=== PATIENT | female | born 1995 | race Hispanic/Latino ===

== ENCOUNTER → 2017-09-30 | Emergency (ER) | payer OTHER ==
[~2017-09-30] VITALS: Ht 160 cm; Wt 67.1 kg
[~2017-09-30] MED LIST: ABILIFY5 MG PO; ACETAMINOPHEN/CODEINE ELIX 120-12 MG/5 ML UDC NG ONE; ALBUTEROL SULF 0.083% NEB SOLN 3 ML NEB NEB STA; CEFDINIR300 MG PO; CEFUROXIME250 MG PO; DEXAMETHASONE SOD PHOS 10 MG/1 ML VIAL INJ ONE; ELAVIL10 MG; HYDROXYZINE HCL25 MG PO; IPRATROPIUM BROMIDE 0.02% 2.5 ML NEB NEB STA; LEXAPRO10 MG PO; ONDANSETRON HCL INJ 2 MG/ML VIAL IV ONE; PYRIDIUM100 MG PO; SEROQUEL25 MG PO; SODIUM CHLORIDE 0.9% 1000ML 1,000 ML IV STA; TOPAMAX25 MG PO; ULTRAM 50MG50 MG PO; Z MELATONIN PO; Z VYVANSE; Z.0.PREVACID15 MG MT; [UNRECOGNIZED DRUG - OTHER] MT
[2017-09-30 17:37] LABS: BASOPHILS % 0.4 % (0.0-1.0); EOSINOPHILS # (AUTO) 0.2 (0.0-0.4); EOSINOPHILS % 2.1 % (0.0-6.0); HEMATOCRIT 37.7 % (34.2-44.1); HEMOGLOBIN 12.2 g/dL (12.0-16.0); LYMPHOCYTES # (AUTO) 4.5 (1.0-3.2); MEAN CORPUSCULAR HEMOGLOBIN 25.3 pg (28-32); MEAN CORPUSCULAR HGB CONC 32.4 g/dL (31-35); MEAN CORPUSCULAR VOLUME 78.1 fL (81-99); MONOCYTES # (AUTO) 0.7 (0.2-0.8); MONOCYTES % 8.7 % (4.4-11.3); NEUTROPHILS # (AUTO) 2.7 (2.1-6.9); NEUTROPHILS % 33.6 % (38.7-80.0); PLATELET COUNT 370 x10e3/uL (140-360); RED BLOOD COUNT 4.83 x10e6/uL (3.6-5.1); RED CELL DISTRIBUTION WIDTH 14.6 % (11.7-14.4)
[2017-09-30 17:43] LABS: BILIRUBIN,URINE NEGATIVE (NEGATIVE); CLARITY,URINE HAZY (CLEAR); COLOR,URINE YELLOW (YELLOW); KETONES,URINE NEGATIVE (NEGATIVE); LEUKOCYTE ESTERASE ,URINE 1+ (NEGATIVE); NITRITE,URINE NEGATIVE (NEGATIVE); PROTEIN,URINE DIPSTICK NEGATIVE (NEGATIVE); URINE UROBILINOGEN 0.2 mg/dL (0.2 - 1)
[2017-09-30 17:44] LABS: STREPTOCOCCUS GRP A ANTIGEN NEGATIVE (NEGATIVE)
[2017-09-30 17:48] LABS: ALANINE AMINOTRANSFERASE 16 IU/L (0-55); ALBUMIN 3.8 g/dL (3.5-5.0); ALBUMIN/GLOBULIN RATIO 0.9 (0.8-2.0); ALKALINE PHOSPHATASE 88 IU/L (40-150); ANION GAP 11.2 mmol/L (8-16); BLOOD UREA NITROGEN 9 mg/dL (7-26); BUN/CREATININE RATIO 10 (6-25); CARBON DIOXIDE 21 mmol/L (22-29); CHLORIDE 111 mmol/L (98-107); CREATININE, SERUM 0.91 mg/dL (0.57-1.11); EST GLOMERULAR FILTRATION RATE > 60 ML/MIN (60-); GLUCOSE 96 mg/dL (74-118); LIPASE 37 U/L (8-78); POTASSIUM 3.2 mmol/L (3.5-5.1); SODIUM 140 mmol/L (136-145)
[2017-09-30 17:53] LABS: INFLUENZAE A&B ANTIGEN (RAPID) NEGATIVE (NEGATIVE)
[2017-09-30 17:55] LABS: BACTERIA,URINE MODERATE /HPF; EPITHELIAL CELLS,URINE MODERATE /LPF; WBC,URINE (MAN) 0-5 /HPF (0-5)
--- NOTE | 2017-09-30 18:05 | Diagnostic Imaging Report ---
EXAM: XR CHEST 2 VIEWS DATE: 09/30/2017 4:22 PM INDICATION: Cough COMPARISON: 08/21/2017 FINDINGS: Lines and Tubes: None Heart and Mediastinum: No acute findings. Lungs and Pleura: Minimal opacities in the lung bases statistically represent atelectasis, however, infectious process could have a similar appearance. Bones and Soft Tissues: No acute findings. IMPRESSION: 1. Probable basilar atelectasis. Correlation recommended. Signed by: Dr. Neo Leyva MD on 09/30/2017 6:02 PM
[2017-09-30 20:02] VITALS: BP 103/89
== END | disposition home or self-care (01) ==
LOC: ER 16:11
DX: J20.9 Acute bronchitis, unspecified (principal); J06.9 Acute upper respiratory infection, unspecified; R19.7 Diarrhea, unspecified; R11.2 Nausea with vomiting, unspecified; F31.9 Bipolar disorder, unspecified; K21.9 Gastro-esophageal reflux disease without esophagitis; G43.909 Migraine, unspecified, not intractable, without status migrainosus
CPT/HCPCS: 36415; 71020; 80053; 81001; 83518; 83690; 84702; 85025; 87070; 87086; 87400; 94644; 99284; J7030

== ENCOUNTER 2017-10-28 20:40 | Emergency (ER) | payer OTHER ==
[~2017-10-28] VITALS: Ht 160 cm; Wt 67.1 kg
[~2017-10-28 20:40] MED LIST changes: -ACETAMINOPHEN/CODEINE ELIX 120-12 MG/5 ML UDC NG ONE; -ALBUTEROL SULF 0.083% NEB SOLN 3 ML NEB NEB STA; -DEXAMETHASONE SOD PHOS 10 MG/1 ML VIAL INJ ONE; -IPRATROPIUM BROMIDE 0.02% 2.5 ML NEB NEB STA; -ONDANSETRON HCL INJ 2 MG/ML VIAL IV ONE; -SODIUM CHLORIDE 0.9% 1000ML 1,000 ML IV STA
--- OUTSIDE RECORDS SUMMARY | 2017-10-28 20:43 | XMS REPORT ---
Author Author [facility] Address Unknown Phone Unavailable Care Team Providers Care Long Distance Billing Operator Name Role Phone KIMMIE GONZALEZ Unavailable Unavailable JOSE ALBERTO RUBIO Unavailable Unavailable Problems This patient has no known problems. Allergies, Adverse Reactions, Alerts This patient has no known allergies or adverse reactions. Medications This patient has no known medications. Results Test Description Test Time Test Comments Text Results Atomic Results Result Comments CHEST 2 VIEWS [place] [address] Patient Name: MARII KITCHEN MR #: [id number] : 1995 Age/Sex: 22/F Req #: [id number] Adm Physician: Ordered by: JESSY HO JAVA APPLICATION DEVELOPER Report #: [id number] Location: ER Room/Bed: Procedure: [id number] DX/CHEST 2 VIEWS Exam Date: 09/30/17 Exam Time: 1736 REPORT STATUS: Signed EXAM: XR CHEST 2 VIEWS DATE: 09/30/2017 4:22 PM INDICATION: Cough COMPARISON: 08/21/2017 FINDINGS: Lines and Tubes: None Heart and Mediastinum: No acute findings. Lungs and Pleura: Minimal opacities in the lung bases statistically represent atelectasis, however, infectious process could have a similar appearance. Bones and Soft Tissues: No acute findings. IMPRESSION: 1. Probable basilar atelectasis. Correlation recommended. Signed by: Dr. Neo Leyva MD on 09/30/2017 6:02 PM Dictated By: NEO LEYVA MD 01 Transcribed By: KEISHA on 1801 COPY TO: JESSY HO NP CHEST SINGLE (PORTABLE) [place] [address] Patient Name: MARII KITCHEN MR #: [id number] : 1995 Age/Sex: 21/F Req #: [id number] Adm Physician: JOSE ALBERTO RUBIO MD Ordered by: JOHANNY BLACKWELL MD Report #: [id number] Location: [facility] Room/Bed: [place] [address] Procedure: [id number] DX/CHEST SINGLE (PORTABLE) Exam Date: 08/21/17 Exam Time: 2300 REPORT STATUS: Signed EXAM: CHEST SINGLE (PORTABLE), AP 1 view DATE: 08/21/2017 10:49 PM Time stamp on exam: 2253 hours INDICATION: Cough COMPARISON: None FINDINGS: LINES/TUBES: None LUNGS: No consolidations or edema. PLEURA: No effusions or pneumothorax. HEART AND MEDIASTINUM: Normal size and contour. BONES AND SOFT TISSUES: No acute findings. IMPRESSION: No acute thoracic abnormality. Signed by: Dr. Antonio Torres M.D. on 08/21/2017 11:30 PM Dictated By: ANTONIO TORRES MD 29 Transcribed By: KEISHA on 2329 COPY TO: JOHANNY BLACKWELL MD CT ABDOMEN/PELVIS WO [place] [address] Patient Name: MARII KITCHEN MR #: [id number] : 1995 Age/Sex: 21/F Req #: [id number] [facility] Physician: Ordered by: JESSY HO NP Report #: [id number] Location: ER Room/Bed: Procedure: [id number] CT/CT ABDOMEN/PELVIS WO Exam Date: 08/21/17 Exam Time: 1725 REPORT STATUS: Signed PROCEDURE: CT ABDOMEN AND PELVIS WITHOUT CONTRAST TECHNIQUE: The abdomen and pelvis were scanned utilizing a multidetector helical scanner from the diaphragm to the lesser trochanter after the oral administration of water. 2). No IV contrast was administered per stone protocol. Coronal and sagittal multiplanar reformations were obtained. COMPARISON: None. INDICATIONS: STONE PROTOCOL, BACK PAIN, UTI SINCE SAT FINDINGS: ABSENCE OF INTRAVENOUS CONTRAST DECREASES SENSITIVITY FOR DETECTION OF FOCAL LESIONS AND VASCULAR PATHOLOGY. LOWER THORAX: Lung bases are clear. HEPATOBILIARY: Moderate to marked diffuse hepatic steatosis. The liver is mildly enlarged, measuring 16 cm in the right midclavicular line. Normal contour. No focal lesions. No biliary ductal dilation. Gallbladder is unremarkable. SPLEEN: No splenomegaly. PANCREAS: No focal masses or ductal dilatation. ADRENALS: No adrenal nodules. KIDNEYS/URETERS: No renal or ureteral calculi. No hydronephrosis, hydroureter, or evidence of obstruction. No renal contour abnormalities. No significant perinephric stranding. PELVIC ORGANS/BLADDER: No bladder calculi. Bladder is decompressed and grossly unremarkable. Uterus is unremarkable. No adnexal masses. PERITONEUM / RETROPERITONEUM: No free air or fluid. LYMPH NODES: No lymphadenopathy. VESSELS: Unremarkable. GI TRACT: No bowel dilation or evidence of obstruction. Appendix is not identified, and normal in caliber. No pericolonic inflammatory changes. Stomach is unremarkable. BONES AND SOFT TISSUES: Unremarkable. IMPRESSION: 1. no renal, ureteral, or bladder calculi. No hydronephrosis or obstruction. 2. Mild hepatomegaly with moderate to marked diffuse hepatic steatosis. No focal lesions. Swati Anderson M.D. Dictated by: Swati Anderson M.D. on 01/2017 at 17:58 Electronically approved by: Swati Anderson M.D. on 08/21/2017 at 17:58 Dictated By: SWATI ANDERSON MD 57 Transcribed By: GRETA on 08/21/171757 COPY TO: JESSY HO NP
--- OUTSIDE RECORDS SUMMARY | 2017-10-28 20:43 | XMS REPORT | Clinical Summary ---
Author Author [facility] Address Unknown Phone Unavailable Care Team Providers Care Exhaust Emissions Automotive Technician Name Role Phone Asked, Pcp PCP Unavailable Allergies Active Allergy Reactions Severity Noted Date Comments Ciprofloxacin 10/02/2016 Dexamethasone 10/02/2016 Iodine 10/02/2016 Current Medications Prescription Sig. Disp. Refills Start End Date Status Date divalproex (DEPAKOTE) 250 Take 500 mg by mouth 3 Active MG EC tablet (three) times a day. PARoxetine (PAXIL) 20 MG Take 20 mg by mouth every Active tablet morning. OLANZapine (ZYPREXA) 5 MG Take 5 mg by mouth Active tablet nightly. topiramate (TOPAMAX) 100 Take 100 mg by mouth 2 Active MG tablet (two) times a day. butalbital-acetaminophen- Take 1 tablet by mouth Active caff (FIORICET, ESGIC) every 4 (four) hours as 50-325-40 mg per tablet needed for headaches. LORAZepam (ATIVAN) 1 MG Take 1 mg by mouth every Active tablet 6 (six) hours as needed for anxiety. meclizine (ANTIVERT) 12.5 Take 12.5 mg by mouth 3 Active mg tablet (three) times a day as needed for dizziness. metoclopramide (REGLAN) 5 Take 5 mg by mouth 4 Active MG tablet (four) times a day. keTOROlac (TORadol) 10 mg Take 10 mg by mouth every 12/16/19 Discontin tablet 6 (six) hours as needed 17 ued for moderate pain. ondansetron (ZOFRAN) 4 MG Take 1 tablet (4 mg 20 tablet 0 03/22/20 03/27/20 tablet total) by mouth every 6 17 17 (six) hours for 5 days. sulfamethoxazole-trimetho Take 1 tablet by mouth 2 14 tablet 0 03/29/20 prim (BACTRIM DS) 800-160 (two) times a day for 7 17 17 mg per tablet days. smx-tmp DS (BACTRIM) 800-160 mg tabs (1tab q12 D10) Active Problems Problem Noted Date Nausea 12/14/2016 Encounters Date Type Specialty Care Team Description 03/22/2017 Emergency Emergency Medicine Marla Louie, Urinary tract infection MD without hematuria, site unspecified (Primary Dx); Anxiety; Migraine without status migrainosus, not intractable, unspecified migraine type; Dehydration; Concussion, without loss of consciousness, initial encounter 12/14/2016 [facility] Internal Medicine Pretty Perez MD Intractable abdominal - Encounter migraine (Primary Dx); 12/15/2016 Nausea after 10/27/2016 Family History Medical History Relation Name Comments Breast cancer Maternal Grandmother Cerebral aneurysm Maternal Grandmother Migraines Maternal Grandmother Diabetes Mother Migraines Mother Relation Name Status Comments Maternal Grandmother Mother Social History Tobacco Use Types Packs/Day Years Used Date Light Tobacco Smoker Alcohol Use Drinks/Week oz/Week Comments Yes occasional Sex Assigned at Date Recorded Not on file Last Filed Vital Signs Vital Sign Reading Time Taken Blood Pressure 102/66 03/22/2017 10:26 PM CDT Pulse 82 03/22/2017 10:26 PM CDT Temperature 36.9 C (98.4 F) 03/22/2017 2:45 PM CDT Respiratory Rate 20 03/22/2017 10:26 PM CDT Oxygen Saturation 93% 03/22/2017 10:26 PM CDT Inhaled Oxygen - - Concentration Weight - - Height 160 cm (5' 3") 12/14/2016 8:04 PM CDT Body Mass Index - - Plan of Treatment Health Maintenance Due Date Last Done Comments PAP SMEAR 2015 INFLUENZA VACCINE 04/17/2017 05/17/2016, 07/12/2015, 10/14/2012, Additional history exists Implants Implanted Type Area Reconstructive Surgeon Device Expiration Model / Identifier Date Serial / Lot Iud Results * Gram stain (03/22/2017 8:58 PM) Component Value Ref Range Gram stain result Rare WBC's Few Gram positive cocci in pairs Comment: Specimen Information Specimen Source: Urine Specimen Site: See UA Specimen Performing Laboratory Urine [facility] DEPARTMENT OF PATHOLOGY AND GENOMIC MEDICINE [address] [place] [address] * Urine culture (03/22/2017 8:58 PM) Component Value Ref Range Urine culture isolate Enterococcus faecalis 10-5 cfu/ml The performance characteristics of this assay on this isolate were validated by the Microbiology Laboratory at [facility]. This source has not been approved by the U.S. Food and Drug Administration. The results are not intended to be used as the sole means for clinical diagnosis or patient management. The Microbiology Laboratory is authorized under the clinical Laboratory Improvement Amendments of 1988 (CLIA-88) to perform high complexity testing. The performance characteristics of this assay on this isolate were validated by the Microbiology Laboratory at [facility]. This source has not been approved by the U.S. Food and Drug Administration. The results are not intended to be used as the sole means for clinical diagnosis or patient management. The Microbiology Laboratory is authorized under the clinical Laboratory Improvement Amendments of 1988 (CLIA-88) to perform high complexity testing. (A) Comment: Specimen Information Specimen Source: Urine Specimen Site: See UA Urine culture isolate Gram negative rods <10-1 cfu/ml (A) Specimen Performing Laboratory Urine [facility] DEPARTMENT OF PATHOLOGY AND GENOMIC MEDICINE [address] [place] [address] Organism Antibiotic Method Susceptibility Enterococcus faecalis Ampicillin ANISHA 1 mcg/mL: Susceptible Enterococcus faecalis Nitrofurantoin ANISHA <=16 mcg/mL: Susceptible Enterococcus faecalis Levofloxacin ANISHA <=1 mcg/mL: Susceptible Enterococcus faecalis Linezolid ANISHA <=1 mcg/mL: Susceptible Enterococcus faecalis Minocycline ANISHA <=1 mcg/mL: Susceptible Enterococcus faecalis Tetracycline ANISHA <=0.5 mcg/mL: Susceptible Enterococcus faecalis Vancomycin ANISHA 1 mcg/mL: Susceptible * Urinalysis screen and microscopy, with reflex to culture (03/22/2017 8:40 PM) Component Value Ref Range Specimen site Clean catch Color, UA Straw Appearance, UA Clear Specific gravity, UA 1.008 1.001 - 1.035 pH, UA 6.0 5.0 - 8.5 Protein, UA Negative Negative Glucose, UA Negative Negative Ketones, UA Negative Negative Bilirubin, UA Negative Negative Blood, UA Negative Negative Nitrite, UA Negative Negative Urobilinogen, UA <2.0 <2.0 Leukocyte esterase, UA Small (A) Negative Epithelial cells, UA 1 /HPF WBC, UA 6 (H) 0 - 4 /HPF RBC, UA 2 0 - 2 /HPF Bacteria, UA Moderate (A) None seen Yeast, UA None seen Yeast with pseudohyphae, None seen UA Sperm, UA Few (A) Specimen Performing Laboratory Urine [facility] DEPARTMENT OF PATHOLOGY AND GENOMIC MEDICINE [address] [place] [address] * hCG qualitative, urine screen (03/22/2017 8:40 PM) Component Value Ref Range hCG qualitative, urine NegativeComment: Sensitivity of HCG test: 25 mIU/mL Specimen Performing Laboratory Urine [facility] DEPARTMENT OF PATHOLOGY AND GENOMIC MEDICINE [address] [place] [address] * CT Head Wo Contrast (03/22/2017 7:20 PM) Specimen Performing Laboratory [facility] [address] [place] [address] Narrative EXAMINATION: CT HEAD WO CONTRAST CLINICAL HISTORY: concussionhead trauma COMPARISON:None TECHNIQUE: Noncontrast CT of the brain was performed from the skull base to the vertex. Both soft tissue and bone reconstruction algorithms are interpreted. CT imaging was performed with iterative reconstruction techniques and/or automated exposure control to reduce radiation dose. FINDINGS: No intracranial hemorrhage, extra-axial collection, or mass-effect is seen. No acute cortical insult is identified. No hyperdense vessel is seen. No fracture is seen. No air-fluid level is seen in the visualized portions of the paranasal sinuses. Mastoid air cells are clear. IMPRESSION: No acute intracranial abnormality identified. [facility]-[id number] Procedure Note Interface, Radiology Results Incoming - 03/22/2017 7:26 PM CDT EXAMINATION: CT HEAD WO CONTRAST CLINICAL HISTORY: concussion head trauma COMPARISON: None TECHNIQUE: Noncontrast CT of the brain was performed from the skull base to the vertex. Both soft tissue and bone reconstruction algorithms are interpreted. CT imaging was performed with iterative reconstruction techniques and/or automated exposure control to reduce radiation dose. FINDINGS: No intracranial hemorrhage, extra-axial collection, or mass-effect is seen. No acute cortical insult is identified. No hyperdense vessel is seen. No fracture is seen. No air-fluid level is seen in the visualized portions of the paranasal sinuses. Mastoid air cells are clear. IMPRESSION: No acute intracranial abnormality identified. [facility]-[id number] * Whole blood electrolytes & glucose (03/22/2017 3:06 PM) Component Value Ref Range Sodium, whole blood 143 135 - 148 mEq/L Potassium, whole blood 3.5 3.5 - 5.0 mEq/L Chloride, whole blood 109 98 - 112 mEq/L CO2 calculated, whole 27 24 - 31 mEq/L blood Glucose, whole blood 91 65 - 99 mg/dL Specimen Performing Laboratory Blood [facility] DEPARTMENT OF PATHOLOGY AND [facility] [address] [place] [address] * Estimated GFR (03/22/2017 3:06 PM) Only the most recent of 3 results within the time period is included. Component Value Ref Range GFR Non Af Amer 78 mL/min/1.73 m2 GFR Af Amer >90 mL/min/1.73 m2 Comment: Chronic kidney disease: <60 mL/min/1.73m2 Kidney failure: <15 mL/min/1.73m2 The estimated GFR is calculated from the IDMS-traceable Modification of Diet in Renal Disease Equation. The accuracy of the calculation is poor when the creatinine is normal. Calculated values >90 mL/min/1.73m2 are not reported. This equation has not been validated in children (<18 years), women, the elderly (>70 years), or ethnic groups other than Caucasians and Americans. Specimen Performing Laboratory Plasma specimen [facility] DEPARTMENT OF PATHOLOGY AND GENOMIC MEDICINE [address] [place] [id number] * CK-MB (03/22/2017 3:06 PM) Component Value Ref Range CK-MB <1.0 1.0 - 5.3 ng/mL Specimen Performing Laboratory Plasma specimen [facility] DEPARTMENT OF PATHOLOGY AND GENOMIC [address] [address] * Troponin (03/22/2017 3:06 PM) Component Value Ref Range Troponin <0.30 0.00 - 0.30 ng/mL Comment: 0.30 - 1.49 ng/ml May indicate increased risk of acute coronary syndrome. >=1.5 ng/ml Consistent with acute myocardial infarction. The diagnostic value of a single normal or non-diagnostic result is questionable. Serial samples at 2-6 hour intervals are required to rule out acute myocardial injury. Specimen Performing Laboratory Plasma specimen [facility] DEPARTMENT OF PATHOLOGY AND GENOMIC MEDICINE [address] [place] [address] * D-dimer (03/22/2017 3:06 PM) Component Value Ref Range D-dimer 0.53 (H) 0.00 - 0.40 ug/mL FEU Comment: Units are ug/ml Fibrinogen Equivalent Unit. When combined with low clinical probability, D-dimer results of less than 0.5 ug/ml FEU have a good negative predictive value in excluding PE or DVT. For D-dimer results greater than 0.5 ug/ml FEU further testing is indicated if PE or DVT is suspected clinically. Elevated D-dimer results have been reported in DVT, PE, and DIC cases and may indicate the presence of a clot. D-dimer results may be elevated due to old age, , inflammatory diseases, trauma, post-operative states, sepsis, and malignancies. Specimen Performing Laboratory Blood [facility] DEPARTMENT OF PATHOLOGY AND GENOMIC MEDICINE [address] [place] [address] * CBC with platelet and differential (03/22/2017 3:06 PM) Only the most recent of 3 results within the time period is included. Component Value Ref Range WBC 9.66 4.50 - 11.00 k/uL RBC 4.75 4.20 - 5.50 m/uL HGB 13.4 12.0 - 16.0 g/dL HCT 41.7 37.0 - 47.0 % MCV 87.8 82.0 - 100.0 fL MCH 28.2 27.0 - 34.0 pg MCHC 32.1 31.0 - 37.0 g/dL RDW - SD 49.3 37.0 - 55.0 fL MPV 9.2 8.8 - 13.2 fL Platelet count 214 150 - 400 k/uL Nucleated RBC 0.00 /100 WBC Neutrophils 52.1 39.0 - 69.0 % Lymphocytes 38.5 25.0 - 45.0 % Monocytes 7.8 0.0 - 10.0 % Eosinophils 1.3 0.0 - 5.0 % Basophils 0.2 0.0 - 1.0 % Immature granulocytes 0.1Comment: "Immature granulocytes" 0.0 - 1.0 % (promyelocytes, myelocytes, metamyelocytes) Specimen Performing Laboratory [facility] DEPARTMENT OF PATHOLOGY AND GENOMIC MEDICINE [address] [place] [address] * hCG qualitative, serum screen (03/22/2017 3:06 PM) Component Value Ref Range hCG qualitative, serum NegativeComment: Sensitivity of HCG test: 25 mIU/mL Specimen Performing Laboratory Blood [facility] DEPARTMENT OF PATHOLOGY AND GENOMIC MEDICINE [address] [place] [address] * BUN level (03/22/2017 3:06 PM) Component Value Ref Range BUN 7 6 - 20 mg/dL Specimen Performing Laboratory Plasma specimen [facility] DEPARTMENT OF PATHOLOGY AND [facility] [address] [place] [address] * B natriuretic peptide (03/22/2017 3:06 PM) Component Value Ref Range BNP 22 0 - 100 pg/mL Specimen Performing Laboratory [facility] DEPARTMENT OF PATHOLOGY AND [facility] [address] [place] [address] * Creatinine level (03/22/2017 3:06 PM) Component Value Ref Range Creatinine 0.9 0.5 - 0.9 mg/dL Specimen Performing Laboratory Plasma specimen [facility] DEPARTMENT OF PATHOLOGY AND [facility] [address] [place] [address] * Creatine kinase, total (CPK) (03/22/2017 3:06 PM) Component Value Ref Range Creatine kinase 50 26 - 192 U/L Specimen Performing Laboratory Plasma specimen [facility] DEPARTMENT OF PATHOLOGY [facility] [address] [place] [address] * Alcohol level, blood (03/22/2017 3:06 PM) Component Value Ref Range Alcohol None Detected mg/dL Comment: Normal None Detected Legal Intoxication in [place] 80 mg/dL (0.08%) - Whole Blood Toxic Concentration 200 mg/dL (0.2%) Potentially Fatal 350 - 500 mg/dL (0.35 - 0.5%) Alcohol percent None Detected % Specimen Performing Laboratory Plasma specimen [facility] DEPARTMENT OF PATHOLOGY AND [facility] [address] [place] [address] * Acetaminophen level (03/22/2017 3:06 PM) Component Value Ref Range Acetaminophen level <15.0 10.0 - 30.0 ug/mL Comment: Therapeutic 10-30 ug/mL Possible Toxicity 150-200 ug/mL Probable Toxicity >200 ug/mL Specimen Performing Laboratory Plasma specimen [facility] DEPARTMENT OF PATHOLOGY AND [facility] [address] [place] [address] * Urine drugs of abuse screen (12/15/2016 5:22 AM) Component Value Ref Range Amphetamine screen, urine Negative Barbiturate screen, urine Positive (A) Benzodiazepine screen, Negative urine Cannabinoid screen, urine Negative Cocaine screen, urine Negative Methadone metabolite Negative (EDDP), urine Opiates screen, urine Negative Oxycodone screen, urine Negative Phencyclidine screen, Negative urine Tricyclic screen, urine Positive (A) Comment: Drug screen minimum concentration of detectability Amphetamines 1000 ng/mL Barbiturates 200 ng/mL Benzodiazepines 300 ng/mL Cocaine 300 ng/mL Methadone 3 00 ng/mL Opiates 300 ng/mL Oxycodone 3 00 ng/mL Phencyclidine 25 ng/mL Cannabinoids 50 ng/mL Tricyclics 1000 ng/mL Negative test results indicates presumptive evidence of lack of clinically significant drug concentration in this urine specimen. Positive test results are presumptive evidence of clinically significant drug concentration in this urine specimen. Testing performed for medical purposes only. Specimen Performing Laboratory Urine [facility] DEPARTMENT OF PATHOLOGY AND GENOMIC MEDICINE [address] [place] [address] * Basic metabolic panel (12/15/2016 5:18 AM) Component Value Ref Range Sodium 141 135 - 148 mEq/L Potassium 4.0 3.5 - 5.0 mEq/L Chloride 107 98 - 112 mEq/L CO2 23 (L) 24 - 31 mEq/L Anion gap 11 7 - 15 mEq/L Comment: Starting from December , anion gap calculation no longer incorporates potassium. Please note the change. BUN 8 6 - 20 mg/dL Creatinine 0.8 0.5 - 0.9 mg/dL Glucose 88 65 - 99 mg/dL Calcium 8.5 8.3 - 10.2 mg/dL Specimen Performing Laboratory Plasma specimen [facility] DEPARTMENT OF PATHOLOGY AND [facility] [address] [place] [address] * ECG 12 lead (12/15/2016 3:14 AM) Component Value Ref Range Ventricular rate 83 Atrial rate 83 TX interval 188 QRSD interval 78 QT interval 404 QTC interval 474 P axis 1 61 QRS axis 1 89 T wave axis 67 EKG impression Normal sinus rhythm-Normal ECG-No previous ECGs available- Specimen Performing Laboratory [facility] [address] [place] [address] * Valproic acid level (12/14/2016 10:51 PM) Component Value Ref Range Valproic acid 41.5 (L) 50.0 - 100.0 ug/mL Comment: Therapeutic Range: 50 - 100 ug/mL Specimen Performing Laboratory Plasma specimen [facility] DEPARTMENT OF PATHOLOGY AND [facility] [address] [place] [address] * Comprehensive metabolic panel (12/14/2016 10:51 PM) Component Value Ref Range Sodium 142 135 - 148 mEq/L Potassium 3.9 3.5 - 5.0 mEq/L Chloride 107 98 - 112 mEq/L CO2 21 (L) 24 - 31 mEq/L Anion gap 14 7 - 15 mEq/L Comment: Starting from December , anion gap calculation no longer incorporates potassium. Please note the change. BUN 7 6 - 20 mg/dL Creatinine 0.7 0.5 - 0.9 mg/dL Glucose 124 (H) 65 - 99 mg/dL Calcium 8.3 8.3 - 10.2 mg/dL Protein 6.8 6.3 - 8.3 g/dL Comment: [place] 4.6-7.0 g/dL 1 week 4.4-7.6 g/dL 7 months-1year 5.1-7.3 g/dL 1-2 years 5.6-7.5 g/dL >3 years 6.0-8.0 g/dL 18-150 6.3-8.3 g/dL Albumin 3.2 (L) 3.5 - 5.0 g/dL A/G ratio 0.9 0.7 - 3.8 Alkaline phosphatase 74 35 - 104 U/L AST 20 10 - 35 U/L ALT 22 5 - 50 U/L Total bilirubin <0.2 0.0 - 1.2 mg/dL Specimen Performing Laboratory Plasma specimen [facility] DEPARTMENT OF PATHOLOGY AND GENOMIC MEDICINE [address] [place] [address] after 10/27/2016 Insurance Payer Benefit Subscriber ID Type Phone Address Plan / Group AETNA AETNA PPO xxxxxxxxxx PPO OPEN CHOICE
[2017-10-28] MEDS ORDERED: PANTOPRAZOLE 40 MG 10ML VIAL IV STA (21:42)
[2017-10-28] MEDS ORDERED: ONDANSETRON HCL INJ 2 MG/ML VIAL IV STA (21:42)
[2017-10-28] MEDS ORDERED: SODIUM CHLORIDE 0.9% 1000ML 1,000 ML IV STA (21:42)
[2017-10-28] MEDS ORDERED: DICYCLOMINE HCL 20 MG/2 ML VIAL IM ONE ×2 (22:00)
[2017-10-28 22:34] LABS: BASOPHILS # (AUTO) 0.1 (0.0-0.1); BASOPHILS % 0.5 % (0.0-1.0); EOSINOPHILS # (AUTO) 0.2 (0.0-0.4); EOSINOPHILS % 2.2 % (0.0-6.0); HEMATOCRIT 40.8 % (34.2-44.1); HEMOGLOBIN 12.8 g/dL (12.0-16.0); LYMPHOCYTES # (AUTO) 4.9 (1.0-3.2); LYMPHOCYTES % 48.7 % (18.0-39.1); MEAN CORPUSCULAR HGB CONC 31.4 g/dL (31-35); MEAN CORPUSCULAR VOLUME 79.5 fL (81-99); MONOCYTES # (AUTO) 0.8 (0.2-0.8); MONOCYTES % 7.6 % (4.4-11.3); NEUTROPHILS % 40.6 % (38.7-80.0); PLATELET COUNT 345 x10e3/uL (140-360); RED BLOOD COUNT 5.13 x10e6/uL (3.6-5.1); RED CELL DISTRIBUTION WIDTH 14.4 % (11.7-14.4)
[2017-10-28 22:37] LABS: BILIRUBIN,URINE NEGATIVE (NEGATIVE); COLOR,URINE YELLOW (YELLOW); KETONES,URINE NEGATIVE (NEGATIVE); LEUKOCYTE ESTERASE ,URINE NEGATIVE (NEGATIVE); NITRITE,URINE NEGATIVE (NEGATIVE); PROTEIN,URINE DIPSTICK NEGATIVE (NEGATIVE); URINE UROBILINOGEN 0.2 mg/dL (0.2 - 1)
[2017-10-28 22:39] LABS: CLARITY,URINE SL CLOUDY (CLEAR)
[2017-10-28 22:40] LABS: PREGNANCY TEST, URINE NEGATIVE (NEGATIVE)
[2017-10-28 22:55] LABS: BACTERIA,URINE MANY /HPF; EPITHELIAL CELLS,URINE FEW /LPF
[2017-10-28 22:59] LABS: ALANINE AMINOTRANSFERASE 33 IU/L (0-55); ALBUMIN/GLOBULIN RATIO 0.9 (0.8-2.0); ALKALINE PHOSPHATASE 108 IU/L (40-150); AMYLASE 39 U/L (25-125); ANION GAP 11.8 mmol/L (8-16); BLOOD UREA NITROGEN 10 mg/dL (7-26); BUN/CREATININE RATIO 14 (6-25); CALCIUM 9.4 mg/dL (8.4-10.2); CARBON DIOXIDE 25 mmol/L (22-29); CHLORIDE 104 mmol/L (98-107); CREATININE, SERUM 0.74 mg/dL (0.57-1.11); EST GLOMERULAR FILTRATION RATE > 60 ML/MIN (60-); GLUCOSE 101 mg/dL (74-118); LIPASE 36 U/L (8-78); MAGNESIUM 1.9 MG/DL (1.3-2.1); POTASSIUM 3.8 mmol/L (3.5-5.1); SODIUM 137 mmol/L (136-145)
[2017-10-29] MEDS ORDERED: CEFTRIAXONE SOD 1 GM VIAL IV STA (00:07)
--- NOTE | 2017-10-29 00:47 | Diagnostic Imaging Report ---
EXAM: Right Upper Quadrant Ultrasound INDICATION: Abdominal pain COMPARISON: None. TECHNIQUE: Transverse and longitudinal images of the right upper abdomen were obtained. FINDINGS: Liver: Size: 17.9 cm in the right midclavicular line, large Appearance: Increased echogenicity, smooth contour Mass: No focal masses Gallbladder: Stones/Sludge: None Wall: 0.3 cm Appearance: Contracted. Sonographic Zhang's Sign: Negative Bile Ducts: Intrahepatic Ducts: No dilatation Extrahepatic Ducts: Common bile duct measures 0.3 cm, no dilatation Pancreas: Visualized portions of the pancreatic head, neck and proximal body are normal. Kidneys: Length: Right 10.6 cm Echogenicity: Normal Collecting System: No hydronephrosis Stone: None Cyst/Mass: None Vessels: Aorta: Visualized portions are normal Inferior Vena Cava: Visualized portions are normal Main Portal Vein: 1.2 cm, normal size with hepatopetal flow. Free Fluid: No ascites or pleural effusion IMPRESSION: Hepatomegaly and diffuse hepatic steatosis. Signed by: Dr. Dileep Parnell M.D. on 10/29/2017 12:44 AM
[2017-10-29] MEDS ORDERED: CEFTRIAXONE SOD 1 GM VIAL ONE (01:23)
== END 2017-10-29 01:16 | disposition home or self-care (01) ==
LOC: ER 20:40
DX: R10.11 Right upper quadrant pain (principal); R10.33 Periumbilical pain; R11.0 Nausea; N30.91 Cystitis, unspecified with hematuria; F17.210 Nicotine dependence, cigarettes, uncomplicated
CPT/HCPCS: 36415; 76705; 80053; 81001; 81025; 82150; 83690; 83735; 85025; 87086; 99284; J0500; J0696; J2405; J7030

== ENCOUNTER 2018-05-01 20:13 | Emergency (ER) | payer OTHER ==
[~2018-05-01] VITALS: Ht 160 cm; Wt 73.3 kg
[2018-05-01] MEDS ORDERED: PROMETHAZINE HCL (IM) 25 MG/ML VIAL IM ONE (21:00)
[2018-05-01] MEDS ORDERED: LORAZEPAM 1 MG TAB PO ONE (21:00)
[2018-05-01] MEDS ORDERED: SODIUM CHLORIDE 0.9% 1000ML 1,000 ML ONE (21:00)
[2018-05-01] MEDS ORDERED: KETOROLAC TROMETHAMINE 30 MG/ML VIAL IV ONE (21:00)
[2018-05-01] MEDS ORDERED: LORAZEPAM INJ 2 MG/ML VIAL IV ONE (22:15)
[2018-05-01] MEDS ORDERED: METOCLOPRAMIDE HCL 10 MG/2ML VIAL IV ONE (22:15)
--- NOTE | 2018-05-01 22:36 | Diagnostic Imaging Report ---
History: Migranes Comparison studies: None Technique: Axial images were obtained from the skull base to the vertex. Coronal and sagittal reconstructions obtained from the axial data. Findings: Scalp/skull: No abnormalities. No fractures, blastic or lytic lesions. Extra-axial spaces: No masses. No fluid collections. Brain sulci: Appropriate for age. Ventricles: Normal in size and configuration. No hydrocephalus. Parenchyma: No abnormal densities. No masses, hemorrhage, acute or chronic cortical vascular insults. Sellar/suprasellar region: No abnormalities Craniocervical junction: Patent foramen magnum. No Chiari one malformation. IMPRESSION: No abnormalities . Signed by: DR Jt Quarles M.D. on 05/01/2018 10:33 PM
[2018-05-02] MEDS ORDERED: ZOFRAN ODT4 MG SL (00:48)
[2018-05-02] MEDS ORDERED: PROMETHAZINE HC25 M1 PO (00:52)
== END 2018-05-02 00:54 | disposition home or self-care (01) ==
LOC: FSED 20:13
DX: G43.111 Migraine with aura, intractable, with status migrainosus (principal); F31.9 Bipolar disorder, unspecified; F41.9 Anxiety disorder, unspecified; K58.9 Irritable bowel syndrome, unspecified
CPT/HCPCS: 70450; 81025; 99283; J1885; J2550; J7030

== ENCOUNTER 2018-07-17 20:27 | Emergency (ER) | payer OTHER ==
[~2018-07-17] VITALS: Ht 160 cm; Wt 73.0 kg
[~2018-07-17 20:27] MED LIST changes: +PROMETHAZINE HC25 M1 PO; +ZOFRAN ODT4 MG SL
--- OUTSIDE RECORDS SUMMARY | 2018-07-17 20:32 | XMS REPORT | Continuity of Care Document ---
Author Author Jersey anderson Organization Interface Address Unknown Phone Unavailable Problems Problem Status Onset Date Classification Date Reported Comments Source INTRACTABLE MIGRAINE PAIN Active 08/04/2016 [facility] Discharge Diagnosis: Headache 07/13/2016 07/16/2016 [place] HEADACHE Active 07/12/2016 [facility] MIGRAINE Active 07/12/2016 [facility] Discharge Diagnosis: Migraine 07/11/2016 07/14/2016 [facility] Discharge Diagnosis: Atypical chest pain 07/11/2016 07/14/2016 [facility] CHEST PAIN Active 07/11/2016 [facility] PYELONEPHRITIS, NEW DX OF Active 06/27/2015 [facility] Discharge Diagnosis: Abdominal pain, acute 03/06/2015 03/09/2015 [facility] H/A Active 01/25/2015 [facility] UNK Active 08/20/2014 [facility] ICD 727.04 719.43 / CPT 71083 90291 Active 08/20/2014 [facility] 923.21=CONTUSION OF LEFT WRIST/842.00=LE Active 08/03/2014 [facility] Discharge Diagnosis: Nausea and vomiting in adult 06/25/2014 06/28/2014 [facility] Discharge Diagnosis: Abdominal pain 06/25/2014 06/28/2014 [facility] Discharge Diagnosis: Acute gastritis 06/25/2014 06/28/2014 [facility] ABDOMINAL PAIN/NAUSEA OR VOMITING Active 06/25/2014 [facility] POSS APPENDICITIS Active 04/13/2014 [facility] BACTERIAL VAGINOSIS,ACUTE UTI,MICROCTIC Active 04/13/2014 [facility] ABDOMINAL PAIN Active 04/13/2014 [facility] MENINGITIS Active 11/18/2013 [facility] HEADACHE, FEVER, LEUKOCYTOSIS Active 11/18/2013 [facility] VOMITING/HEADACHE Active 08/16/2012 [facility] DSU/ ABD PAIN Active 01/17/2012 [facility] LEFT SIDE PAIN Active 01/10/2012 [facility] Pain Active Problem 08/18/2012 [facility] Seizure disorder Active Problem 08/18/2012 [facility] Final: Migraine without Aura, without Mention of Intractable Migraine, without Mention of Status Migrainosus 11/14/2013 [facility] [place] Acid reflux Active Problem 08/09/2016 [facility] [place], [place] IBS (<span ID="[id number]">Confirmed</span>) Resolved Problem 08/09/2016 [facility] [place], [place] Migraines Resolved Problem 08/09/2016 [facility] [place], [place] Pain Active Problem 08/09/2016 [facility] [place], [place] Seizure disorder Active Problem 11/23/2013 [facility] [place], [place] Acid reflux Active Problem 07/15/2016 [facility] [place],[facility] IBS (<span ID="[id number]">Confirmed</span>) Resolved Problem 07/15/2016 [facility] [place],[facility] Migraines Resolved Problem 07/15/2016 [facility] [place],[facility] Pain Active Problem 07/15/2016 [facility] [place],[facility] Acid reflux Active Problem 07/16/2016 [facility] [place], [place] Anxiety Active Problem 07/16/2016 [facility], [place] Anxiety about loss of control Active Problem 07/16/2016 [facility], [place] Depression Resolved Problem 07/16/2016 [facility], [place] IBS (<span ID="[id number]">Confirmed</span>) Resolved Problem 07/16/2016 [facility] [place], [place] Migraines Resolved Problem 07/16/2016 [facility] [place], [place] 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 [facility], [place] Pain Active Problem 07/16/2016 OP[facility]ier [place], [place] Anxiety Active Problem 08/09/2016 [facility], [place] Anxiety about loss of control Active Problem 08/09/2016 [facility], [place] Depression Resolved Problem 08/09/2016 [facility] 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/2016 [facility], [place] Hypotension, postural Resolved Problem 08/09/2016 [facility] MENINGITIS NOS Active [facility] URIN TRACT INFECTION NOS Active [facility] CONTUSION OF WRIST Active [facility] SPRAIN OF WRIST NOS Active [facility] JOINT PAIN-FOREARM Active [facility] HEADACHE Active [facility] ACUTE TUBULO-INTERSTITIAL NEPHRITIS Active [facility] Medications Medication Details Route Status Patient Instructions Ordering Provider Order Date Source gabapentin 300 MG Oral Capsule 300 mg, 1 cap, Route: PO, Drug form: CAP, BID, Dosing Weight 65.455, kg, Start date: 08/05/16 19:11:00 VO[employer] NETWORK ENGINEER, Duration: 30 day, Stop date: 09/04/16 17:00:00 CSTNotes: (Same as: Neurontin) No Longer Active 08/06/2016 [facility] Valproic Acid 100 MG/ML Injectable Solution [Depacon] 500 mg, 5 mL, Route: IVPB, Drug form: INJ, ONCE, Dosing Weight 65.455, kg, Priority: NOW, Start date: 08/05/16 12:52:00 VOIP NETWORK ENGINEER, Stop date: 08/05/16 12:52:00 CSTNotes: Dilute in at least 50ml D5W or NS. Infusion rate=20 mg/min (Same As: Depacon) Inactive 08/05/2016 [facility] Solu-Medrol 125 mg, 2 mL, Route: IVP, Drug form: INJ, ONCE, Dosing Weight 65.455, kg, Priority: NOW, Start date: 08/05/16 12:52:00 VOIP NETWORK ENGINEER, Stop date: 08/05/16 12:52:00 CSTNotes: (Same as:Solu-MEDROL, A-Methapred) Inactive 08/05/2016 [facility] ketOROLAC 30 mg/mL injectable solution 30 mg, 1 mL, Route: IVP, Drug form: INJ, Q6H, Dosing Weight 65.455, kg, PRN Pain Score 4-6, Priority: NOW, Start date: 08/05/16 12:52:00 VOIP NETWORK ENGINEER, Duration: 4 day, Stop date: 08/09/16 12:51:00 CSTNotes: (Same as:Toradol) IV bolus must be given >15 seconds. Give IM administration slowly and deeply into the muscle. Not for use > 4 days MEDICATION WASTE Product Size: 30 mg Product Wasted: ___ mg No Longer Active 08/05/2016 [facility] Dilaudid 0.5 mg, 0.5 mL, Route: IVP, Drug form: INJ, Q6H, Dosing Weight 65.455, kg, PRN Pain Score 7-10, Start date: 08/05/16 12:51:00 VOIP NETWORK ENGINEER, Duration: 30 day, Stop date: 09/04/16 12:50:00 VOIP NETWORK ENGINEER No Longer Active 08/05/2016 [facility] ketOROLAC 30 mg/mL injectable solution 30 mg, 1 mL, Route: IVP, Drug form: INJ, ONCE, Dosing Weight 65.455, kg, Start date: 08/05/16 1:45:00 VOIP NETWORK ENGINEER, Duration: 1 doses or times, Stop date: 08/05/16 1:45:00 CSTNotes: (Same as:Toradol) IV bolus must be given >15 seconds. Give IM administration slowly and deeply into the muscle. Not for use > 4 days MEDICATION WASTE Product Size: 30 mg Product Wasted: ___ mg Inactive 08/05/2016 [facility] Promethazine 12.5 mg, 0.5 mL, Route: IVPB, Q8H, Dosing Weight 65.455, kg, PRN as needed for nausea/vomiting, Start date: 08/05/16 1:14:00 VOIP NETWORK ENGINEER, Duration: 30 day, Stop date: 09/04/16 1:13:00 CSTNotes: Do not give IV push. (Same as: Phenergan) No Longer Active 08/05/2016 [facility] ketOROLAC 30 mg/mL injectable solution 30 mg, 1 mL, Route: IVP, Drug form: INJ, ONCE, Dosing Weight 65.455, kg, Start date: 08/05/16 1:12:00 VOIP NETWORK ENGINEER, Duration: 1 doses or times, Stop date: 08/05/16 1:12:00 CSTNotes: (Same as:Toradol) IV bolus must be given >15 seconds. Give IM administration slowly and deeply into the muscle. Not for use > 4 days MEDICATION WASTE Product Size: 30 mg Product Wasted: ___ mg Inactive 08/05/2016 [facility] Saline Flush 0.9% 10 ml, Route: IVP, Drug Form: INJ, Dosing Weight 65.455, kg, PRN, PRN Line Flush, Start date: 08/04/16 21:17:00 VOIP NETWORK ENGINEER, Duration: 30 day, Stop date: 09/03/16 21:16:00 CSTNotes: (Same as: BD Posiflush) No Longer Active 08/05/2016 [facility] Glucose 50 MG/ML / Sodium Chloride 0.154 MEQ/ML Injectable Solution 1,000 mL, Rate: 125 ml/hr, Infuse over: 8 hr, Route: IV, Dosing Weight 65.455 kg, Total Volume: 1,000, Start date: 08/04/16 21:17:00 VOIP NETWORK ENGINEER, Duration: 30 day, Stop date: 09/03/16 21:16:00 VOIP NETWORK ENGINEER No Longer Active 08/05/2016 [facility] Ondansetron 4 mg, 2 mL, Route: IVP, Drug form: INJ, Q6H, Dosing Weight 65.455, kg, PRN Nausea & Vomiting, Start date: 08/04/16 21:17:00 VOIP NETWORK ENGINEER, Duration: 30 day, Stop date: 09/03/16 21:16:00 CSTNotes: (Same as: [place]) MEDICATION WASTE Product Size: 4 mg Product Wasted: ___ mg No Longer Active 08/05/2016 [facility] Acetaminophen 325 MG / Hydrocodone Bitartrate 5 MG Oral Tablet 2 tab, Route: PO, Drug Form: TAB, Dosing Weight 65.455, kg, Q4H, PRN Pain Score 7-10, Start date: 08/04/16 21:17:00 VOIP NETWORK ENGINEER, Duration: 30 day, Stop date: 09/03/16 21:16:00 CSTNotes: (Same as: [place] 325/5) Do not exceed 4gm/day of acetaminophen. No Longer Active 08/05/2016 [facility] Morphine 2 mg, Route: IVP, Q4H, Dosing Weight 65.455, kg, PRN Pain Score 7-10, Start date: 08/04/16 21:17:00 VOIP NETWORK ENGINEER, Duration: 30 day, Stop date: 09/03/16 21:16:00 VOIP NETWORK ENGINEER Inactive 08/05/2016 [facility] Dilaudid 0.5 mg, 0.5 mL, Route: IVP, Drug form: INJ, Q3H, Dosing Weight 65.455, kg, PRN Pain Score 7-10, Start date: 08/04/16 21:11:00 VOIP NETWORK ENGINEER, Duration: 30 day, Stop date: 09/03/16 21:10:00 VOIP NETWORK ENGINEER No Longer Active 08/05/2016 [facility] topiramate 50 mg oral tablet 50 mg=1 tab, PO, BID, # 60 tab, 1 Refill(s) Active 08/05/2016 [facility] quetiapine 100 MG Oral Tablet [Seroquel] 100 mg=1 tab, PO, Bedtime, 0 Refill(s) Active 08/05/2016 [facility] quetiapine 25 MG Oral Tablet [Seroquel] 25 mg=1 tab, PO, Daily, 0 Refill(s) Active 08/05/2016 [facility] Prozac 30 mg, PO, Daily, 0 Refill(s) Active 08/05/2016 [facility] Phenergan 12.5 mg, Route: IVPB, ONCE, Dosing Weight 60, kg, Priority: STAT, Start date: 07/13/16 1:38:00 CDT, Stop date: 07/13/16 1:38:00 CDT Inactive 07/13/2016 [facility] Diphenhydramine 25 mg, 0.5 mL, Route: IVP, Drug form: INJ, ONCE, Dosing Weight 60, kg, Priority: STAT, Start date: 07/13/16 1:06:00 CDT, Stop date: 07/13/16 1:06:00 CDTNotes: (Same as: Benadryl) Inactive 07/13/2016 [facility] Metoclopramide 10 mg, 2 mL, Route: IVP, Drug form: INJ, ONCE, Dosing Weight 60, kg, Priority: STAT, Start date: 07/13/16 1:06:00 CDT, Stop date: 07/13/16 1:06:00 CDTNotes: (Same as: Reglan) Inactive 07/13/2016 [facility] Sodium Chloride 0.154 MEQ/ML Injectable Solution 1,000 mL, 2,000 ml/hr, Infuse Over: 30 minutes, Route: IV, 1,000, Drug form: INJ, ONCE, Priority: STAT, Dosing Weight 60 kg, Start date: 07/13/16 1:06:00 CDT, Duration: 1 doses or times, Stop date: 07/13/16 1:06:00 CDT Inactive 07/13/2016 [facility] Morphine 4 mg, Route: IVP, ONCE, Dosing Weight 62.727, kg, Priority: STAT, Start date: 07/11/16 4:06:00 CDT, Stop date: 07/11/16 4:06:00 CDT Inactive 07/11/2016 [facility] Phenergan 12.5 mg, 0.5 mL, Route: IVPB, ONCE, Dosing Weight 62.727, kg, Priority: STAT, Start date: 07/11/16 3:01:00 CDT, Stop date: 07/11/16 3:01:00 CDTNotes: Do not give IV push. (Same as: Phenergan) Inactive 07/11/2016 [facility] Dexamethasone 10 mg, Route: IVP, ONCE, Dosing Weight 62.727, kg, Priority: STAT, Start date: 07/11/16 2:35:00 CDT, Stop date: 07/11/16 2:35:00 CDT Inactive 07/11/2016 [facility] Diphenhydramine 25 mg, Route: IVP, ONCE, Dosing Weight 62.727, kg, Priority: STAT, Start date: 07/11/16 2:34:00 CDT, Stop date: 07/11/16 2:34:00 CDT Inactive 07/11/2016 [facility] Metoclopramide 10 mg, Route: IVP, Drug form: INJ, ONCE, Dosing Weight 62.727, kg, Priority: STAT, Start date: 07/11/16 2:34:00 CDT, Stop date: 07/11/16 2:34:00 CDT Inactive 07/11/2016 [facility] Sodium Chloride 0.154 MEQ/ML Injectable Solution 1,000 mL, 2,000 ml/hr, Infuse Over: 30 minutes, Route: IV, ONCE, Priority: STAT, Dosing Weight 62.727 kg, Start date: 07/11/16 2:34:00 CDT, Duration: 1 doses or times, Stop date: 07/11/16 2:34:00 CDT Inactive 07/11/2016 [facility] cefpodoxime 100 mg, 1 tab, Route: PO, Drug form: TAB, [id number], Dosing Weight 59.091, kg, Start date: 06/29/15 12:00:00, Duration: 30 day, Stop date: 07/29/15 0:00:00Notes: With food. (Same As: Vantin) Inactive 06/29/2015 [facility] Multivitamins with Folic Acid 1 mg oral tablet 1 mg=1 tab, PO, Daily, # 90 tab, 3 Refill(s) Active 06/29/2015 [facility] cefpodoxime 100 mg oral tablet 100 mg, PO, [id number], # 24 tab, 0 Refill(s) Active 06/29/2015 [facility] Potassium Chloride 20 MEQ Extended Release Tablet 20 mEq, 1 tab, Route: PO, Drug form: ERTAB, ONCE, Dosing Weight 59.091, kg, Start date: 06/29/15 11:35:00, Stop date: 06/29/15 11:35:00Notes: (Same as: K-Dur 20) "Do Not Crush" With food and full glass of water Inactive 06/29/2015 [facility] Phenergan 25 mg, 1 mL, Route: IVPB, Q4H, Dosing Weight 59.091, kg, PRN Nausea & Vomiting, Start date: 06/29/15 3:56:00, Duration: 30 day, Stop date: 07/29/15 3:55:00Notes: Do not give IV push. (Same as: Phene rgan) Inactive 06/29/2015 [facility] Acetaminophen 650 mg, 20.3 mL, Route: PO, Drug form: LIQ, Q6H, Dosing Weight 59.091, kg, PRN Pain Score 1-3, Start date: 06/28/15 18:51:00, Duration: 30 day, Stop date: 07/28/15 18:50:00Notes: Max easphdlpatipe=9617gc/day (4 gm/day). (Same as: Tylenol) Inactive 06/28/2015 [facility] Tylenol 650 mg, 2 tab, Route: PO, Drug form: TAB, Q6H, Dosing Weight 59.091, kg, PRN Pain 1-3/Temp > 100.4 F, Start date: 06/28/15 17:34:00, Stop date: 07/28/15 17:33:00, fever, pain, headacheNotes: Do not e xceed 4 gm/day. (Same as: Tylenol) No Longer Active 06/28/2015 [facility] Zofran 4 mg, 2 mL, Route: IV, Drug form: INJ, Q4H, Dosing Weight 59.091, kg, PRN Nausea, Start date: 06/28/15 12:33:00, Duration: 30 day, Stop date: 07/28/15 12:32:00Notes: (Same as: Zofran) MEDICATION WASTE Product Size: 4 mg Product Wasted: ___ mg No Longer Active 06/28/2015 [facility] Multivitamins with Folic Acid 1 mg oral tablet 1 tab, Route: PO, Drug Form: TAB, Dosing Weight 59.091, kg, Daily, Start date: 06/28/15 9:00:00, Duration: 30 day, Stop date: 07/27/15 9:00:00 No Longer Active 06/28/2015 [facility] Zofran 4 mg, 2 mL, Route: IV, Drug form: INJ, Q8H, Dosing Weight 59.091, kg, PRN Nausea, Start date: 06/28/15 4:25:00, Duration: 30 day, Stop date: 07/28/15 4:24:00Notes: (Same as: Zofran) MEDICATION WASTE Product Size: 4 mg Product Wasted: ___ mg Inactive 06/28/2015 [facility] Ceftriaxone 1 gm, Route: IVPB, [id number], Dosing Weight 59.091, kg, Start date: 06/28/15 4:00:00, Duration: 30 day, Stop date: 07/27/15 4:00:00Notes: (Same As: Rocephin). Use with 100ml NS mini-bag PLUS and infuse o simon 30 min MEDICATION WASTE Product Size: 1000 mg Product Wasted: ___ mg No Longer Active 06/28/2015 [facility] Sodium Chloride 0.154 MEQ/ML Injectable Solution 1,000 mL, Rate: 100 ml/hr, Infuse over: 10 hr, Route: IV, Dosing Weight 59.091 kg, Total Volume: 1,000, Start date: 06/28/15 3:07:00, Duration: 30 day, Stop date: 07/28/15 3:06:00 No Longer Active 06/28/2015 [facility] Saline Flush 0.9% 10 ml, Route: IVP, Drug Form: INJ, Dosing Weight 59.091, kg, PRN, PRN Line Flush, Start date: 06/28/15 3:07:00, Duration: 30 day, Stop date: 07/28/15 2:06:00Notes: (Same as: BD Posiflush) No Longer Active 06/28/2015 [facility] Morphine 4 mg, Route: IVP, ONCE, Dosing Weight 59.091, kg, Priority: STAT, Start date: 03/06/15 2:22:00, Stop date: 03/06/15 2:22:00 Inactive 03/06/2015 [facility] Diphenhydramine 25 mg, Route: IVP, ONCE, Dosing Weight 59.091, kg, Priority: STAT, Start date: 03/06/15 2:09:00, Stop date: 03/06/15 2:09:00 Inactive 03/06/2015 [facility] Diphenhydramine 25 mg, Route: IVP, ONCE, Dosing Weight 59.091, kg, Priority: STAT, Start date: 03/06/15 2:08:00, Stop date: 03/06/15 2:08:00 Inactive 03/06/2015 [facility] methylPREDNISolone SODium SUCCinate 125 mg, Route: IVP, ONCE, Dosing Weight 59.091, kg, Priority: STAT, Start date: 03/06/15 2:08:00, Stop date: 03/06/15 2:08:00 Inactive 03/06/2015 [facility] Ondansetron 4 mg, 2 mL, Route: IVP, Drug form: INJ, ONCE, Dosing Weight 59.091, kg, Priority: STAT, Start date: 03/05/15 23:51:00, Stop date: 03/05/15 23:51:00Notes: (Same as: Zofran) MEDICATION WASTE Product Size: 4 mg Product Wasted: ___ mg No Longer Active 03/06/2015 [facility] Morphine 4 mg, 2 mL, Route: IVP, Drug form: INJ, ONCE, Dosing Weight 59.091, kg, Priority: STAT, Start date: 03/05/15 23:51:00, Stop date: 03/05/15 23:51:00Notes: (Same as:MORPhine Sulfate) No Longer Active 03/06/2015 [facility] Amitriptyline 25 mg, 1 tab, Route: PO, Drug form: TAB, Bedtime, Dosing Weight 59.091, kg, Start date: 01/27/15 21:00:00, Duration: 30 day, Stop date: 02/25/15 21:00:00Notes: (Same as: Elavil) Inactive 01/28/2015 [facility] gabapentin 300 MG Oral Capsule 300 mg, 1 cap, Route: PO, BID, Dosing Weight 59.091, kg, Start date: 01/27/15 17:00:00, Duration: 30 day, Stop date: 02/26/15 9:00:00 Inactive 01/27/2015 [facility] 24 HR tramadol hydrochloride 100 MG Extended Release Tablet 100 mg=1 tab, PO, Daily, PRN pain, # 30 tab, 0 Refill(s) Active 01/27/2015 [facility] tizanidine 4 mg oral tablet 4 mg=1 tab, PO, Q8H, PRN Other -See Comment | back pain, # 30 tab, 0 Refill(s) Active 01/27/2015 [facility] LORazepam 0.5 mg oral tablet 0.5 mg=1 tab, PO, Q8H, PRN Agitation, # 30 tab, 0 Refill(s) Inactive 01/27/2015 [facility] gabapentin 300 MG Oral Capsule 300 mg=1 cap, PO, BID, # 60 cap, 0 Refill(s) Active 01/27/2015 [facility] amitriptyline 25 mg oral tablet 25 mg=1 tab, PO, Bedtime, # 30 tab, 0 Refill(s) Active 01/27/2015 [facility] Promethazine Hydrochloride 25 MG Oral Tablet [Phenergan] 25 mg=1 tab, PO, Q6H, PRN Nausea, X 4 day, # 15 tab, 0 Refill(s) Active 01/27/2015 [facility] tizanidine 4 mg, 1 tab, Route: PO, Drug form: TAB, Q8H, Dosing Weight 59.091, kg, PRN Other -See Comment, Start date: 01/27/15 9:26:00, Duration: 30 day, Stop date: 02/26/15 9:25:00, back painNotes: (Same As: Z anaflex) Inactive 01/27/2015 [facility] Morphine 2 mg, 1 mL, Route: IVP, Drug form: INJ, Q4H, Dosing Weight 59.091, kg, PRN Pain Score 7-10, Start date: 01/27/15 9:25:00, Duration: 30 day, Stop date: 02/26/15 9:24:00Notes: (Same as:MORPhine Sulfate) Inactive 01/27/2015 [facility] gabapentin 300 MG Oral Capsule 300 mg, 1 cap, Route: PO, Drug form: CAP, BID, Dosing Weight 59.091, kg, Priority: NOW, Start date: 01/27/15 9:24:00, Duration: 30 day, Stop date: 02/26/15 9:00:00Notes: (Same as: Neurontin) Inactive 01/27/2015 [facility] Acetaminophen 325 mg, Route: PO, Q4H, Dosing Weight 59.091, kg, Start date: 01/26/15 20:00:00, Duration: 30 day, Stop date: 02/25/15 16:00:00 Inactive 01/27/2015 [facility] Acetaminophen 300 MG / butalbital 50 MG / Caffeine 40 MG Oral Capsule [Fioricet] 1 tab, Route: PO, Drug Form: TAB, Dosing Weight 59.091, kg, Q6H, PRN Headache 1-5, Start date: 01/26/15 10:47:00, Duration: 30 day, Stop date: 02/25/15 10:46:00Notes: (lxukhorhrtrbr-onshbhzzec-ylhgjqji 325-50-40mg) Do not exceed 4 gm/day of acetaminophen. (Same as: Esgic, Fioricet) No Longer Active 01/26/2015 [facility] methylPREDNISolone SODium SUCCinate 125 mg, 2 mL, Route: IV, Drug form: INJ, ONCE, Dosing Weight 59.091, kg, Priority: NOW, Start date: 01/26/15 10:47:00, Stop date: 01/26/15 10:47:00Notes: (Same as:Solu-MEDROL, A- Methapred) Inactive 01/26/2015 [facility] Phenergan 12.5 mg, 0.5 mL, Route: IVPB, Q8H, Dosing Weight 59.091, kg, PRN Nausea, Priority: NOW, Start date: 01/26/15 10:47:00, Duration: 30 day, Stop date: 02/25/15 10:46:00Notes: Do not give IV push. (Same as: Phenergan) No Longer Active 01/26/2015 [facility] ketOROLAC 30 mg/mL injectable solution 30 mg, 1 mL, Route: IV, Drug form: INJ, Q6H, Dosing Weight 59.091, kg, PRN Pain Score 4-6, Priority: NOW, Start date: 01/26/15 10:47:00, Duration: 4 day, Stop date: 01/30/15 10:46:00Notes: (Same as:Toradol) IV bolus must be given >15 seconds. Give IM administration slowly and deeply into the muscle. Not for use > 4 days MEDICATION WASTE Product Size: 30 mg Product Wasted: ___ mg No Longer Active 01/26/2015 [facility] Morphine 2 mg, 1 mL, Route: IVP, Drug form: INJ, Q2H, Dosing Weight 59.091, kg, PRN Pain Score 7-10, Start date: 01/26/15 9:53:00, Duration: 30 day, Stop date: 02/25/15 9:52:00Notes: (Same as:MORPhine Sulfate) No Longer Active 01/26/2015 [facility] Acetaminophen 650 mg, 2 tab, Route: PO, Drug form: TAB, Q4H, Dosing Weight 59.091, kg, PRN For Temp > 100.4 F, Start date: 01/26/15 9:51:00, Duration: 30 day, Stop date: 02/25/15 9:50:00Notes: Do not exceed 4 gm/day. (Same as: Tylenol) No Longer Active 01/26/2015 [facility] Milk of Magnesia 30 mL, Route: PO, Drug Form: SUSP, Dosing Weight 59.091, kg, Q3H, PRN Constipation, Start date: 01/26/15 9:51:00, Duration: 2 doses or times, Stop date: Limited # of timesNotes: (Same as: Milk of Magnesia, MOM) No Longer Active 01/26/2015 [facility] Temazepam 15 mg, 1 cap, Route: PO, Drug form: CAP, Bedtime, Dosing Weight 59.091, kg, PRN Insomnia, Start date: 01/26/15 9:51:00, Duration: 30 day, Stop date: 02/25/15 9:50:00Notes: (Same As: Restoril) No Longer Active 01/26/2015 [facility] Lorazepam 0.5 mg, 1 tab, Route: PO, Drug form: TAB, Q8H, Dosing Weight 59.091, kg, PRN Agitation, Start date: 01/26/15 9:51:00, Duration: 30 day, Stop date: 02/25/15 9:50:00Notes: (Same as: Ativan) No Longer Active 01/26/2015 [facility] Dextromethorphan Hydrobromide 2 MG/ML / Guaifenesin 20 MG/ML Oral Solution 10 mL, Route: PO, Drug Form: SYRP, Dosing Weight 59.091, kg, Q4H, PRN Cough, Start date: 01/26/15 9:51:00, Duration: 30 day, Stop date: 02/25/15 9:50:00Notes: (dextromethorphan-guaifenesin 10-100mg/5ml 10 ml oral SOLN ud) (Same as: Robitussin DM) No Longer Active 01/26/2015 [facility] Simethicone 80 mg, 1 tab, Route: PO, Drug form: CHEWTAB, Q6H, Dosing Weight 59.091, kg, PRN Gas, Start date: 01/26/15 9:51:00, Duration: 2 doses or times, Stop date: Limited # of timesNotes: (Same as: Mylicon) No Longer Active 01/26/2015 [facility] Al hydroxide/Mg hydroxide/simethicone 200 mg-200 mg-20 mg/5 mL oral suspension 30 mL, Route: PO, Drug Form: SUSP, Dosing Weight 59.091, kg, Q4H, PRN Indigestion, Start date: 01/26/15 9:51:00, Duration: 30 day, Stop date: 02/25/15 9:50:00Notes: (aluminum hydroxide-magnesium hyd-simethicone 102-578-66ke/5ml 30 ml ud WES) No Longer Active 01/26/2015 [facility] Bisacodyl 10 mg, 1 supp, Route: MD, Drug form: SUPP, Daily, Dosing Weight 59.091, kg, PRN Constipation, Start date: 01/26/15 9:51:00, Duration: 30 day, Stop date: 02/25/15 9:50:00Notes: (Same As: Dulcolax, Bisco- Lax) No Longer Active 01/26/2015 [facility] Prednisone 20 mg, 1 tab, Route: PO, Drug form: TAB, TID, Dosing Weight 59.818, kg, Start date: 01/26/15 9:00:00, Duration: 30 day, Stop date: 02/24/15 17:00:00Notes: Take with food. No Longer Active 01/26/2015 [facility] Acetaminophen 0 Refill(s) Active 01/26/2015 [facility] Saline Flush 0.9% 10 ml, Route: IVP, Drug Form: INJ, Dosing Weight 59.818, kg, PRN, PRN Line Flush, Start date: 01/25/15 18:34:00, Duration: 30 day, Stop date: 02/24/15 18:33:00Notes: (Same as: BD Posiflush) No Longer Active 01/25/2015 [facility] Morphine 2 mg, 1 mL, Route: IVP, Drug form: INJ, Q4H, Dosing Weight 59.818, kg, PRN Pain Score 4-6, Start date: 01/25/15 18:34:00, Duration: 30 day, Stop date: 02/24/15 18:33:00Notes: (Same as:MORPhine Sulfate) No Longer Active 01/25/2015 [facility] Tylenol 650 mg, 2 tab, Route: PO, Drug form: TAB, Q6H, Dosing Weight 59.818, kg, PRN Pain 1-3/Temp > 100.4 F, Start date: 01/25/15 18:34:00, Duration: 30 day, Stop date: 02/24/15 18:33:00Notes: Do not exceed 4 gm/day. (Same as: Tylenol) No Longer Active 01/25/2015 [facility] Valproic Acid 100 MG/ML Injectable Solution 1 gm, 10 mL, Route: IVPB, Drug form: INJ, ONCE, Dosing Weight 59.818, kg, Start date: 01/25/15 18:34:00, Stop date: 01/25/15 18:34:00Notes: Dilute in at least 50ml D5W or NS. Infusion rate=20 mg/min (Same As: Depacon) Inactive 01/25/2015 [facility] Ondansetron 4 mg, 2 mL, Route: IVP, Drug form: INJ, Q8H, Dosing Weight 59.818, kg, PRN Nausea & Vomiting, Start date: 01/25/15 18:34:00, Duration: 30 day, Stop date: 02/24/15 18:33:00Notes: (Same as: Chio) MEDICATION WASTE Product Size: 4 mg Product Wasted: ___ mg No Longer Active 01/25/2015 [facility] Sodium Chloride 0.154 MEQ/ML Injectable Solution 1,000 mL, Rate: 100 ml/hr, Infuse over: 10 hr, Route: IV, Dosing Weight 59.818 kg, Total Volume: 1,000, Start date: 01/25/15 18:34:00, Duration: 30 day, Stop date: 02/24/15 18:33:00 No Longer Active 01/25/2015 [facility] ropivacaine Dosing: Per Nerve Block Dosing Order, Route: NERVE BLOCK, Start date: 08/25/14 19:23:00 400 mL, Dosing Weight 59.818, kg, Duration: 30 day, Stop date: 09/24/14 19:22:00 Inactive 08/26/2014 [facility] Ketorolac 30 mg, Route: IVP, Q6H, Dosing Weight 58.182, kg, Start date: 08/25/14 18:00:00, Duration: 6 doses or times, Stop date: 08/27/14 0:00:00 Inactive 08/26/2014 [facility] Diphenhydramine 12.5 mg, Route: IVP, ONCE, Dosing Weight 59.818, kg, PRN Itching, Start date: 08/25/14 17:09:00 Inactive 08/25/2014 [facility] Acetaminophen 325 MG / Hydrocodone Bitartrate 5 MG Oral Tablet [[place] 5/325] 1 tab, Route: PO, Drug Form: TAB, Dosing Weight 58.182, kg, Q4H, PRN Pain, Start date: 08/25/14 16:18:00, Duration: 30 day, Stop date: 09/24/14 16:17:00 Inactive 08/25/2014 [facility] Ondansetron 4 mg, Route: IVP, ONCE, Dosing Weight 59.818, kg, PRN Nausea & Vomiting, Start date: 08/25/14 16:18:00 Inactive 08/25/2014 [facility] Meperidine 12.5 mg, Route: IVP, Q30Min, Dosing Weight 59.818, kg, PRN Other -See Comment, For shivering, Start date: 08/25/14 16:18:00, Duration: 2 doses or times, Stop date: Limited # of times Inactive 08/25/2014 [facility] Hydromorphone 0.5 mg, Route: IVP, Q5Min, Dosing Weight 59.818, kg, PRN Pain Score 7-10, Start date: 08/25/14 16:18:00, Duration: 4 doses or times, Stop date: Limited # of times Inactive 08/25/2014 [facility] Naloxone 0.04 mg, Route: IVP, Q2MIN, Dosing Weight 59.818, kg, PRN Narcotic Reversal, Start date: 08/25/14 16:18:00, Duration: 8 doses or times, Stop date: Limited # of times Inactive 08/25/2014 [facility] Flumazenil 0.2 mg, Route: IVP, PRN, Dosing Weight 59.818, kg, PRN Benzodiazepine Reversal, Initial dose, Start date: 08/25/14 16:18:00, Duration: 30 day, Stop date: 09/24/14 16:17:00 Inactive 08/25/2014 [facility] Acetaminophen 1,000 mg, Route: IVPB, Drug form: INJ, ONCE, Dosing Weight 59.818, kg, PRN Pain Score 1-3, Start date: 08/25/14 16:18:00, Duration: 1 doses or times, Stop date: Limited # of times Inactive 08/25/2014 [facility] Fentanyl 25 microgram, Route: IVP, Q5Min, Dosing Weight 59.818, kg, PRN Pain Score 4-6, Start date: 08/25/14 16:18:00, Duration: 4 doses or times, Stop date: Limited # of times Inactive 08/25/2014 [facility] Hydromorphone 0.5 mg, Route: IVP, Q3H, Dosing Weight 58.182, kg, PRN Pain Score 4-6, Start date: 08/25/14 15:56:00, Duration: 30 day, Stop date: 09/24/14 15:55:00 Inactive 08/25/2014 [facility] Acetaminophen 325 MG / Hydrocodone Bitartrate 10 MG Oral Tablet 1 tab, Route: PO, Dosing Weight 59.818, kg, Q4H, PRN Pain Score 4-6, Start date: 08/25/14 15:56:00, Duration: 30 day, Stop date: 09/24/14 15:55:00 Inactive 08/25/2014 [facility] Acetaminophen 650 mg, Route: PO, Drug form: TAB, Q4H, Dosing Weight 59.818, kg, PRN Pain 1-3/Temp > 100.4 F, Start date: 08/25/14 15:56:00, Duration: 30 day, Stop date: 09/24/14 15:55:00 Inactive 08/25/2014 [facility] Tramadol 50 mg, Route: PO, Drug form: TAB, Q6H, Dosing Weight 59.818, kg, PRN Pain Score 1-3, Start date: 08/25/14 15:56:00, Duration: 30 day, Stop date: 09/24/14 15:55:00 Inactive 08/25/2014 [facility] Ancef 1 gm, 100 mL, Route: IVPB, Drug form: INJ, ONCE, Dosing Weight 59.818, kg, Start date: 08/25/14 13:22:00, Stop date: 08/25/14 13:22:00 Inactive 08/25/2014 [facility] Calcium Chloride 0.0014 MEQ/ML / Potassium Chloride 0.004 MEQ/ML / Sodium Chloride 0.103 MEQ/ML / Sodium Lactate 0.028 MEQ/ML Injectable Solution 1,000 mL, Rate: 25 ml/hr, Infuse over: 40 hr, Route: IV, Dosing Weight 59.818 kg, Total Volume: 1,000, Start date: 08/25/14 13:18:00, Duration: 30 day, Stop date: 09/24/14 13:17:00 Inactive 08/25/2014 [facility] Zofran 4 mg, Route: IVP, Drug form: INJ, ONCE, Dosing Weight 59.818, kg, Start date: 08/25/14 13:06:00, Stop date: 08/25/14 13:06:00 Inactive 08/25/2014 [facility] Etonogestrel 68 MG Drug Implant [Implanon] 68 mg, SUB-Q, ONCE, # 1 ea, 0 Refill(s) Active 08/25/2014 [facility] Zolpidem tartrate 10 MG Oral Tablet [Ambien] 10 mg=1 tab, PO, Bedtime, for sleep, # 30 tab, 0 Refill(s) Inactive 08/25/2014 [facility] Cephalexin 500 MG Oral Capsule [Keflex] 500 mg=1 cap, PO, QID, # 40 cap, 0 Refill(s) Inactive 08/25/2014 [facility] tramadol hydrochloride 50 MG Oral Tablet [Ultram] 1 - 2 tabs, PO, Q4-6H, as needed for pain, # 30 tab, 0 Refill(s) Active 06/26/2014 [facility] Ondansetron 4 MG Disintegrating Tablet [Zofran] 4 mg=1 tab, PO, TID, as needed for nausea/vomiting, (allow tablet to dissolve on tongue), # 10 tab, 0 Refill(s)Special Instructions: (allow tablet to dissolve on tongue) Active 06/26/2014 [facility] lansoprazole 15 MG Enteric Coated Capsule [Prevacid] 15 mg=1 cap, PO, Daily, # 30 cap, 0 Refill(s) Active 06/26/2014 [facility] Levsin 0.25 mg, Route: IV, ONCE, Dosing Weight 58.182, kg, Start date: 06/25/14 18:46:00, Stop date: 06/25/14 18:46:00 Inactive 06/25/2014 [facility] Dilaudid 0.5 mg, Route: IVP, ONCE, Dosing Weight 58.182, kg, Priority: STAT, Start date: 06/25/14 16:22:00, Stop date: 06/25/14 16:22:00 Inactive 06/25/2014 [facility] Morphine 4 mg, Route: IVP, ONCE, Dosing Weight 58.182, kg, Start date: 06/25/14 16:20:00, Stop date: 06/25/14 16:20:00 Inactive 06/25/2014 [facility] Zofran 4 mg, Route: IVP, ONCE, Dosing Weight 58.182, kg, Start date: 06/25/14 16:20:00, Stop date: 06/25/14 16:20:00 Inactive 06/25/2014 [facility] GI cocktail 30 mL, Route: PO, Dosing Weight 58.182, kg, ONCE, Start date: 06/25/14 15:34:00, Stop date: 06/25/14 15:34:00 Inactive 06/25/2014 [facility] Morphine 4 mg, Route: IVP, ONCE, Dosing Weight 58.182, kg, Start date: 06/25/14 14:37:00, Stop date: 06/25/14 14:37:00 Inactive 06/25/2014 [facility] Zofran 4 mg, Route: IVP, ONCE, Dosing Weight 58.182, kg, Start date: 06/25/14 14:37:00, Stop date: 06/25/14 14:37:00 Inactive 06/25/2014 [facility] Sodium Chloride 0.154 MEQ/ML Injectable Solution 1,000 mL, 1,000 ml/hr, Infuse Over: 1 hr, Route: IV, ONCE, Priority: STAT, Dosing Weight 58.182 kg, Start date: 06/25/14 14:37:00, Duration: 1 doses or times, Stop date: 06/25/14 14:37:00 Inactive 06/25/2014 [facility] Metronidazole 500 MG Oral Tablet 500 mg=1 tab, PO, Q12H, # 14 tab, 0 Refill(s) Active 04/17/2014 [facility] ferrous sulfate 325 mg oral enteric coated tablet 325 mg=1 tab, PO, Daily, # 30 tab, 0 Refill(s) Active 04/17/2014 [facility] ferrous sulfate 325 mg, 1 tab, Route: PO, Drug form: ECTAB, Daily, Dosing Weight 55.455, kg, Start date: 04/17/14 9:00:00, Duration: 30 day, Stop date: 05/16/14 9:00:00Notes: Give with food. "Do Not Crush" No Longer Active 04/17/2014 [facility] Protonix 40 mg, 1 tab, Route: PO, Drug form: ECTAB, Before Breakfast, Start date: 04/17/14 7:30:00, Duration: 30 day, Stop date: 05/16/14 7:30:00Notes: Tablet should not be chewed or crushed. (Same as: Protonix) No Longer Active 04/17/2014 [facility] Flagyl 500 mg, 1 tab, Route: PO, Drug form: TAB, Q12H, Dosing Weight 55.455, kg, Start date: 04/16/14 23:00:00, Duration: 30 day, Stop date: 05/16/14 21:00:00Notes: (Same as: Flagyl) Take with food/ avoid alcohol No Longer Active 04/17/2014 [facility] Acetaminophen 325 MG / Hydrocodone Bitartrate 5 MG Oral Tablet [[place] 5/325] 1 tab, Route: PO, Drug Form: TAB, Dosing Weight 55.455, kg, Q6H, Start date: 04/16/14 22:00:00, Stop date: 05/16/14 5:30:00Notes: (Same as: [place] 325/5) Do not exceed 4gm/day of acetaminophen. No Longer Active 04/17/2014 [facility] Ativan 0.5 mg, 1 tab, Route: PO, Drug form: TAB, TID, Dosing Weight 55.455, kg, PRN Anxiety, Start date: 04/16/14 14:13:00, Duration: 30 day, Stop date: 05/16/14 14:12:00Notes: (Same as: Ativan) No Longer Active 04/16/2014 [facility] Protonix 40 mg, Route: IVP, Drug form: INJ, Daily, Dosing Weight 55.455, kg, Patient is NPO, Priority: NOW, Start date: 04/15/14 12:16:00, Duration: 30 day, Stop date: 05/15/14 9:00:00Notes: For IV push recon stitute with 10 ml 0.9% sodium chloride and push over 2 minutes. (Same as: Protonix) No Longer Active 04/15/2014 [facility] Morphine 4 mg, 2 mL, Route: IVP, Drug form: INJ, ONCE, Dosing Weight 55.455, kg, Start date: 04/15/14 11:59:00, Stop date: 04/15/14 11:59:00Notes: (Same as:MORPhine Sulfate) Inactive 04/15/2014 [facility] Benadryl 25 mg, 1 tab, Route: PO, Drug form: TAB, QID, Dosing Weight 58.182, kg, PRN as needed for itching, Start date: 04/15/14 0:05:00, Duration: 30 day, Stop date: 05/15/14 0:04:00 No Longer Active 04/15/2014 [facility] Ativan 0.5 mg, 0.25 mL, Route: IVP, Drug form: INJ, Q6H, Dosing Weight 58.182, kg, PRN Agitation, Start date: 04/14/14 16:04:00, Duration: 30 day, Stop date: 05/14/14 16:03:00, Pediatric DosingSpecial Instruct ions: Pediatric DosingNotes: (Same as: Ativan) No Longer Active 04/14/2014 [facility] Flagyl 500 mg, 100 mL, Route: IVPB, Drug form: INJ, [id number], Dosing Weight 58.182, kg, Start date: 04/14/14 13:00:00, Duration: 30 day, Stop date: 05/14/14 1:00:00Notes: (Same as: Flagyl) Avoid alcohol. No Longer Active 04/14/2014 [facility] Cipro 400 mg, 200 mL, Route: IVPB, Drug form: INJ, [id number], Dosing Weight 58.182, kg, Start date: 04/14/14 12:00:00, Duration: 30 day, Stop date: 05/14/14 0:00:00Notes: Do not refrigerate No Longer Active 04/14/2014 [facility] Zosyn 3.375 gm, 100 mL, Route: IVPB, Drug form: PDR/INJ, [id number], Dosing Weight 55.727, kg, Priority: Routine, Start date: 04/13/14 22:00:00, Duration: 30 day, Stop date: 05/13/14 14:00:00Notes: (Same as: Zosyn) Infuse over 4 hours. Activate and reconstitute before use. Dosing based on Piperacillin component No Longer Active 04/14/2014 [facility] Saline Flush 0.9% 5 ml, Route: IVP, Drug Form: INJ, Dosing Weight 55.727, kg, PRN, PRN Line Flush, Start date: 04/13/14 21:44:00, Duration: 30 day, Stop date: 05/13/14 21:43:00Notes: (Same as: BD Posiflush) No Longer Active 04/14/2014 [facility] Sodium Chloride 0.154 MEQ/ML Injectable Solution 1,000 mL, Rate: 125 ml/hr, Infuse over: 8 hr, Route: IV, Dosing Weight 55.727 kg, Total Volume: 1,000, Start date: 04/13/14 21:44:00, Duration: 30 day, Stop date: 05/13/14 21:43:00 No Longer Active 04/14/2014 [facility] Ondansetron 4 mg, 2 mL, Route: IVP, Drug form: INJ, Q8H, Dosing Weight 55.727, kg, PRN Nausea & Vomiting, Start date: 04/13/14 21:44:00, Duration: 30 day, Stop date: 05/13/14 21:43:00Notes: (Same as: Zofran) No Longer Active 04/14/2014 [facility] Morphine 1 mg, Route: IVP, Drug form: INJ, Q3H, Dosing Weight 55.727, kg, PRN Pain Score 7-10, Start date: 04/13/14 21:44:00, Duration: 30 day, Stop date: 05/13/14 21:43:00Notes: (Same as:MORPhine Sulfate) No Longer Active 04/14/2014 [facility] Zithromax 1,000 mg, Route: PO, Drug form: PCKT, ONCE, Dosing Weight 55.727, kg, Start date: 04/13/14 21:40:00, Stop date: 04/13/14 21:40:00 Inactive 04/14/2014 [facility] Sodium Chloride 0.154 MEQ/ML Injectable Solution 1,000 mL, 1,000 ml/hr, Infuse Over: 1 hr, Route: IV, 1,000, Drug form: INJ, ONCE, Priority: STAT, Dosing Weight 55.727 kg, Start date: 04/13/14 21:27:00, Duration: 1 doses or times, Stop date: 04/13/14 21:27:00 Inactive 04/14/2014 [facility] Morphine 4 mg, Route: IVP, Drug form: INJ, ONCE, Dosing Weight 55.727, kg, Priority: STAT, Start date: 04/13/14 20:52:00, Stop date: 04/13/14 20:52:00 Inactive 04/14/2014 [facility] Sodium Chloride 0.154 MEQ/ML Injectable Solution 1,000 mL, 1,000 ml/hr, Infuse Over: 1 hr, Route: IV, ONCE, Priority: STAT, Dosing Weight 55.727 kg, Start date: 04/13/14 20:08:00, Duration: 1 doses or times, Stop date: 04/13/14 20:08:00 Inactive 04/14/2014 [facility] Rocephin 1 gm, Route: IVPB, Drug form: PDR/INJ, ONCE, Dosing Weight 55.727, kg, Priority: STAT, Start date: 04/13/14 20:08:00, Stop date: 04/13/14 20:08:00 Inactive 04/14/2014 [facility] Phenergan 25 mg, Route: IVPB, ONCE, Dosing Weight 55.727, kg, Priority: STAT, Start date: 04/13/14 20:08:00, Stop date: 04/13/14 20:08:00 Inactive 04/14/2014 [facility] Morphine 4 mg, Route: IVP, Drug form: INJ, ONCE, Dosing Weight 55.727, kg, Priority: STAT, Start date: 04/13/14 19:20:00, Stop date: 04/13/14 19:20:00 Inactive 04/14/2014 [facility] Sodium Chloride 0.154 MEQ/ML Injectable Solution 1,000 mL, 1,000 ml/hr, Infuse Over: 1 hr, Route: IV, ONCE, Priority: STAT, Dosing Weight 55.727 kg, Start date: 04/13/14 16:48:00, Duration: 1 doses or times, Stop date: 04/13/14 16:48:00 Inactive 04/13/2014 [facility] Ondansetron 4 mg, Route: IVP, Drug form: INJ, ONCE, Dosing Weight 55.727, kg, Priority: STAT, Start date: 04/13/14 16:45:00, Stop date: 04/13/14 16:45:00 Inactive 04/13/2014 [facility] Morphine 4 mg, Route: IVP, Drug form: INJ, ONCE, Dosing Weight 55.727, kg, Priority: STAT, Start date: 04/13/14 16:45:00, Stop date: 04/13/14 16:45:00 Inactive 04/13/2014 [facility] Diphenhydramine 25 mg, Route: IVP, ONCE, Dosing Weight 55.727, kg, Priority: STAT, Start date: 04/13/14 16:42:00, Stop date: 04/13/14 16:42:00 Inactive 04/13/2014 [facility] Dexamethasone 12 mg, Route: IV, ONCE, Dosing Weight 55.727, kg, Priority: STAT, Start date: 04/13/14 16:42:00, Stop date: 04/13/14 16:42:00 Inactive 04/13/2014 [facility] Cefuroxime 500 MG Oral Tablet [Ceftin] 500 mg, 1 tab, Route: PO, Drug form: TAB, [id number], Dosing Weight 59.091, kg, Start date: 11/21/13 18:00:00, Duration: 7 day, Stop date: 11/28/13 6:00:00With food. (Same As: Ceftin) Inactive 11/22/2013 [facility] Ciprofloxacin 500 mg, 1 tab, Route: PO, Drug form: TAB, [id number], Dosing Weight 59.091, kg, Start date: 11/21/13 14:00:00, Duration: 7 day, Stop date: 11/28/13 2:00:00May interfere w/enteral feedings - Take 1 hr before or 2 hrs after antacids, dairy pdt & minerals. On empty stomach. Inactive 11/21/2013 [facility] ciprofloxacin 500 mg oral tablet 500 mg=1 tab, PO, [id number], # 14 tab, 0 Refill(s) Active 11/21/2013 [facility] Guaifenesin 20 MG/ML Oral Solution 200 mg=10 mL, PO, Q6H, Cough, # 120 mL, 0 Refill(s) Active 11/21/2013 [facility] Cefuroxime 500 MG Oral Tablet [Ceftin] 500 mg=1 tab, PO, [id number], # 14 tab, 0 Refill(s) Active 11/21/2013 [facility] Acetaminophen 325 MG / Hydrocodone Bitartrate 5 MG Oral Tablet 1 tab, PO, Q4H, Pain Score 1-3, # 20 tab, 0 Refill(s) Active 11/21/2013 [facility] Robitussin 200 mg, 10 mL, Route: PO, Drug form: LIQ, Q6H, PRN Cough, Start date: 11/21/13 0:58:00, Duration: 30 day, Stop date: 12/21/13 0:57:00(Same as: Robitussin) Inactive 11/21/2013 [facility] Prochlorperazine 5 mg, 1 mL, Route: IV, Drug form: INJ, Q4H, Dosing Weight 59.091, kg, Start date: 11/20/13 16:00:00, Duration: 30 day, Stop date: 12/20/13 12:00:00(Same as: Compazine) No Longer Active 11/20/2013 [facility] topiramate 100 mg, 1 tab, Route: PO, Drug form: TAB, Daily, Dosing Weight 59.091, kg, Start date: 11/20/13 9:00:00, Duration: 30 day, Stop date: 12/19/13 9:00:00(Same As: Topamax) "Do Not Crush" No Longer Active 11/20/2013 [facility] Ceftriaxone 1 gm, Route: IVPB, [id number], Dosing Weight 59.091, kg, Start date: 11/20/13 5:30:00, Duration: 30 day, Stop date: 12/19/13 5:30:00(Same As: Rocephin). Use with 100ml NS mini-bag PLUS and infuse over 30 min No Longer Active 11/20/2013 [facility] Phenergan 25 mg, 1 supp, Route: MD, Drug form: SUPP, Q6H, PRN Nausea, Start date: 11/19/13 22:52:00, Duration: 30 day, Stop date: 12/19/13 22:51:00(Same as: Phenergan) No Longer Active 11/20/2013 [facility] morphine Sulfate 4 mg, 2 mL, Route: IV, Drug form: INJ, Q2H, PRN Pain Score 6-10, Start date: 11/19/13 22:52:00, Duration: 30 day, Stop date: 12/19/13 22:51:00(Same as:MORPhine Sulfate) No Longer Active 11/20/2013 [facility] Amitriptyline 25 mg, 1 tab, Route: PO, Drug form: TAB, Bedtime, Dosing Weight 59.091, kg, Start date: 11/19/13 21:00:00, Duration: 30 day, Stop date: 12/18/13 21:00:00(Same as: Elavil) No Longer Active 11/20/2013 [facility] Depacon 1,000 mg, 10 mL, Route: IVPB, Drug form: INJ, ONCE, Dosing Weight 59.091, kg, Start date: 11/19/13 18:49:00, Stop date: 11/19/13 18:49:00Dilute in at least 50ml D5W or NS. Infusion rate=20 mg/min (Same As: Depacon) Inactive 11/20/2013 [facility] Tamiflu 75 mg, 1 cap, Route: PO, Drug form: CAP, BID, Dosing Weight 59.091, kg, Start date: 11/19/13 17:00:00, Duration: 5 day, Stop date: 11/24/13 9:00:00Take with food. Same as: Tamiflu) Inactive 11/19/2013 [facility] Prevacid 15 mg, Route: PO, Drug form: ECCAP, BID, Dosing Weight 59.091, kg, Start date: 11/19/13 17:00:00, Duration: 30 day, Stop date: 12/19/13 9:00:00 Inactive 11/19/2013 [facility] Protonix 40 mg, 1 tab, Route: PO, Drug form: ECTAB, Before Dinner, Start date: 11/19/13 16:30:00, Duration: 30 day, Stop date: 12/18/13 16:30:00Tablet should not be chewed or crushed. (Same as: Protonix) No Longer Active 11/19/2013 [facility] Tamiflu 75 mg, 1 cap, Route: PO, Drug form: CAP, [id number], Dosing Weight 59.091, kg, Start date: 11/19/13 15:00:00, Duration: 10 doses or times, Stop date: 11/24/13 3:00:00Take with food. Same as: Tamiflu) No Longer Active 11/19/2013 [facility] potassium phosphate + Sodium Chloride 0.9% IV 243.33 mL 20 mmol, 6.67 mL, Route: IV, ONCE, Start date: 11/19/13 13:00:00, Stop date: 11/19/13 13:00:00(Same as: K Phosphate.) 1 mMol phoshate has 1.47 mEq potassium Infuse over 4 hours Inactive 11/19/2013 [facility] Ketorolac Tromethamine 15 MG/ML Injectable Solution 15 mg, 1 mL, Route: IV, Drug form: INJ, Q6H, Dosing Weight 59.091, kg, Start date: 11/19/13 12:00:00, Duration: 1 day, Stop date: 11/20/13 6:00:00(Same as:Toradol) IV bolus must be given >15 seconds. Give IM administration slowly and deeply into the muscle. Not for use > 4 days. No Longer Active 11/19/2013 [facility] potassium chloride 20 mEq, 100 mL, Route: IVPB, Drug form: INJ, Q2H, Start date: 11/19/13 12:00:00, Duration: 2 doses or times, Stop date: 11/19/13 14:00:00(Same as: KCL) Infuse no faster than 10 mEq/hr if given perip herally. Inactive 11/19/2013 [facility] Potassium Chloride 40 mEq, 30 mL, Route: PO, Drug form: LIQ, ONCE, Dosing Weight 59.091, kg, Start date: 11/19/13 8:58:00, Stop date: 11/19/13 8:58:00(Same as: Potassium Chloride) Inactive 11/19/2013 [facility] Neutra-Phos 2 pkt, Route: PO, Drug Form: PDR/REC, Dosing Weight 59.091, kg, ONCE, Start date: 11/19/13 8:57:00, Stop date: 11/19/13 8:57:00(Same as: Neutra-Phos) Each 1.25 gm pkt has 250mg phosphorous. Mix w/2. 5oz water and stir. Inactive 11/19/2013 [facility] topiramate 25 mg oral tablet 100 mg=4 tab, PO, Daily, 0 Refill(s) Active 11/19/2013 [facility] Acetaminophen 325 MG / Hydrocodone Bitartrate 5 MG Oral Tablet [[place] 5/325] 1 tab, PO, Q4H, as needed for pain, 0 Refill(s) Active 11/19/2013 [facility] Oseltamivir 75 MG Oral Capsule [Tamiflu] 75 mg=1 cap, PO, BID, 0 Refill(s) No Longer Active 11/19/2013 [facility] vancomycin 1.5 gm, 250 mL, Route: IVPB, Drug form: INJ, [id number], Start date: 11/19/13 0:00:00, Duration: 30 day, Stop date: 12/18/13 12:00:00Same as: Vancocin-NS (premixed) Inactive 11/19/2013 [facility] Rocephin 2 gm, Route: IVPB, [id number], Dosing Weight 60, kg, Start date: 11/18/13 21:00:00, Duration: 30 day, Stop date: 12/18/13 5:00:00(Same As: Rocephin). No Longer Active 11/19/2013 [facility] Acetaminophen 650 mg, 2 tab, Route: PO, Drug form: TAB, Q4H, Dosing Weight 60, kg, PRN Pain 1-3/Temp > 100.4 F, Start date: 11/18/13 16:34:00, Duration: 30 day, Stop date: 12/18/13 16:33:00Do not exceed 4 gm/day. (Same as: Tylenol) No Longer Active 11/18/2013 [facility] Sodium Chloride 0.154 MEQ/ML Injectable Solution 1,000 mL, Rate: 100 ml/hr, Infuse over: 10 hr, Route: IV, Dosing Weight 60 kg, Total Volume: 1,000, Start date: 11/18/13 16:34:00, Duration: 30 day, Stop date: 12/18/13 16:33:00 No Longer Active 11/18/2013 [facility] Saline Flush 0.9% 5 ml, Route: IVP, Drug Form: INJ, Dosing Weight 60, kg, PRN, PRN Line Flush, Start date: 11/18/13 16:34:00, Duration: 30 day, Stop date: 12/18/13 17:33:00Same as: BD Posiflush Sterile No Longer Active 11/18/2013 [facility] Acetaminophen 325 MG / Hydrocodone Bitartrate 5 MG Oral Tablet 1 tab, Route: PO, Drug Form: TAB, Dosing Weight 60, kg, Q4H, PRN Pain Score 1-3, Start date: 11/18/13 16:34:00, Duration: 30 day, Stop date: 12/18/13 16:33:00(Same as: [place] 325/5) Do not exceed 4gm/day of acetaminophen. No Longer Active 11/18/2013 [facility] Morphine 2 mg, 1 mL, Route: IVP, Drug form: INJ, Q3H, Dosing Weight 60, kg, PRN Pain Score 4-6, Start date: 11/18/13 16:34:00, Duration: 30 day, Stop date: 12/18/13 16:33:00(Same as:MORPhine Sulfate) No Longer Active 11/18/2013 [facility] Ondansetron 4 mg, 2 mL, Route: IVP, Drug form: INJ, Q8H, Dosing Weight 60, kg, PRN Nausea & Vomiting, Start date: 11/18/13 16:34:00, Duration: 30 day, Stop date: 12/18/13 16:33:00(Same as: Zofran) No Longer Active 11/18/2013 [facility] Docusate 100 mg, 1 cap, Route: PO, Drug form: CAP, BID, Dosing Weight 60, kg, PRN Constipation, Start date: 11/18/13 16:34:00, Duration: 30 day, Stop date: 12/18/13 16:33:00(Same as: Colace) (Do Not Crush) No Longer Active 11/18/2013 [facility] lansoprazole 15 MG Enteric Coated Capsule [Prevacid] 15 mg=1 cap, PO, BID, 0 Refill(s) Active 11/18/2013 [facility] amitriptyline 25 mg oral tablet 25 mg=1 tab, PO, Bedtime, 0 Refill(s) Active 11/18/2013 [facility] Sodium Chloride 0.9% (Bolus) IV 1000 mL 1,000 mL, Rate: 1,000 ml/hr, Infuse over: 1 hr, Route: IV, kg, Total Volume: 1,000, Bolus Dose, Priority: STAT, Start date: 08/16/12 8:49:00, Duration: 1 doses or times, Stop date: 08/16/12 9:48:00 IV No Longer Active [place] 08/16/2012 [facility] Benadryl 25 mg, Route: IVP, ONCE, Dosing Weight 60, kg, Priority: STAT, Start date: 08/16/12 6:26:00, Stop date: 08/16/12 6:26:00 IVP No Longer Active Cast 08/16/2012 [facility] Zofran ODT 4 mg, 1 tab, Route: PO, Drug form: TABDIS, ONCE, Dosing Weight 60, kg, Priority: STAT, Start date: 08/16/12 5:25:00, Stop date: 08/16/12 5:25:00 PO No Longer Active Cast 08/16/2012 [facility] normal saline 0.9% IV 1,000 mL 1,000 mL, Rate: 1,000 ml/hr, Infuse over: 1 hr, Route: IV, kg, Total Volume: 1,000, Start date: 08/16/12 4:52:00, Duration: 1 doses or times, Stop date: 08/16/12 5:51:00 IV No Longer Active Cast 08/16/2012 [facility] Reglan 10 mg, Route: IV, ONCE, Dosing Weight 60, kg, Start date: 08/16/12 4:51:00, Stop date: 08/16/12 4:51:00 IV No Longer Active Cast 08/16/2012 [facility] Benadryl 25 mg, 1 cap, Route: PO, Drug form: CAP, ONCE, Dosing Weight 60, kg, Priority: STAT, Start date: 08/16/12 4:31:00, Stop date: 08/16/12 4:31:00 PO No Longer Active Cast 08/16/2012 [facility] NS 1000 mL 1,000 mL, Rate: 100 ml/hr, Infuse over: 10 hr, Route: IV, kg, Total Volume: 1,000, Start date: 08/16/12 4:31:00, Duration: 30 day, Stop date: 09/15/12 4:30:00 IV No Longer Active [facility] 08/16/2012 [facility] Reglan 10 mg oral tablet 1 tab, Route: IV, ONCE, Dosing Weight 60, kg, Start date: 08/16/12 4:30:00, Stop date: 08/16/12 4:30:00 IV No Longer Active [facility] 08/16/2012 [facility] ketorolac Substitution Allowed Active 08/16/2012 [facility] promethazine Substitution Allowed Active 08/16/2012 [facility] Prevacid Substitution Allowed Active 08/16/2012 [facility] propranolol 10 mg oral tablet Substitution Allowed Active 08/16/2012 [facility] dicyclomine 20 mg oral tablet Substitution Allowed Active 08/16/2012 [facility] Flagyl 500 mg oral tablet 500 mg, 1 tab, PO, Q12H, 14 tab, Substitution Allowed PO No Longer Active [facility] 01/11/2012 [facility] doxycycline hyclate 100 mg oral capsule 100 mg, 1 cap, PO, Daily, 14 cap, Substitution Allowed PO No Longer Active [facility] 01/11/2012 [facility] ceftriaxone 250 mg, Route: IM, ONCE, Priority: STAT, Start date: 01/10/12 20:16:00, Stop date: 01/10/12 20:16:00 IM No Longer Active [facility] 01/11/2012 [facility] Sodium Chloride 0.9% (Bolus) IV 1000 mL 1,000 mL, Rate: 1,000 ml/hr, Infuse over: 1 hr, Route: IV, kg, Total Volume: 1,000, Bolus Dose, Priority: STAT, Start date: 01/10/12 19:23:00, Duration: 1 doses or times, Stop date: 01/10/12 20:22:00 IV No Longer Active [facility] 01/11/2012 [facility] droperidol 1.25 mg, 0.5 mL, Route: IV, Drug form: INJ, ONCE, Start date: 01/10/12 19:22:00, Stop date: 01/10/12 19:22:00 IV No Longer Active [facility] 01/11/2012 [facility] morphine Sulfate 4 mg, Route: IVP, ONCE, Pediatric dosing, Priority: STAT, Start date: 01/10/12 19:02:00, Stop date: 01/10/12 19:02:00 IVP No Longer Active [facility] 01/11/2012 [facility] Reglan 5 mg, Route: IVP, ONCE, Priority: STAT, Start date: 01/10/12 17:31:00, Stop date: 01/10/12 17:31:00 IVP No Longer Active [facility] 01/10/2012 [facility] Bentyl 10 mg oral capsule 10 mg, 1 cap, PO, QID, 56 cap, Substitution Allowed, CAP PO Active [facility] 12/20/2011 [facility] Reglan 5 mg, Route: IVP, ONCE, Priority: STAT, Start date: 12/19/11 21:05:00, Stop date: 12/19/11 21:05:00 IVP No Longer Active [facility] 12/20/2011 [facility] prochlorperazine 5 mg, Route: IVP, ONCE, Priority: STAT, Start date: 12/19/11 20:29:00, Stop date: 12/19/11 20:29:00 IVP No Longer Active [facility] 12/20/2011 [facility] Bentyl 20 mg, Route: PO, ONCE, Start date: 12/19/11 20:23:00, Stop date: 12/19/11 20:23:00 PO No Longer Active [facility] 12/20/2011 [facility] Lidocaine Viscous 2% mucous membrane solution 10 mL, Route: PO, ONCE, Start date: 12/19/11 20:22:00, Stop date: 12/19/11 20:22:00 PO No Longer Active [facility] 12/20/2011 [facility] Maalox 30 mL, Route: PO, ONCE, Start date: 12/19/11 20:22:00, Stop date: 12/19/11 20:22:00 PO No Longer Active [facility] 12/20/2011 [facility] Sodium Chloride 0.9% (Bolus) IV 1000 mL 1,000 mL, Rate: 1,000 ml/hr, Infuse over: 1 hr, Route: IV, kg, Total Volume: 1,000, Bolus Dose, Priority: STAT, Start date: 12/19/11 20:15:00, Duration: 1 doses or times, Stop date: 12/19/11 21:14:00 IV No Longer Active [facility] 12/20/2011 [facility] amitriptyline Substitution Allowed Active 12/20/2011 [facility] Vyvanse Substitution Allowed, Maintenance Active 12/20/2011 [facility] lansoprazole Substitution Allowed Active 12/20/2011 [facility] Florastor Substitution Allowed Active 12/20/2011 [facility] melatonin Substitution Allowed Active 12/20/2011 [facility] Carafate Substitution Allowed Active 12/20/2011 [facility] Allergies, Adverse Reactions, Alerts Substance Category Reaction Severity Reaction type Status Date Reported Comments Source Cipro Assertion Drug allergy Active [facility] contrast media (iodine-based) Assertion Drug allergy Active [facility] Immunizations Immunization Date Given Site Status Last Updated Comments Source Results Order Name Results Value Reference Range Date Interpretation Comments Source CHEM PANEL Phosphorus 2.9 mg/dL 2.5 - 4.5 08/05/2016 [facility] CHEM PANEL Globulin 3.1 g/dL 2.7 - 4.2 08/05/2016 [facility] CHEM PANEL A/G Ratio 1.0 0.7 - 1.6 08/05/2016 [facility] CHEM PANEL B/C Ratio 8 6 - 25 08/05/2016 [facility] CHEM PANEL AGAP 13.4 meq/L 10.0 - 20.0 08/05/2016 [facility] CHEM PANEL eGFR 118 mL/min/1.73m2 08/05/2016 Result Comment: The eGFR is calculated using the CKD-EPI formula. In most young, healthy individuals the eGFR will be >90 mL/min/1.73m2. The eGFR declines with age. An eGFR of 60-89 may be normal in some populations, particularly the elderly, for whom the CKD-EPI formula has not been extensively validated. Use of the eGFR is not recommended in the following populations: Individuals with unstable creatinine concentrations, including patients and those with serious co-morbid conditions. Patients with extremes in muscle mass or diet. The data above are obtained from the National Kidney Disease Education Program (NKDEP) which additionally recommends that when the eGFR is used in patients with extremes of body mass index for purposes of drug dosing, the eGFR should be multiplied by the estimated BMI. [facility] CHEM PANEL Albumin Lvl 3.2 g/dL 3.5 - 5.0 08/05/2016 [facility] CHEM PANEL ALT 21 unit/L 0 - 65 08/05/2016 [facility] CHEM PANEL AST 13 unit/L 0 - 37 08/05/2016 [facility] CHEM PANEL Bili Total 0.6 mg/dL 0.2 - 1.3 08/05/2016 [facility] CHEM PANEL Alk Phos 97 unit/L 39 - 136 08/05/2016 [facility] CHEM PANEL Chloride Lvl 112 meq/L 95 - 109 08/05/2016 [facility] CHEM PANEL CO2 20 meq/L 24 - 32 08/05/2016 [facility] CHEM PANEL Calcium Lvl 7.6 mg/dL 8.5 - 10.5 08/05/2016 [facility] CHEM PANEL Total Protein 6.3 g/dL 6.4 - 8.4 08/05/2016 [facility] CHEM PANEL Sodium Lvl 142 meq/L 135 - 145 08/05/2016 [facility] CHEM PANEL Potassium Lvl 3.4 meq/L 3.5 - 5.1 08/05/2016 [facility] CHEM PANEL Glucose Lvl 102 mg/dL 70 - 99 08/05/2016 [facility] CHEM PANEL BUN 6 mg/dL 7 - 22 08/05/2016 [facility] CHEM PANEL Creatinine Lvl 0.73 mg/dL 0.50 - 1.40 08/05/2016 [facility] CHEM PANEL Magnesium Lvl 2.0 mg/dL 1.8 - 2.4 08/05/2016 [facility] HEMATOLOGY Microcyte 1+ *ABN* (08/05/16 4:32 AM) None Seen 08/05/2016 [facility] HEMATOLOGY Eosinophils # 0.3 K/CMM 0.0 - 0.5 08/05/2016 [facility] HEMATOLOGY Lymphocytes # 3.0 K/CMM 1.0 - 5.5 08/05/2016 [facility] HEMATOLOGY Monocytes # 0.4 K/CMM 0.0 - 0.8 08/05/2016 [facility] HEMATOLOGY Segs-Bands # 3.1 K/CMM 1.5 - 8.1 08/05/2016 [facility] HEMATOLOGY Basophils 0.1 % 0.0 - 1.0 08/05/2016 [facility] HEMATOLOGY Eosinophils 4.0 % 0.0 - 4.0 08/05/2016 [facility] HEMATOLOGY Monocytes 6.2 % 2.0 - 12.0 08/05/2016 [facility] HEMATOLOGY Lymphocytes 44.1 % 20.0 - 40.0 08/05/2016 [facility] HEMATOLOGY Segs 45.6 % 45.0 - 75.0 08/05/2016 [facility] HEMATOLOGY MPV 7.0 fL 7.4 - 10.4 08/05/2016 [facility] HEMATOLOGY Platelet 361 K/CMM 133 - 450 08/05/2016 [facility] HEMATOLOGY Hct 32.7 % 36.0 - 48.0 08/05/2016 [facility] MCH 24.1 pg 27.0 - 31.0 08/05/2016 [facility] MCV 71.6 fL 80.0 - 98.0 08/05/2016 [facility] RDW 15.5 % 11.5 - 14.5 08/05/2016 [facility] MCHC 33.6 g/dL 32.0 - 36.0 08/05/2016 [facility] Hgb 11.0 g/dL 12.0 - 16.0 08/05/2016 [facility] WBC 6.8 K/CMM 3.7 - 10.4 08/05/2016 [facility] RBC 4.57 M/CMM 4.20 - 5.40 08/05/2016 [facility] Brain wo contrast CT Brain wo contrast CT Clinical Indication: Headache with Dizziness and Giddiness Pt c/o migraine x 1 month. Pt at [facility] ago but they worked up her CP and not MCCORMICK. Pt denies CP at this time. Also c/o nausea. Comparison: 01/26/2015 TECHNIQUE: CT images were obtained from the foramen magnum to the vertex without the use of intravenous contrast on a multidetector CT. Coronal and sagittal reconstructions were obtained. CT radiation dose DLP: 1009.89 mGy-cm FINDINGS: BRAIN PARENCHYMA: There are normal petersen-white interfaces, sulci and gyri. There are no focal mass lesions on this noncontrast head CT. There is no mass effect, midline shift or edema. There are no intra-axial or extra-axial fluid collections, intraventricular or intraparenchymal hemorrhage. The pineal, sellar, brainstem, cerebellum and skull base regions appear unremarkable. VENTRICLES: The lateral ventricles, third and fourth ventricles appear unremarkable. The basilar cisterns are normal. ORBITS, MASTOIDS AND PARANASAL SINUSES: The visualized orbits and paranasal sinuses are otherwise unremarkable. Slight opacification of the mastoid air cells bilaterally suggesting mastoiditis in the appropriate clinical setting. SKULL: There are no osseous abnormalities. If there is further concern for intracranial pathology or acute stroke, MRI of the brain may be performed for complete assessment. IMPRESSION: 1. Unremarkable noncontrast head CT with no CT evidence of a mass, hemorrhage, or subacute stroke. 2. Slight opacification of the mastoid air cells bilaterally suggesting mastoiditis in the appropriate clinical setting. SL: SROSENBLUM-PC 07/13/2016 - - Read by: Geremias Sandra DO Dictated Date/time: 07/13/16 01:53 Electronically Signed by: Geremias Sandra DO 07/13/16 01:56 FINAL REPORT [facility] URINE CHEM U Preg Negative (07/11/16 4:05 AM) Negative 07/11/2016 [facility] CARDIAC ENZYMES CK MB Index null 0.0 - 2.5 07/11/2016 [facility] CARDIAC ENZYMES Troponin-I null 0.00 - 0.40 07/11/2016 [facility] CARDIAC ENZYMES CK MB null 0.5 - 3.6 07/11/2016 [facility] CARDIAC ENZYMES Total CK 58 unit/L 12 - 191 07/11/2016 [facility] ELECTROLYTES CO2 24 meq/L 24 - 32 07/11/2016 [facility] ELECTROLYTES Calcium Lvl 8.4 mg/dL 8.5 - 10.5 07/11/2016 [facility] ELECTROLYTES eGFR 132 mL/min/1.73m2 07/11/2016 Result Comment: The eGFR is calculated using the CKD-EPI formula. In most young, healthy individuals the eGFR will be >90 mL/min/1.73m2. The eGFR declines with age. An eGFR of 60-89 may be normal in some populations, particularly the elderly, for whom the CKD-EPI formula has not been extensively validated. Use of the eGFR is not recommended in the following populations: Individuals with unstable creatinine concentrations, including patients and those with serious co-morbid conditions. Patients with extremes in muscle mass or diet. The data above are obtained from the National Kidney Disease Education Program (NKDEP) which additionally recommends that when the eGFR is used in patients with extremes of body mass index for purposes of drug dosing, the eGFR should be multiplied by the estimated BMI. [facility] ELECTROLYTES Creatinine Lvl 0.58 mg/dL 0.50 - 1.40 07/11/2016 [facility] ELECTROLYTES Sodium Lvl 139 meq/L 135 - 145 07/11/2016 [facility] ELECTROLYTES AGAP 13.3 meq/L 10.0 - 20.0 07/11/2016 [facility] ELECTROLYTES Chloride Lvl 105 meq/L 95 - 109 07/11/2016 [facility] ELECTROLYTES Potassium Lvl 3.3 meq/L 3.5 - 5.1 07/11/2016 [facility] ELECTROLYTES BUN 7 mg/dL 7 - 22 07/11/2016 [facility] ELECTROLYTES Glucose Lvl 107 mg/dL 70 - 99 07/11/2016 [facility] HEMATOLOGY Segs 34.5 % 45.0 - 75.0 07/11/2016 [facility] HEMATOLOGY Monocytes 10.2 % 2.0 - 12.0 07/11/2016 [facility] HEMATOLOGY Lymphocytes 52.9 % 20.0 - 40.0 07/11/2016 [facility] HEMATOLOGY Segs-Bands # 3.0 K/CMM 1.5 - 8.1 07/11/2016 [facility] HEMATOLOGY Basophils 0.4 % 0.0 - 1.0 07/11/2016 [facility] HEMATOLOGY Monocytes # 0.9 K/CMM 0.0 - 0.8 07/11/2016 [facility] HEMATOLOGY Lymphocytes # 4.7 K/CMM 1.0 - 5.5 07/11/2016 [facility] Microcyte 2+ *ABN* (07/11/16 2:48 AM) None Seen 07/11/2016 [facility] Eosinophils # 0.2 K/CMM 0.0 - 0.5 07/11/2016 [facility] Eosinophils 2.0 % 0.0 - 4.0 07/11/2016 [facility] RBC 4.80 M/CMM 4.20 - 5.40 07/11/2016 [facility] Hgb 11.5 g/dL 12.0 - 16.0 07/11/2016 [facility] Hct 33.9 % 36.0 - 48.0 07/11/2016 [facility] WBC 8.8 K/CMM 3.7 - 10.4 07/11/2016 [facility] MCV 70.7 fL 80.0 - 98.0 07/11/2016 [facility] Platelet 372 K/CMM 133 - 450 07/11/2016 [facility] RDW 16.5 % 11.5 - 14.5 07/11/2016 [facility] MPV 6.7 fL 7.4 - 10.4 07/11/2016 [facility] MCH 23.9 pg 27.0 - 31.0 07/11/2016 [facility] MCHC 33.9 g/dL 32.0 - 36.0 07/11/2016 [facility] Chest 2 views DX Chest 2 views DX Chest, 2 views dated 07/11/2016. HISTORY: Chest pain. Comparison is made to a prior study dated 06/25/2014. The heart is normal in size. The cardiomediastinal shadow is stable. The lungs are clear. The pulmonary vasculature appears normal in caliber. No pleural space abnormalities are identified. IMPRESSION: 1. No radiographic evidence of acute cardiopulmonary disease. SL: 131 07/11/2016 - - Read by: Brian Dubose MD Dictated Date/time: 07/11/16 02:25 Electronically Signed by: Brian Dubose MD 07/11/16 02:26 FINAL REPORT [facility] CHEM PANEL A/G Ratio 0.8 0.7 - 1.6 06/29/2015 [facility] CHEM PANEL Globulin 3.7 g/dL 2.0 - 4.0 06/29/2015 [facility] CHEM PANEL B/C Ratio 4 6 - 25 06/29/2015 [facility] CHEM PANEL Chloride Lvl 108 meq/L 95 - 109 06/29/2015 [facility] CHEM PANEL Sodium Lvl 137 meq/L 135 - 145 06/29/2015 [facility] CHEM PANEL Potassium Lvl 3.4 meq/L 3.5 - 5.1 06/29/2015 [facility] CHEM PANEL AGAP 11.4 meq/L 10.0 - 20.0 06/29/2015 [facility] CHEM PANEL eGFR 125 mL/min/1.73m2 06/29/2015 Result Comment: The eGFR is calculated using the CKD-EPI formula. In most young, healthy individuals the eGFR will be >90 mL/min/1.73m2. The eGFR declines with age. An eGFR of 60-89 may be normal in some populations, particularly the elderly, for whom the CKD-EPI formula has not been extensively validated. Use of the eGFR is not recommended in the following populations: Individuals with unstable creatinine concentrations, including patients and those with serious co-morbid conditions. Patients with extremes in muscle mass or diet. The data above are obtained from the National Kidney Disease Education Program (NKDEP) which additionally recommends that when the eGFR is used in patients with extremes of body mass index for purposes of drug dosing, the eGFR should be multiplied by the estimated BMI. [facility] CHEM PANEL Creatinine Lvl 0.7 mg/dL 0.5 - 1.4 06/29/2015 [facility] CHEM PANEL BUN 3 mg/dL 7 - 22 06/29/2015 [facility] CHEM PANEL Calcium Lvl 8.1 mg/dL 8.5 - 10.5 06/29/2015 [facility] CHEM PANEL CO2 21 meq/L 24 - 32 06/29/2015 [facility] CHEM PANEL Glucose Lvl 86 mg/dL 70 - 99 06/29/2015 [facility] CHEM PANEL Total Protein 6.5 g/dL 6.4 - 8.4 06/29/2015 [facility] CHEM PANEL Bili Total 0.5 mg/dL 0.2 - 1.3 06/29/2015 [facility] CHEM PANEL Albumin Lvl 2.8 g/dL 3.5 - 5.0 06/29/2015 [facility] CHEM PANEL AST 9 unit/L 0 - 37 06/29/2015 [facility] CHEM PANEL ALT 18 unit/L 0 - 65 06/29/2015 [facility] CHEM PANEL Alk Phos 74 unit/L 39 - 136 06/29/2015 [facility] ELECTROLYTES AGAP 11.4 meq/L 10.0 - 20.0 06/29/2015 [facility] ELECTROLYTES Chloride Lvl 108 meq/L 95 - 109 06/29/2015 [facility] ELECTROLYTES Potassium Lvl 3.4 meq/L 3.5 - 5.1 06/29/2015 [facility] ELECTROLYTES Sodium Lvl 137 meq/L 135 - 145 06/29/2015 [facility] ELECTROLYTES eGFR 125 mL/min/1.73m2 06/29/2015 Result Comment: The eGFR is calculated using the CKD-EPI formula. In most young, healthy individuals the eGFR will be >90 mL/min/1.73m2. The eGFR declines with age. An eGFR of 60-89 may be normal in some populations, particularly the elderly, for whom the CKD-EPI formula has not been extensively validated. Use of the eGFR is not recommended in the following populations: Individuals with unstable creatinine concentrations, including patients and those with serious co-morbid conditions. Patients with extremes in muscle mass or diet. The data above are obtained from the National Kidney Disease Education Program (NKDEP) which additionally recommends that when the eGFR is used in patients with extremes of body mass index for purposes of drug dosing, the eGFR should be multiplied by the estimated BMI. [facility] ELECTROLYTES Calcium Lvl 8.1 mg/dL 8.5 - 10.5 06/29/2015 [facility] ELECTROLYTES CO2 21 meq/L 24 - 32 06/29/2015 [facility] ELECTROLYTES Creatinine Lvl 0.7 mg/dL 0.5 - 1.4 06/29/2015 [facility] ELECTROLYTES Glucose Lvl 86 mg/dL 70 - 99 06/29/2015 [facility] ELECTROLYTES BUN 3 mg/dL 7 - 22 06/29/2015 [facility] HEMATOLOGY Platelet 315 K/CMM 133 - 450 06/29/2015 [facility] HEMATOLOGY MPV 7.2 fL 7.4 - 10.4 06/29/2015 [facility] HEMATOLOGY RDW 15.4 % 11.5 - 14.5 06/29/2015 [facility] HEMATOLOGY MCHC 32.0 g/dL 32.0 - 36.0 06/29/2015 [facility] HEMATOLOGY WBC 9.3 K/CMM 3.7 - 10.4 06/29/2015 [facility] HEMATOLOGY RBC 4.45 M/CMM 4.20 - 5.40 06/29/2015 [facility] HEMATOLOGY MCH 23.4 pg 27.0 - 31.0 06/29/2015 [facility] HEMATOLOGY MCV 73.1 fL 80.0 - 98.0 06/29/2015 [facility] HEMATOLOGY Hct 32.6 % 36.0 - 48.0 06/29/2015 [facility] HEMATOLOGY Hgb 10.4 g/dL 12.0 - 16.0 06/29/2015 [facility] HEMATOLOGY Monocytes # 0.8 K/CMM 0.0 - 0.8 06/29/2015 [facility] HEMATOLOGY Lymphocytes # 2.8 K/CMM 1.0 - 5.5 06/29/2015 [facility] HEMATOLOGY Microcyte 1+ *ABN* (06/29/15 5:04 AM) None Seen 06/29/2015 [facility] HEMATOLOGY Basophils # 0.1 K/CMM 0.0 - 0.2 06/29/2015 [facility] HEMATOLOGY Eosinophils # 0.2 K/CMM 0.0 - 0.5 06/29/2015 [facility] HEMATOLOGY Segs-Bands # 5.5 K/CMM 1.5 - 8.1 06/29/2015 [facility] HEMATOLOGY Basophils 0.9 % 0.0 - 1.0 06/29/2015 [facility] HEMATOLOGY Eosinophils 2.1 % 0.0 - 4.0 06/29/2015 [facility] HEMATOLOGY Monocytes 8.5 % 2.0 - 12.0 06/29/2015 [facility] HEMATOLOGY Lymphocytes 29.8 % 20.0 - 40.0 06/29/2015 [facility] HEMATOLOGY Segs 58.7 % 45.0 - 75.0 06/29/2015 [facility] URINE AND STOOL UA Urobilinogen <=1.0 mg/dL 0.1 - 1.0 06/29/2015 [facility] URINE AND STOOL UA Color Ltyellow 06/29/2015 [facility] URINE AND STOOL UA Spec Grav 1.010 <=1.030 06/29/2015 [facility] URINE AND STOOL UA pH 7.0 5.0 - 8.0 06/29/2015 [facility] URINE AND STOOL UA Protein Negative mg/dL Negative mg/dL 06/29/2015 [facility] URINE AND STOOL UA Glucose Negative mg/dL Negative mg/dL 06/29/2015 [facility] URINE AND STOOL UA RBC null 0 - 2 06/29/2015 [facility] URINE AND STOOL UA Blood Negative (06/28/15 7:39 PM) Negative 06/29/2015 [facility] URINE AND STOOL UA Nitrite Negative (06/28/15 7:39 PM) Negative 06/29/2015 [facility] URINE AND STOOL UA Leuk Est Negative (06/28/15 7:39 PM) Negative 06/29/2015 [facility] URINE AND STOOL UA Sq Epi Occasional /LPF Few /LPF 06/29/2015 [facility] URINE AND STOOL UA WBC 4 /HPF 0 - 5 06/29/2015 [facility] URINE AND STOOL UA Ketones Trace mg/dL Negative mg/dL 06/29/2015 [facility] URINE AND STOOL UA Bili Negative *NA* (06/28/15 7:39 PM) Negative 06/29/2015 [facility] URINE AND STOOL UA Turbidity Clear (06/28/15 7:39 PM) Clear 06/29/2015 [facility] URINE CHEM U Preg Positive *ABN* (06/28/15 7:39 PM) Negative 06/29/2015 [facility] ENDOCRINOLOGY S Preg Positive *NA* (06/28/15 5:34 AM) Negative 06/28/2015 [facility] ENDOCRINOLOGY hCG Tot 428 mIU/mL 06/28/2015 [facility] Preg < 14wks Single gest w Transvag US Preg < 14wks Single gest w Transvag US PROCEDURE: Preg < 14wks Single Gest w/OB Transvag INDICATION: Nausea TRANSABDOMINAL ULTRASOUND: The uterus measures 7.9 x 2.8 x 3.9 cm. The cervix is closed. No definite intrauterine fluid collection identified on the transabdominal study. No embryo or cardiac motion identified. No yolk sac identified. There is no evidence of subchorionic hemorrhage. TRANSVAGINAL ULTRASOUND: The transvaginal images demonstrated tiny fluid collection in the upper central portion of the uterine cavity. The endometrium is thickened, measuring 1.8 cm in width. No intrauterine free fluid is identified. There is no evidence of fluid in the cul-de-sac The right ovary measures 1.1 x 0.7 x 0.6 cm. The left ovary measures 2.7 x 1.5 x 1.6 cm. The left ovary is not visualized on the transvaginal examination. There is a small amount of fluid in the cul-de-sac. IMPRESSION: 1. Tiny fluid collection in the uterine fundus may represent early intrauterine gestation. Further observation recommended. 2. A small amount of free fluid in the cul-de-sac. SL: 12 06/28/2015 - - Read by: Felice Christine MD Dictated Date/time: 06/28/15 15:37 Electronically Signed by: Felice Christine MD 06/28/15 15:47 FINAL REPORT [facility] CHEM PANEL Lipase Lvl 147 unit/L 73 - 393 03/06/2015 [facility] CHEM PANEL A/G Ratio 0.9 0.7 - 1.6 03/06/2015 [facility] CHEM PANEL Globulin 4.2 g/dL 2.0 - 4.0 03/06/2015 [facility] CHEM PANEL B/C Ratio 10 6 - 25 03/06/2015 [facility] CHEM PANEL AGAP 11.4 meq/L 10.0 - 20.0 03/06/2015 [facility] CHEM PANEL Bili Total 0.2 mg/dL 0.2 - 1.3 03/06/2015 [facility] CHEM PANEL Alk Phos 116 unit/L 39 - 136 03/06/2015 [facility] CHEM PANEL AST 26 unit/L 0 - 37 03/06/2015 [facility] CHEM PANEL ALT 44 unit/L 0 - 65 03/06/2015 [facility] CHEM PANEL Glucose Lvl 126 mg/dL 70 - 99 03/06/2015 2Interpretive Data: Adult reference range values reflect the clinical guidelines of the [place] [employer]. [facility] CHEM PANEL CO2 25 meq/L 24 - 32 03/06/2015 [facility] CHEM PANEL BUN 7 mg/dL 7 - 22 03/06/2015 [facility] CHEM PANEL Albumin Lvl 3.6 g/dL 3.5 - 5.0 03/06/2015 [facility] CHEM PANEL Total Protein 7.8 g/dL 6.4 - 8.4 03/06/2015 [facility] CHEM PANEL eGFR 125 mL/min/1.73m2 03/06/2015 1Result Comment: The eGFR is calculated using the CKD-EPI formula. In most young, healthy individuals the eGFR will be >90 mL/min/1.73m2. The eGFR declines with age. An eGFR of 60-89 may be normal in some populations, particularly the elderly, for whom the CKD-EPI formula has not been extensively validated. Use of the eGFR is not recommended in the following populations: Individuals with unstable creatinine concentrations, including patients and those with serious co-morbid conditions. Patients with extremes in muscle mass or diet. The data above are obtained from the National Kidney Disease Education Program (NKDEP) which additionally recommends that when the eGFR is used in patients with extremes of body mass index for purposes of drug dosing, the eGFR should be multiplied by the estimated BMI. [facility] CHEM PANEL Creatinine Lvl 0.7 mg/dL 0.5 - 1.4 03/06/2015 [facility] CHEM PANEL Sodium Lvl 141 meq/L 135 - 145 03/06/2015 [facility] CHEM PANEL Potassium Lvl 3.4 meq/L 3.5 - 5.1 03/06/2015 [facility] CHEM PANEL Chloride Lvl 108 meq/L 95 - 109 03/06/2015 [facility] CHEM PANEL Calcium Lvl 8.8 mg/dL 8.5 - 10.5 03/06/2015 [facility] PTT 31.2 s 22.9 - 35.8 03/06/2015 4Interpretive Data: Heparin Therapeutic Range: 57 - 92 Seconds [facility] HEMATOLOGY INR 1.06 0.85 - 1.17 03/06/2015 3Interpretive Data: RECOMMENDED RANGES FOR PROTIME INR: 2.0-3.0 for most medical and surgical thromboembolic states. 2.5-3.5 for artificial heart valves and recurrent embolism. INR SHOULD BE USED ONLY FOR PATIENTS ON STABLE ANTICOAGULANT THERAPY. [facility] HEMATOLOGY PT 13.8 s 12.0 - 14.7 03/06/2015 [facility] WBC 10.3 K/CMM 3.7 - 10.4 03/06/2015 [facility] MCHC 32.2 g/dL 32.0 - 36.0 03/06/2015 [facility] HEMATOLOGY RDW 15.3 % 11.5 - 14.5 03/06/2015 [facility] HEMATOLOGY Platelet 387 K/CMM 133 - 450 03/06/2015 [facility] HEMATOLOGY MPV 7.3 fL 7.4 - 10.4 03/06/2015 [facility] HEMATOLOGY RBC 4.98 M/CMM 4.20 - 5.40 03/06/2015 [facility] Hgb 11.5 g/dL 12.0 - 16.0 03/06/2015 [facility] Hct 35.8 % 36.0 - 48.0 03/06/2015 [facility] HEMATOLOGY MCV 71.9 fL 80.0 - 98.0 03/06/2015 [facility] MCH 23.2 pg 27.0 - 31.0 03/06/2015 [facility] Segs-Bands # 4.9 K/CMM 1.5 - 8.1 03/06/2015 [facility] Lymphocytes # 4.1 K/CMM 1.0 - 5.5 03/06/2015 [facility] Monocytes # 1.0 K/CMM 0.0 - 0.8 03/06/2015 [facility] HEMATOLOGY Eosinophils # 0.2 K/CMM 0.0 - 0.5 03/06/2015 [facility] Basophils # 0.1 K/CMM 0.0 - 0.2 03/06/2015 [facility] Microcyte 1+ *ABN* (03/06/15 12:20 AM) None Seen 03/06/2015 [facility] Lymphocytes 40.0 % 20.0 - 40.0 03/06/2015 [facility] Monocytes 10.1 % 2.0 - 12.0 03/06/2015 [facility] HEMATOLOGY Eosinophils 1.9 % 0.0 - 4.0 03/06/2015 [facility] Basophils 0.6 % 0.0 - 1.0 03/06/2015 [facility] Segs 47.4 % 45.0 - 75.0 03/06/2015 [facility] URINE AND STOOL UA Urobilinogen <=1.0 mg/dL 0.1 - 1.0 03/06/2015 [facility] URINE AND STOOL UA Sq Epi Moderate /LPF Few /LPF 03/06/2015 [facility] URINE AND STOOL UA RBC 3 /HPF 0 - 2 03/06/2015 [facility] URINE AND STOOL UA Mucus Few /LPF None Seen /LPF 03/06/2015 [facility] URINE AND STOOL UA Leuk Est Negative (03/06/15 12:13 AM) Negative 03/06/2015 [facility] URINE AND STOOL UA Nitrite Negative (03/06/15 12:13 AM) Negative 03/06/2015 [facility] URINE AND STOOL UA Bili Negative *NA* (03/06/15 12:13 AM) Negative 03/06/2015 [facility] URINE AND STOOL UA Blood Negative (03/06/15 12:13 AM) Negative 03/06/2015 [facility] URINE AND STOOL UA Protein Negative mg/dL Negative mg/dL 03/06/2015 [facility] URINE AND STOOL UA Glucose Negative mg/dL Negative mg/dL 03/06/2015 [facility] URINE AND STOOL UA pH 7.0 5.0 - 8.0 03/06/2015 [facility] URINE AND STOOL UA Turbidity Marked *ABN* (03/06/15 12:13 AM) Clear 03/06/2015 [facility] URINE AND STOOL UA Ketones Negative mg/dL Negative mg/dL 03/06/2015 [facility] URINE AND STOOL UA Spec Grav 1.018 <=1.030 03/06/2015 [facility] URINE AND STOOL UA Color Yellow *NA* (03/06/15 12:13 AM) Yellow 03/06/2015 [facility] URINE CHEM U Preg Negative (03/06/15 12:13 AM) Negative 03/06/2015 [facility] Abdomen/Pelvis w IV contrast CT Abdomen/Pelvis w IV contrast CT EXAM: CT abdomen and pelvis HISTORY: Abdominal pain, suspect appendicitis. COMPARISON: CT 04/15/2014. TECHNIQUE: Axial images obtained through the abdomen and pelvis with IV contrast. Sagittal and coronal reformations obtained. FINDINGS: Abdomen and pelvis: 1. Normal appendix. 2. Fatty liver. 3. The spleen, kidneys, adrenals, gallbladder and pancreas are unremarkable. Nonspecific bowel pattern. Bladder is unremarkable. No mass, bulky adenopathy or free fluid. Lung bases are clear. Aorta is normal caliber. Bones are intact. SL: 12 03/06/2015 - - Read by: Saurabh Bird MD Dictated Date/time: 03/06/15 03:41 Electronically Signed by: Saurabh Bird MD 03/06/15 03:49 FINAL REPORT [facility] Pelvis w Transvag and Pelvis Doppler US Pelvis w Transvag and Pelvis Doppler US EXAM: Pelvic ultrasound HISTORY: Abdominal pain, possible ovarian torsion. COMPARISON: CT 04/15/2014. TECHNIQUE: Transabdominal and transvaginal pelvic ultrasound with duplex Doppler FINDINGS: TRANSABDOMINAL PELVIC ULTRASOUND: Uterus is not well visualized. The ovaries are not visualized. Bladder underdistended. TRANSVAGINAL PELVIC ULTRASOUND: Exam performed to better evaluate the ovaries and endometrium. Uterus measures 5.7 cm length. Endometrial stripe measures 0.2 cm thickness. Nabothian cysts in the cervix. The ovaries are visualized with color and spectral flow present. No adnexal mass or significant free fluid is seen. IMPRESSION: No ovarian torsion is seen. SL: 12 03/06/2015 - - Read by: Saurabh Bird MD Dictated Date/time: 03/06/15 01:22 Electronically Signed by: Saurabh Bird MD 03/06/15 01:25 FINAL REPORT [facility] Ankle 2 views bilateral DX Ankle 2 views bilateral DX BILATERAL ANKLES. LEFT ANKLE, portable 2 Views HISTORY: Left ankle pain. TECHNIQUE: Frontal and lateral views of the left ankle were obtained. FINDINGS: The soft tissues are unremarkable. The ankle mortise is well maintained. There is no evidence of fracture, dislocation, or other osteoarticular abnormality. CONCLUSION: 1. Negative left ankle. RIGHT ANKLE, portable 2 views HISTORY: Right ankle pain. TECHNIQUE: Frontal and lateral views of the right ankle were obtained. FINDINGS: The soft tissues are unremarkable. The ankle mortise is well maintained. There is no evidence of fracture, dislocation, or other osteoarticular abnormality. CONCLUSION: 1. Negative right ankle. SL: 16 Prince Javier M.D. 01/26/2015 - - Read by: Prince Javier MD Dictated Date/time: 01/26/15 16:47 Electronically Signed by: Prince Javier MD 01/26/15 16:51 FINAL REPORT [facility] ELECTROLYTES CO2 28 meq/L 24 - 32 01/26/2015 [facility] ELECTROLYTES BUN 6 mg/dL 7 - 22 01/26/2015 [facility] ELECTROLYTES Glucose Lvl 151 mg/dL 70 - 99 01/26/2015 2Interpretive Data: Adult reference range values reflect the clinical guidelines of the [place] [employer]. [facility] ELECTROLYTES eGFR 106 mL/min/1.73m2 01/26/2015 1Result Comment: The eGFR is calculated using the CKD-EPI formula. In most young, healthy individuals the eGFR will be >90 mL/min/1.73m2. The eGFR declines with age. An eGFR of 60-89 may be normal in some populations, particularly the elderly, for whom the CKD-EPI formula has not been extensively validated. Use of the eGFR is not recommended in the following populations: Individuals with unstable creatinine concentrations, including patients and those with serious co-morbid conditions. Patients with extremes in muscle mass or diet. The data above are obtained from the National Kidney Disease Education Program (NKDEP) which additionally recommends that when the eGFR is used in patients with extremes of body mass index for purposes of drug dosing, the eGFR should be multiplied by the estimated BMI. [facility] ELECTROLYTES Creatinine Lvl 0.8 mg/dL 0.5 - 1.4 01/26/2015 [facility] ELECTROLYTES Sodium Lvl 141 meq/L 135 - 145 01/26/2015 [facility] ELECTROLYTES Potassium Lvl 3.6 meq/L 3.5 - 5.1 01/26/2015 [facility] ELECTROLYTES Calcium Lvl 8.1 mg/dL 8.5 - 10.5 01/26/2015 [facility] ELECTROLYTES Chloride Lvl 106 meq/L 95 - 109 01/26/2015 [facility] ELECTROLYTES AGAP 10.6 meq/L 10.0 - 20.0 01/26/2015 [facility] Eosinophils 1.8 % 0.0 - 4.0 01/26/2015 [facility] Segs 54.2 % 45.0 - 75.0 01/26/2015 [facility] Microcyte 1+ *ABN* (01/26/15 10:22 AM) None Seen 01/26/2015 [facility] Segs-Bands # 4.4 K/CMM 1.5 - 8.1 01/26/2015 [facility] HEMATOLOGY Eosinophils # 0.1 K/CMM 0.0 - 0.5 01/26/2015 [facility] HEMATOLOGY Monocytes # 0.8 K/CMM 0.0 - 0.8 01/26/2015 [facility] HEMATOLOGY Lymphocytes # 2.8 K/CMM 1.0 - 5.5 01/26/2015 [facility] Basophils 0.4 % 0.0 - 1.0 01/26/2015 [facility] HEMATOLOGY Monocytes 9.4 % 2.0 - 12.0 01/26/2015 [facility] Lymphocytes 34.2 % 20.0 - 40.0 01/26/2015 [facility] Platelet 289 K/CMM 133 - 450 01/26/2015 [facility] RDW 16.0 % 11.5 - 14.5 01/26/2015 [facility] MPV 7.0 fL 7.4 - 10.4 01/26/2015 [facility] Hgb 11.1 g/dL 12.0 - 16.0 01/26/2015 [facility] MCHC 32.7 g/dL 32.0 - 36.0 01/26/2015 [facility] MCH 23.7 pg 27.0 - 31.0 01/26/2015 [facility] MCV 72.6 fL 80.0 - 98.0 01/26/2015 [facility] Hct 34.0 % 36.0 - 48.0 01/26/2015 [facility] RBC 4.69 M/CMM 4.20 - 5.40 01/26/2015 [facility] WBC 8.1 K/CMM 3.7 - 10.4 01/26/2015 [facility] Brain wo contrast CT Brain wo contrast CT CT Head no contrast: COMPARISON: No priors CLINICAL HX: Lethargy, headache TECHNIQUE: Contiguous transaxial images of the brain were performed without administration of IV contrast. FINDINGS: There is no evidence for parenchymal bleed, extra-axial collections, intracranial masses or midline shift. No displaced fractures of the calvarium or other significant bony abnormality is noted. The petersen white matter differentiation is well preserved. No acute infarct is evident. The visualized paranasal sinuses and the mastoids are clear. IMPRESSION: No significant acute brain abnormality is noted. SL:13 01/26/2015 - - Read by: Beck Bains MD Dictated Date/time: 01/26/15 13:19 Electronically Signed by: Beck Bains MD 01/26/15 13:25 FINAL REPORT [facility] Segs 44.7 % 45.0 - 75.0 08/25/2014 [facility] Lymphocytes 44.3 % 20.0 - 40.0 08/25/2014 [facility] Monocytes 8.7 % 2.0 - 12.0 08/25/2014 [facility] Eosinophils 1.9 % 0.0 - 4.0 08/25/2014 [facility] Basophils 0.4 % 0.0 - 1.0 08/25/2014 [facility] Lymphocytes # 4.3 K/CMM 1.0 - 5.5 08/25/2014 [facility] Segs-Bands # 4.3 K/CMM 1.5 - 8.1 08/25/2014 [facility] Monocytes # 0.8 K/CMM 0.0 - 0.8 08/25/2014 [facility] Eosinophils # 0.2 K/CMM 0.0 - 0.5 08/25/2014 [facility] Microcyte 1+ *ABN* (08/25/14 7:20 AM) None Seen 08/25/2014 [facility] RDW 15.6 % 11.5 - 14.5 08/25/2014 [facility] Platelet 389 K/CMM 133 - 450 08/25/2014 [facility] MPV 7.4 fL 7.4 - 10.4 08/25/2014 [facility] Hgb 12.1 g/dL 12.0 - 16.0 08/25/2014 [facility] Hct 37.5 % 36.0 - 48.0 08/25/2014 [facility] MCV 72.5 fL 80.0 - 98.0 08/25/2014 [facility] MCH 23.3 pg 27.0 - 31.0 08/25/2014 [facility] MCHC 32.2 g/dL 32.0 - 36.0 08/25/2014 [facility] WBC 9.7 K/CMM 3.7 - 10.4 08/25/2014 [facility] RBC 5.18 M/CMM 4.20 - 5.40 08/25/2014 [facility] URINE CHEM U Preg Negative (08/25/14 7:20 AM) Negative 08/25/2014 [facility] URINE CHEM U Preg Negative (08/07/14 2:43 PM) Negative 08/07/2014 [facility] Wrist w contrast MRI Wrist w contrast MRI MR LEFT WRIST ARTHROGRAM HISTORY: Contusion of wrist, 18-year-old female reports wrist pain for several months after hyperextension injury. COMPARISON: Left wrist radiography dated 06/03/2014 and images obtained during left wrist injection dated 08/07/2014. FINDINGS: Fluid/inflammatory signal in the superficial dorsal soft tissues and within the third dorsal tendon extensor compartment is iatrogenic related to mild articular injection, as seen on fluoroscopic injection images. There is adequate opacification of the radiocarpal joint space. Contrast passes through a 1-2 mm central tear of the triangular fibrocartilage and fills the distal radioulnar joint. The styloid and foveal attachments of the triangular fibrocartilage are intact. Bone marrow signal throughout the wrist is normal. There is no fracture or bone contusion. There is no scapholunate or lunotriquetral ligament tear. The wrist cartilage is preserved. No arthritic change is identified. Tendons appear normal. No soft tissue ganglion is identified. IMPRESSION: 1. No fracture or bone contusion. 2. Central tear of the triangular fibrocartilage. 3. No chondromalacia or significant arthritic change. SL: 12 08/07/2014 - - Read by: Rik Florence MD Dictated Date/time: 08/08/14 15:37 Electronically Signed by: Rik Florence MD 08/08/14 15:45 FINAL REPORT [facility] Wrist arthrogram DX Wrist arthrogram DX LEFT WRIST ARTHROGRAM HISTORY: Left wrist injury, left wrist pain. TECHNIQUE: A generous portion of the dorsum of the wrist was prepped with Betadine and alcohol and draped. Utilizing frontal and lateral fluoroscopy, a 21-gauge needle was advanced into the radial carpal joint. Initially, a tiny amount of contrast was injected and the needle dislodge slightly with a minimal amount of extravasation. The needle was repositioned and approximately 0.5 cc of contrast material was injected demonstrating good position within the radiocarpal joint. At this point, approximately 2-3 cc of dilute gadolinium contrast was injected into the joint and the needle removed. The patient was then sent to the MRI scanner for MR arthrography of the wrist. The patient tolerated the procedure well and suffered no complications. The fluoroscopy time was 2 minutes and 6 seconds. SL: 12 Prince Javier M.D. 08/07/2014 - - Read by: Prince Javier MD Dictated Date/time: 08/10/14 08:45 Electronically Signed by: Prince Javier MD 08/10/14 08:49 FINAL REPORT [facility] URINE AND STOOL UA Urobilinogen <=1.0 mg/dL 0.1 - 1.0 06/25/2014 [facility] URINE AND STOOL UA Bacteria Occasional /HPF None Seen /HPF 06/25/2014 [facility] URINE AND STOOL UA Mucus Few /LPF None Seen /LPF 06/25/2014 [facility] URINE AND STOOL UA RBC null 0 - 2 06/25/2014 [facility] URINE AND STOOL UA WBC 3 /HPF 0 - 5 06/25/2014 [facility] URINE AND STOOL UA Nitrite Negative (06/25/14 3:00 PM) Negative 06/25/2014 [facility] URINE AND STOOL UA Leuk Est Small *ABN* (06/25/14 3:00 PM) Negative 06/25/2014 [facility] URINE AND STOOL UA Sq Epi Moderate /LPF Few /LPF 06/25/2014 [facility] URINE AND STOOL UA Bili Negative *NA* (06/25/14 3:00 PM) Negative 06/25/2014 [facility] URINE AND STOOL UA Turbidity Slight *ABN* (06/25/14 3:00 PM) Clear 06/25/2014 [facility] URINE AND STOOL UA Spec Grav 1.023 <=1.030 06/25/2014 [facility] URINE AND STOOL UA pH 6.0 5.0 - 8.0 06/25/2014 [facility] URINE AND STOOL UA Protein Negative mg/dL Negative mg/dL 06/25/2014 [facility] URINE AND STOOL UA Color Yellow *NA* (06/25/14 3:00 PM) Yellow 06/25/2014 [facility] URINE AND STOOL UA Blood Negative (06/25/14 3:00 PM) Negative 06/25/2014 [facility] URINE AND STOOL UA Glucose Negative mg/dL Negative mg/dL 06/25/2014 [facility] URINE AND STOOL UA Ketones Negative mg/dL Negative mg/dL 06/25/2014 [facility] URINE CHEM U Preg Negative (06/25/14 3:00 PM) Negative 06/25/2014 [facility] Abdomen acute series w chest 1 view DX Abdomen acute series w chest 1 view DX ABDOMINAL SERIES: SUPINE / UPRIGHT ABDOMEN / AP CHEST (3 VIEWS) HX: Abdominal pain, acute COMPARISON: 12/19/2011 ABDOMEN: Views of the abdomen reveal no evidence of pathologic distention of bowel or air-fluid level. No unusual calcifications are noted. The visualized osseous structures are normal. CHEST: An upright chest reveals no evidence of free air beneath the diaphragm. The lungs are clear and the mediastinal silhouette is normal. IMPRESSION: Negative abdominal series. SL: 12 06/25/2014 - - Read by: Felice Christine MD Dictated Date/time: 06/25/14 20:14 Electronically Signed by: Felice Christine MD 06/25/14 20:15 FINAL REPORT [facility] CHEM PANEL Lipase Lvl 173 unit/L 73 - 393 06/25/2014 [facility] CHEM PANEL A/G Ratio 1.0 0.7 - 1.6 06/25/2014 [facility] CHEM PANEL Globulin 3.9 g/dL 2.0 - 4.0 06/25/2014 [facility] CHEM PANEL B/C Ratio 18 6 - 25 06/25/2014 [facility] CHEM PANEL AGAP 9.4 meq/L 10.0 - 20.0 06/25/2014 [facility] CHEM PANEL eGFR 107 mL/min/1.73m2 06/25/2014 1Result Comment: The eGFR is calculated using the CKD-EPI formula. In most young, healthy individuals the eGFR will be >90 mL/min/1.73m2. The eGFR declines with age. An eGFR of 60-89 may be normal in some populations, particularly the elderly, for whom the CKD-EPI formula has not been extensively validated. Use of the eGFR is not recommended in the following populations: Individuals with unstable creatinine concentrations, including patients and those with serious co-morbid conditions. Patients with extremes in muscle mass or diet. The data above are obtained from the National Kidney Disease Education Program (NKDEP) which additionally recommends that when the eGFR is used in patients with extremes of body mass index for purposes of drug dosing, the eGFR should be multiplied by the estimated BMI. [facility] CHEM PANEL AST 18 unit/L 0 - 37 06/25/2014 [facility] CHEM PANEL ALT 20 unit/L 0 - 65 06/25/2014 [facility] CHEM PANEL Albumin Lvl 3.9 g/dL 3.5 - 5.0 06/25/2014 [facility] CHEM PANEL Alk Phos 100 unit/L 39 - 136 06/25/2014 [facility] CHEM PANEL Bili Total 0.6 mg/dL 0.2 - 1.3 06/25/2014 [facility] CHEM PANEL Total Protein 7.8 g/dL 6.4 - 8.4 06/25/2014 [facility] CHEM PANEL Potassium Lvl 3.4 meq/L 3.5 - 5.1 06/25/2014 [facility] CHEM PANEL Sodium Lvl 140 meq/L 135 - 145 06/25/2014 [facility] CHEM PANEL Chloride Lvl 107 meq/L 95 - 109 06/25/2014 [facility] CHEM PANEL BUN 14 mg/dL 7 - 22 06/25/2014 [facility] CHEM PANEL Creatinine Lvl 0.8 mg/dL 0.5 - 1.4 06/25/2014 [facility] CHEM PANEL CO2 27 meq/L 24 - 32 06/25/2014 [facility] CHEM PANEL Calcium Lvl 9.3 mg/dL 8.5 - 10.5 06/25/2014 [facility] CHEM PANEL Glucose Lvl 88 mg/dL 70 - 99 06/25/2014 2Interpretive Data: Adult reference range values reflect the clinical guidelines of the [place] [employer]. [facility] CHEM PANEL Amylase Lvl 40 unit/L 25 - 115 06/25/2014 [facility] HEMATOLOGY Eosinophils 2.4 % 0.0 - 4.0 06/25/2014 [facility] HEMATOLOGY Segs-Bands # 3.1 K/CMM 1.5 - 8.1 06/25/2014 [facility] HEMATOLOGY Basophils 0.4 % 0.0 - 1.0 06/25/2014 [facility] HEMATOLOGY Eosinophils # 0.2 K/CMM 0.0 - 0.5 06/25/2014 [facility] Microcyte 2+ *ABN* (06/25/14 2:30 PM) None Seen 06/25/2014 [facility] HEMATOLOGY Monocytes # 0.8 K/CMM 0.0 - 0.8 06/25/2014 [facility] HEMATOLOGY Lymphocytes # 2.4 K/CMM 1.0 - 5.5 06/25/2014 [facility] Lymphocytes 36.6 % 20.0 - 40.0 06/25/2014 [facility] Monocytes 12.4 % 2.0 - 12.0 06/25/2014 [facility] HEMATOLOGY Segs 48.2 % 45.0 - 75.0 06/25/2014 [facility] HEMATOLOGY Platelet 340 K/CMM 133 - 450 06/25/2014 [facility] RDW 18.8 % 11.5 - 14.5 06/25/2014 [facility] MCHC 31.7 g/dL 32.0 - 36.0 06/25/2014 [facility] MCH 22.1 pg 27.0 - 31.0 06/25/2014 [facility] MCV 69.8 fL 80.0 - 98.0 06/25/2014 [facility] MPV 7.2 fL 7.4 - 10.4 06/25/2014 [facility] Hct 37.3 % 36.0 - 48.0 06/25/2014 [facility] HEMATOLOGY Hgb 11.8 g/dL 12.0 - 16.0 06/25/2014 [facility] HEMATOLOGY WBC 6.5 K/CMM 3.7 - 10.4 06/25/2014 [facility] HEMATOLOGY RBC 5.35 M/CMM 4.20 - 5.40 06/25/2014 [facility] IMMUNOLOGY [facility] HIV 4th GEN Negative (06/25/14 2:30 PM) Negative 06/25/2014 [facility] Abdomen RUQ US Abdomen RUQ US ABDOMINAL ULTRASOUND HX: Abdominal pain, acute COMPARISON: 04/15/2014 FINDINGS: The gallbladder is normal. Views of the abdomen reveal no evidence of cholelithiasis or dilatation of bile ducts. The liver is homogeneous. Views of the kidneys show no hydronephrosis or perinephric fluid. The pancreas is well seen and is normal. The common hepatic duct is within normal limits of size, measuring 2 mm. The spleen, IVC and abdominal aorta are not enlarged. IMPRESSION: Negative abdominal ultrasound. SL: 12 06/25/2014 - - Read by: Felice Christine MD Dictated Date/time: 06/25/14 18:21 Electronically Signed by: Felice Christine MD 06/25/14 18:22 FINAL REPORT [facility] Wrist 2 views DX Wrist 2 views DX Exam: Left wrist x-ray, 2 views Reason for Exam: Pain Comparison Exam: None Discussion: No fractures or dislocations are seen of the left wrist. The joint spaces are preserved. No intraosseous lesions. No radiopaque foreign bodies. Impression: 1. No acute bony abnormalities seen within the left wrist . 06/03/2014 - - Read by: Rodolfo Rodriguez MD Dictated Date/time: 06/03/14 17:26 Electronically Signed by: Rodolfo Rodriguez MD 06/03/14 17:28 FINAL REPORT [facility] HEMATOLOGY Hct 28.7 % 36.0 - 48.0 04/15/2014 [facility] HEMATOLOGY Hgb 9.0 g/dL 12.0 - 16.0 04/15/2014 [facility] Abdomen/Pelvis wo IV contrast CT Abdomen/Pelvis wo IV contrast CT HISTORY: Abdominal pain. CT abdomen and pelvis performed without contrast. Comparison 04/13/2014 CT abdomen and pelvis without and with contrast. The visualized lung bases are clear. No pleural effusion. Noncontrast liver, spleen, pancreas, adrenal glands and kidneys are not remarkable. Hyperdense material layering dependently within the gallbladder is most likely vicarious excretion of recent IV contrast administration. There is no bowel obstruction or distention, free air or pathologic fluid. No evidence for appendicitis or diverticulitis. No new pelvic mass or inflammation or fluid is demonstrated. IMPRESSION: No acute finding. SL:13 04/15/2014 - - Read by: Andrew Farrell MD Dictated Date/time: 04/15/14 14:05 Electronically Signed by: Andrew Farrell MD 04/15/14 14:08 FINAL REPORT [facility] CHEM PANEL Magnesium Lvl 1.8 mg/dL 1.8 - 2.4 04/15/2014 [facility] ELECTROLYTES AGAP 13.6 meq/L 10.0 - 20.0 04/15/2014 [facility] ELECTROLYTES eGFR 126 mL/min/1.73m2 04/15/2014 1Result Comment: The eGFR is calculated using the CKD-EPI formula. In most young, healthy individuals the eGFR will be >90 mL/min/1.73m2. The eGFR declines with age. An eGFR of 60-89 may be normal in some populations, particularly the elderly, for whom the CKD-EPI formula has not been extensively validated. Use of the eGFR is not recommended in the following populations: Individuals with unstable creatinine concentrations, including patients and those with serious co-morbid conditions. Patients with extremes in muscle mass or diet. The data above are obtained from the National Kidney Disease Education Program (NKDEP) which additionally recommends that when the eGFR is used in patients with extremes of body mass index for purposes of drug dosing, the eGFR should be multiplied by the estimated BMI. [facility] ELECTROLYTES Glucose Lvl 85 mg/dL 70 - 99 04/15/2014 4Interpretive Data: Adult reference range values reflect the clinical guidelines of the [place] [employer]. [facility] ELECTROLYTES CO2 25 meq/L 24 - 32 04/15/2014 [facility] ELECTROLYTES Calcium Lvl 8.4 mg/dL 8.5 - 10.5 04/15/2014 [facility] ELECTROLYTES Chloride Lvl 108 meq/L 95 - 109 04/15/2014 [facility] ELECTROLYTES Sodium Lvl 143 meq/L 135 - 145 04/15/2014 [facility] ELECTROLYTES Potassium Lvl 3.6 meq/L 3.5 - 5.1 04/15/2014 [facility] ELECTROLYTES Creatinine Lvl 0.7 mg/dL 0.5 - 1.4 04/15/2014 [facility] ELECTROLYTES BUN 8 mg/dL 7 - 22 04/15/2014 [facility] HEMATOLOGY RBC 4.09 M/CMM 4.20 - 5.40 04/15/2014 [facility] MCH 21.0 pg 27.0 - 31.0 04/15/2014 [facility] MCV 67.6 fL 81.0 - 99.0 04/15/2014 [facility] HEMATOLOGY Hct 27.7 % 36.0 - 48.0 04/15/2014 [facility] Hgb 8.6 g/dL 12.0 - 16.0 04/15/2014 [facility] WBC 7.9 K/CMM 3.7 - 10.4 04/15/2014 [facility] MCHC 31.1 g/dL 32.0 - 36.0 04/15/2014 [facility] MPV 7.7 fL 7.4 - 10.4 04/15/2014 [facility] Platelet 307 K/CMM 133 - 450 04/15/2014 [facility] RDW 15.5 % 11.5 - 14.5 04/15/2014 [facility] Segs 39.9 % 45.0 - 75.0 04/15/2014 [facility] Lymphocytes 51.5 % 20.0 - 40.0 04/15/2014 [facility] Monocytes 8.0 % 2.0 - 12.0 04/15/2014 [facility] Eosinophils 0.4 % 0.0 - 4.0 04/15/2014 [facility] Basophils 0.2 % 0.0 - 1.0 04/15/2014 [facility] Segs-Bands # 3.2 K/CMM 1.5 - 8.1 04/15/2014 [facility] Lymphocytes # 4.1 K/CMM 1.0 - 5.5 04/15/2014 [facility] Microcyte 3+ *NA* (04/15/14 3:00 AM) None Seen 04/15/2014 [facility] Monocytes # 0.6 K/CMM 0.0 - 0.8 04/15/2014 [facility] ANEMIA STUDY % Satur Fe 5 % 12 - 57 04/14/2014 [facility] ANEMIA STUDY TIBC 422 ug/dl 228 - 428 04/14/2014 [facility] ANEMIA STUDY UIBC 402 ug/dl 110 - 370 04/14/2014 [facility] ANEMIA STUDY Iron 20 ug/dl 30 - 160 04/14/2014 [facility] ANEMIA STUDY Ferritin Lvl 3 ng/mL 5 - 204 04/14/2014 [facility] ELECTROLYTES AGAP 12.9 meq/L 10.0 - 20.0 04/14/2014 [facility] ELECTROLYTES Globulin 3.4 g/dL 2.0 - 4.0 04/14/2014 [facility] ELECTROLYTES B/C Ratio 9 6 - 25 04/14/2014 [facility] ELECTROLYTES A/G Ratio 1.0 0.7 - 1.6 04/14/2014 [facility] ELECTROLYTES eGFR 126 mL/min/1.73m2 04/14/2014 2Result Comment: The eGFR is calculated using the CKD-EPI formula. In most young, healthy individuals the eGFR will be >90 mL/min/1.73m2. The eGFR declines with age. An eGFR of 60-89 may be normal in some populations, particularly the elderly, for whom the CKD-EPI formula has not been extensively validated. Use of the eGFR is not recommended in the following populations: Individuals with unstable creatinine concentrations, including patients and those with serious co-morbid conditions. Patients with extremes in muscle mass or diet. The data above are obtained from the National Kidney Disease Education Program (NKDEP) which additionally recommends that when the eGFR is used in patients with extremes of body mass index for purposes of drug dosing, the eGFR should be multiplied by the estimated BMI. [facility] ELECTROLYTES Creatinine Lvl 0.7 mg/dL 0.5 - 1.4 04/14/2014 [facility] ELECTROLYTES Sodium Lvl 140 meq/L 135 - 145 04/14/2014 [facility] ELECTROLYTES Glucose Lvl 109 mg/dL 70 - 99 04/14/2014 5Interpretive Data: Adult reference range values reflect the clinical guidelines of the [place] [employer]. [facility] ELECTROLYTES BUN 6 mg/dL 7 - 22 04/14/2014 [facility] ELECTROLYTES AST 12 unit/L 0 - 37 04/14/2014 [facility] ELECTROLYTES Alk Phos 83 unit/L 39 - 136 04/14/2014 [facility] ELECTROLYTES Bili Total 0.6 mg/dL 0.2 - 1.3 04/14/2014 [facility] ELECTROLYTES Total Protein 6.9 g/dL 6.4 - 8.4 04/14/2014 [facility] ELECTROLYTES ALT 20 unit/L 0 - 65 04/14/2014 [facility] ELECTROLYTES Calcium Lvl 8.7 mg/dL 8.5 - 10.5 04/14/2014 [facility] ELECTROLYTES Albumin Lvl 3.5 g/dL 3.5 - 5.0 04/14/2014 [facility] ELECTROLYTES Potassium Lvl 3.9 meq/L 3.5 - 5.1 04/14/2014 [facility] ELECTROLYTES Chloride Lvl 107 meq/L 95 - 109 04/14/2014 [facility] ELECTROLYTES CO2 24 meq/L 24 - 32 04/14/2014 [facility] HEMATOLOGY Hgb 9.9 g/dL 12.0 - 16.0 04/14/2014 [facility] RBC 4.68 M/CMM 4.20 - 5.40 04/14/2014 [facility] WBC 7.6 K/CMM 3.7 - 10.4 04/14/2014 [facility] MCV 67.5 fL 81.0 - 99.0 04/14/2014 [facility] Hct 31.6 % 36.0 - 48.0 04/14/2014 [facility] MCH 21.1 pg 27.0 - 31.0 04/14/2014 [facility] MCHC 31.2 g/dL 32.0 - 36.0 04/14/2014 [facility] MPV 7.6 fL 7.4 - 10.4 04/14/2014 [facility] Platelet 363 K/CMM 133 - 450 04/14/2014 [facility] RDW 15.6 % 11.5 - 14.5 04/14/2014 [facility] Microcyte 3+ *NA* (04/14/14 5:53 AM) None Seen 04/14/2014 [facility] Monocytes # 0.2 K/CMM 0.0 - 0.8 04/14/2014 [facility] Lymphocytes # 1.4 K/CMM 1.0 - 5.5 04/14/2014 [facility] Segs-Bands # 6.0 K/CMM 1.5 - 8.1 04/14/2014 [facility] Segs 78.7 % 45.0 - 75.0 04/14/2014 [facility] Lymphocytes 18.9 % 20.0 - 40.0 04/14/2014 [facility] Monocytes 2.3 % 2.0 - 12.0 04/14/2014 [facility] Basophils 0.1 % 0.0 - 1.0 04/14/2014 [facility] IMMUNOLOGY Gonorrhea PCR Negative (04/13/14 7:38 PM) Negative 04/14/2014 [facility] IMMUNOLOGY Source Rogelio [employer] 04/14/2014 [facility] IMMUNOLOGY Source [place] [employer] 04/14/2014 [facility] IMMUNOLOGY Chlam PCR Negative (04/13/14 7:38 PM) Negative 04/14/2014 [facility] URINE AND STOOL UA Urobilinogen <=1.0 mg/dL 0.1 - 1.0 04/13/2014 [facility] URINE AND STOOL UA Color Yellow *NA* (04/13/14 5:30 PM) Yellow 04/13/2014 [facility] URINE AND STOOL UA Turbidity Slight *ABN* (04/13/14 5:30 PM) Clear 04/13/2014 [facility] URINE AND STOOL UA Spec Grav 1.024 <=1.030 04/13/2014 [facility] URINE AND STOOL UA pH 6.0 5.0 - 8.0 04/13/2014 [facility] URINE AND STOOL UA Protein Negative mg/dL Negative mg/dL 04/13/2014 [facility] URINE AND STOOL UA Ketones Negative mg/dL Negative mg/dL 04/13/2014 [facility] URINE AND STOOL UA Bili Negative *NA* (04/13/14 5:30 PM) Negative 04/13/2014 [facility] URINE AND STOOL UA Glucose Negative mg/dL Negative mg/dL 04/13/2014 [facility] URINE AND STOOL UA Blood Negative (04/13/14 5:30 PM) Negative 04/13/2014 [facility] URINE AND STOOL UA Nitrite Negative (04/13/14 5:30 PM) Negative 04/13/2014 [facility] URINE AND STOOL UA Leuk Est Moderate *ABN* (04/13/14 5:30 PM) Negative 04/13/2014 [facility] URINE AND STOOL UA RBC 3 /HPF 0 - 2 04/13/2014 [facility] URINE AND STOOL UA Sq Epi Occasional /LPF Few /LPF 04/13/2014 [facility] URINE AND STOOL UA WBC 3 /HPF 0 - 5 04/13/2014 [facility] URINE AND STOOL UA Bacteria Occasional /HPF None Seen /HPF 04/13/2014 [facility] URINE AND STOOL UA Mucus Few /LPF None Seen /LPF 04/13/2014 [facility] URINE CHEM U Preg Negative (04/13/14 5:30 PM) Negative 04/13/2014 [facility] CHEM PANEL Lipase Lvl 163 unit/L 73 - 393 04/13/2014 [facility] CHEM PANEL Amylase Lvl 40 unit/L 25 - 115 04/13/2014 [facility] CHEM PANEL Albumin Lvl 4.3 g/dL 3.5 - 5.0 04/13/2014 [facility] CHEM PANEL ALT 17 unit/L 0 - 65 04/13/2014 [facility] CHEM PANEL AST 9 unit/L 0 - 37 04/13/2014 [facility] CHEM PANEL Alk Phos 96 unit/L 39 - 136 04/13/2014 [facility] CHEM PANEL Bili Total 0.7 mg/dL 0.2 - 1.3 04/13/2014 [facility] CHEM PANEL eGFR 107 mL/min/1.73m2 04/13/2014 3Result Comment: The eGFR is calculated using the CKD-EPI formula. In most young, healthy individuals the eGFR will be >90 mL/min/1.73m2. The eGFR declines with age. An eGFR of 60-89 may be normal in some populations, particularly the elderly, for whom the CKD-EPI formula has not been extensively validated. Use of the eGFR is not recommended in the following populations: Individuals with unstable creatinine concentrations, including patients and those with serious co-morbid conditions. Patients with extremes in muscle mass or diet. The data above are obtained from the National Kidney Disease Education Program (NKDEP) which additionally recommends that when the eGFR is used in patients with extremes of body mass index for purposes of drug dosing, the eGFR should be multiplied by the estimated BMI. [facility] CHEM PANEL BUN 9 mg/dL 7 - 22 04/13/2014 [facility] CHEM PANEL Sodium Lvl 138 meq/L 135 - 145 04/13/2014 [facility] CHEM PANEL Creatinine Lvl 0.8 mg/dL 0.5 - 1.4 04/13/2014 [facility] CHEM PANEL Glucose Lvl 101 mg/dL 70 - 99 04/13/2014 6Interpretive Data: Adult reference range values reflect the clinical guidelines of the [place] [employer]. [facility] CHEM PANEL Chloride Lvl 106 meq/L 95 - 109 04/13/2014 [facility] CHEM PANEL CO2 26 meq/L 24 - 32 04/13/2014 [facility] CHEM PANEL Total Protein 8.1 g/dL 6.4 - 8.4 04/13/2014 [facility] CHEM PANEL Calcium Lvl 9.2 mg/dL 8.5 - 10.5 04/13/2014 [facility] CHEM PANEL Potassium Lvl 3.9 meq/L 3.5 - 5.1 04/13/2014 [facility] CHEM PANEL Globulin 3.8 g/dL 2.0 - 4.0 04/13/2014 [facility] CHEM PANEL A/G Ratio 1.1 0.7 - 1.6 04/13/2014 [facility] CHEM PANEL AGAP 9.9 meq/L 10.0 - 20.0 04/13/2014 [facility] CHEM PANEL B/C Ratio 11 6 - 25 04/13/2014 [facility] ENDOCRINOLOGY S Preg Negative *NA* (04/13/14 4:37 PM) Negative 04/13/2014 [facility] HEMATOLOGY MCHC 31.3 g/dL 32.0 - 36.0 04/13/2014 [facility] Platelet 381 K/CMM 133 - 450 04/13/2014 [facility] RDW 15.6 % 11.5 - 14.5 04/13/2014 [facility] MPV 7.3 fL 7.4 - 10.4 04/13/2014 [facility] MCV 67.8 fL 81.0 - 99.0 04/13/2014 [facility] MCH 21.3 pg 27.0 - 31.0 04/13/2014 [facility] RBC 5.06 M/CMM 4.20 - 5.40 04/13/2014 [facility] WBC 7.8 K/CMM 3.7 - 10.4 04/13/2014 [facility] PTT 47.3 s 22.9 - 35.8 04/13/2014 8Interpretive Data: Heparin Therapeutic Range: 57 - 92 Seconds [facility] INR 1.20 0.85 - 1.17 04/13/2014 7Interpretive Data: RECOMMENDED RANGES FOR PROTIME INR: 2.0-3.0 for most medical and surgical thromboembolic states. 2.5-3.5 for artificial heart valves and recurrent embolism. INR SHOULD BE USED ONLY FOR PATIENTS ON STABLE ANTICOAGULANT THERAPY. [facility] PT 15.1 s 12.0 - 14.7 04/13/2014 [facility] Eosinophils 0.9 % 0.0 - 4.0 04/13/2014 [facility] Microcyte 3+ *NA* (04/13/14 4:37 PM) None Seen 04/13/2014 [facility] Monocytes # 0.7 K/CMM 0.0 - 0.8 04/13/2014 [facility] HEMATOLOGY Eosinophils # 0.1 K/CMM 0.0 - 0.5 04/13/2014 [facility] HEMATOLOGY Lymphocytes # 3.0 K/CMM 1.0 - 5.5 04/13/2014 [facility] Basophils 0.4 % 0.0 - 1.0 04/13/2014 [facility] Segs-Bands # 4.0 K/CMM 1.5 - 8.1 04/13/2014 [facility] Monocytes 9.0 % 2.0 - 12.0 04/13/2014 [facility] Segs 51.5 % 45.0 - 75.0 04/13/2014 [facility] Lymphocytes 38.2 % 20.0 - 40.0 04/13/2014 [facility] Pelvis w Transvag and Pelvis Doppler US Pelvis w Transvag and Pelvis Doppler US TRANSVESICAL AND TRANSVAGINAL PELVIC ULTRASOUND: CLINICAL HISTORY: Pelvic pain. TECHNIQUE AND FINDINGS: Multiple static images from transvesical and transvaginal pelvic ultrasound are submitted for interpretation. COMPARISON: No prior similar examinations are currently available for comparison. TRANSVESICAL PELVIC ULTRASOUND: The transvesical images are limited by an underdistended urinary bladder resulting in a reduced sonographic window. The uterus appears small measuring 5.7 x 2.7 x 2.6 cm. Myometrial detail is limited. The endometrial stripe is never well delineated. Normal size right ovary measuring 3.3 x 2.1 x 2.9 cm containing a 1.3 cm simple to minimally complex cyst. Normal left ovary measuring 1.8 x 2.1 x 1.7 cm. Blood flow is demonstrated to both ovaries. No free pelvic fluid. TRANSVAGINAL PELVIC ULTRASOUND: Small uterus with endometrial stripe thickness measuring 3 mm. Trace fluid in the endocervical canal. Both ovaries are normal in size with a 1.6 cm simple to mildly complex right ovarian cyst. No free pelvic fluid. IMPRESSION: 1. Simple to mildly complex right ovarian cyst. Short interval follow up pelvic ultrasound is recommended in 2-3 months 2. Trace free fluid in the endocervical canal. SL:17 04/13/2014 - - Read by: Aki Kendall MD Dictated Date/time: 04/13/14 20:53 Electronically Signed by: Aki Kendall MD 04/13/14 20:55 FINAL REPORT [facility] Abdomen/Pelvis w/wo IV contrast CT Abdomen/Pelvis w/wo IV contrast CT CT SCAN OF THE ABDOMEN AND PELVIS WITHOUT AND WITH CONTRAST. HX: Abdominal pain, acute. COMPARISON: [None] Technique: Helical CT images were obtained from the domes the diaphragms to the symphysis pubis before and after the administration of intravenous contrast. No p.o. contrast was given. ABDOMEN AND PELVIS: Minimal left basilar atelectasis or scarring. There are no pleural effusions. The heart is normal in size. Grossly normal gallbladder. The liver, spleen, pancreas, and adrenals are normal in appearance. No renal or ureteral calculi or hydronephrosis. No significant perinephric stranding. The kidneys show good, symmetrical, excretion without hydronephrosis. grossly normal appendix. No inflammatory change within the right lower quadrant. No abdominal masses, adenopathy, ascites, or fluid collections are seen. The bladder is nondistended. Tiny fat containing umbilical hernia is present. Small right ovarian cyst is present. IMPRESSION: 1. No definite acute focal abnormality detected. No definite obstructive uropathy or convincing evidence of acute appendicitis. SL: 12 04/13/2014 - - Read by: Rudi Candelaria MD Dictated Date/time: 04/13/14 19:09 Electronically Signed by: Rudi Candelaria MD 04/13/14 19:12 FINAL REPORT [facility] CHEM PANEL Phosphorus 2.0 mg/dL 2.5 - 4.5 11/20/2013 [facility] CHEM PANEL eGFR 107 mL/min/1.73m2 11/20/2013 1Result Comment: The eGFR is calculated using the CKD-EPI formula. In most young, healthy individuals the eGFR will be >90 mL/min/1.73m2. The eGFR declines with age. An eGFR of 60-89 may be normal in some populations, particularly the elderly, for whom the CKD-EPI formula has not been extensively validated. Use of the eGFR is not recommended in the following populations: Individuals with unstable creatinine concentrations, including patients and those with serious co-morbid conditions. Patients with extremes in muscle mass or diet. The data above are obtained from the National Kidney Disease Education Program (NKDEP) which additionally recommends that when the eGFR is used in patients with extremes of body mass index for purposes of drug dosing, the eGFR should be multiplied by the estimated BMI. [facility] CHEM PANEL AGAP 10.7 meq/L 10.0 - 20.0 11/20/2013 [facility] CHEM PANEL Calcium Lvl 8.0 mg/dL 8.5 - 10.5 11/20/2013 [facility] CHEM PANEL Chloride Lvl 110 meq/L 95 - 109 11/20/2013 [facility] CHEM PANEL CO2 23 meq/L 24 - 32 11/20/2013 [facility] CHEM PANEL BUN 6 mg/dL 7 - 22 11/20/2013 [facility] CHEM PANEL Creatinine Lvl 0.8 mg/dL 0.5 - 1.4 11/20/2013 [facility] CHEM PANEL Glucose Lvl 119 mg/dL 70 - 99 11/20/2013 3Interpretive Data: Adult reference range values reflect the clinical guidelines of the [place] [employer]. [facility] CHEM PANEL Sodium Lvl 140 meq/L 135 - 145 11/20/2013 [facility] CHEM PANEL Potassium Lvl 3.7 meq/L 3.5 - 5.1 11/20/2013 [facility] HEMATOLOGY Basophils 0.1 % 0.0 - 1.0 11/20/2013 [facility] HEMATOLOGY Segs-Bands # 6.1 K/CMM 1.5 - 8.1 11/20/2013 [facility] Eosinophils 0.2 % 0.0 - 4.0 11/20/2013 [facility] Lymphocytes # 1.3 K/CMM 1.0 - 5.5 11/20/2013 [facility] Monocytes # 0.7 K/CMM 0.0 - 0.8 11/20/2013 [facility] Monocytes 8.8 % 2.0 - 12.0 11/20/2013 [facility] HEMATOLOGY Segs 74.9 % 45.0 - 75.0 11/20/2013 [facility] Lymphocytes 16.0 % 20.0 - 40.0 11/20/2013 [facility] HEMATOLOGY Basophils # 0.0 K/CMM 0.0 - 0.2 11/20/2013 [facility] HEMATOLOGY Eosinophils # 0.0 K/CMM 0.0 - 0.5 11/20/2013 [facility] Platelet 254 K/CMM 133 - 450 11/20/2013 [facility] MPV 7.1 fL 7.4 - 10.4 11/20/2013 [facility] RDW 15.2 % 11.5 - 14.5 11/20/2013 [facility] HEMATOLOGY MCH 24.6 pg 27.0 - 31.0 11/20/2013 [facility] HEMATOLOGY RBC X 10x6 4.17 M/CMM 4.20 - 5.40 11/20/2013 [facility] HEMATOLOGY MCV 74.1 fL 81.0 - 99.0 11/20/2013 [facility] MCHC 33.1 g/dL 32.0 - 36.0 11/20/2013 [facility] HEMATOLOGY Hgb 10.2 g/dL 12.0 - 16.0 11/20/2013 [facility] HEMATOLOGY WBC X 10x3 8.1 K/CMM 3.7 - 10.4 11/20/2013 [facility] HEMATOLOGY Hct 30.9 % 36.0 - 48.0 11/20/2013 [facility] URINE AND STOOL UA Urobilinogen <=1.0 mg/dL 0.1 - 1.0 11/20/2013 [facility] URINE AND STOOL UA Color Ltyellow 11/20/2013 [facility] URINE AND STOOL UA Nitrite Negative (11/20/2013 00:15:41 [place]) Negative 11/20/2013 [facility] URINE AND STOOL UA Leuk Est Negative (11/20/2013 00:15:41 [place]) Negative 11/20/2013 [facility] URINE AND STOOL UA Sq Epi Few /LPF Few /LPF 11/20/2013 [facility] URINE AND STOOL UA RBC 1 /HPF 0 - 2 11/20/2013 [facility] URINE AND STOOL UA Bacteria Occasional /HPF None Seen /HPF 11/20/2013 [facility] URINE AND STOOL UA WBC 2 /HPF 0 - 5 11/20/2013 [facility] URINE AND STOOL UA CaOx Jessenia Occasional /HPF None Seen /HPF 11/20/2013 [facility] URINE AND STOOL UA pH 7.0 5.0 - 8.0 11/20/2013 [facility] URINE AND STOOL UA Spec Grav 1.013 <=1.030 11/20/2013 [facility] URINE AND STOOL UA Protein Negative mg/dL Negative mg/dL 11/20/2013 [facility] URINE AND STOOL UA Turbidity Clear (11/20/2013 00:15:41 [place]) Clear 11/20/2013 [facility] URINE AND STOOL UA Bili Negative *NA* (11/20/2013 00:15:41 [place]) Negative 11/20/2013 [facility] URINE AND STOOL UA Ketones Trace mg/dL Negative mg/dL 11/20/2013 [facility] URINE AND STOOL UA Glucose Negative mg/dL Negative mg/dL 11/20/2013 [facility] URINE AND STOOL UA Blood Small *ABN* (11/20/2013 00:15:41 [place]) Negative 11/20/2013 [facility] MOLECULAR DIAGNOSTIC RSV PCR Negative 8 (11/19/2013 18:57:16 [place]) Negative 11/20/2013 8Interpretive Data: [employer] Dxe ProFlu plus assay is a multiplex real- time PCR test for the qualitative detection and discrimination of Influenza A Virus, Influenza B Virus, and Respiratory Syncytial Virus. A negative result does not rule out the presence of these viruses. The specimen may contain polymerase chain reaction (PCR) inhibitors or virus below the detectable limits of the assay. Results should not be used as the sole basis for clinical diagnosis, treatment, or patient management. This assay utilizes FDA cleared IVD reagents for Real-Time nucleic acid amplification (PCR). Performance characteristics have been verified by the [facility] within [facility]. The Molecular Diagnostic Laboratory is authorized under the Clinical Laboratory Improvement Amendments of 1988 (CLIA-88) to perform high complexity testing. [facility] MOLECULAR DIAGNOSTIC Influenza A PCR Negative (11/19/2013 18:57:16 [place]) Negative 11/20/2013 [facility] MOLECULAR DIAGNOSTIC Influenza B PCR Negative (11/19/2013 18:57:16 [facility]/[place]) Negative 11/20/2013 [facility] MOLECULAR DIAGNOSTIC Source Respiratory Panel PCR [employer] PET [employer]ERSON Swab (11/19/2013 18:57:16 [place]/[place]) 11/20/2013 [facility] CHEM PANEL Lactic Acid Lvl 1.1 mMol/L 0.5 - 2.2 11/19/2013 [facility] HEMATOLOGY Elliptocyte Slight *ABN* (11/19/2013 09:40:00 [facility]/[place]) None Seen 11/19/2013 [facility] HEMATOLOGY Hypochrom Slight (11/19/2013 09:40:00 [facility]) None Seen 11/19/2013 [facility] HEMATOLOGY Atypical Lymphs 0.0 % <=0.0 % 11/19/2013 [facility] HEMATOLOGY Plt Morph Normal (11/19/2013 09:40:00 [facility]) 11/19/2013 [facility] Tot Cell Ct 100 11/19/2013 [facility] Lymphocytes 25.0 % 20.0 - 40.0 11/19/2013 [facility] HEMATOLOGY Bands 8.0 % 0.0 - 11.0 11/19/2013 [facility] HEMATOLOGY Segs 66.0 % 45.0 - 75.0 11/19/2013 [facility] HEMATOLOGY Monocytes 1.0 % 2.0 - 12.0 11/19/2013 [facility] IMMUNOLOGY EVANGELINA Negative (11/19/2013 04:24:50 [place]) Negative 11/19/2013 [facility] CHEM PANEL Phosphorus 0.8 mg/dL 2.5 - 4.5 11/19/2013 5Result Comment: Critical Result(s) called to Sofía TEE at 11/19/2013 08:13 byab. Read back OK. [facility] CHEM PANEL Magnesium Lvl 1.9 mg/dL 1.8 - 2.4 11/19/2013 [facility] CHEM PANEL Procalcitonin Lvl 0.42 ng/mL 0.00 - 0.10 11/19/2013 [facility] ELECTROLYTES AGAP 15.1 meq/L 10.0 - 20.0 11/19/2013 [facility] ELECTROLYTES B/C Ratio 7 6 - 25 11/19/2013 [facility] ELECTROLYTES Globulin 4.0 g/dL 2.0 - 4.0 11/19/2013 [facility] ELECTROLYTES A/G Ratio 0.8 0.7 - 1.6 11/19/2013 [facility] ELECTROLYTES eGFR 93 mL/min/1.73m2 11/19/2013 2Result Comment: The eGFR is calculated using the CKD-EPI formula. In most young, healthy individuals the eGFR will be >90 mL/min/1.73m2. The eGFR declines with age. An eGFR of 60-89 may be normal in some populations, particularly the elderly, for whom the CKD-EPI formula has not been extensively validated. Use of the eGFR is not recommended in the following populations: Individuals with unstable creatinine concentrations, including patients and those with serious co-morbid conditions. Patients with extremes in muscle mass or diet. The data above are obtained from the National Kidney Disease Education Program (NKDEP) which additionally recommends that when the eGFR is used in patients with extremes of body mass index for purposes of drug dosing, the eGFR should be multiplied by the estimated BMI. [facility] ELECTROLYTES Bili Total 0.6 mg/dL 0.2 - 1.3 11/19/2013 [facility] ELECTROLYTES ASPARTATE TRANSAMINASE 18 unit/L 0 - 37 11/19/2013 [facility] ELECTROLYTES BUN 6 mg/dL 7 - 22 11/19/2013 [facility] ELECTROLYTES Creatinine Lvl 0.9 mg/dL 0.5 - 1.4 11/19/2013 [facility] ELECTROLYTES Glucose Lvl 101 mg/dL 70 - 99 11/19/2013 4Interpretive Data: Adult reference range values reflect the clinical guidelines of the [place] [employer]. [facility] ELECTROLYTES Calcium Lvl 8.3 mg/dL 8.5 - 10.5 11/19/2013 [facility] ELECTROLYTES Sodium Lvl 137 meq/L 135 - 145 11/19/2013 [facility] ELECTROLYTES Chloride Lvl 108 meq/L 95 - 109 11/19/2013 [facility] ELECTROLYTES CO2 17 meq/L 24 - 32 11/19/2013 [facility] ELECTROLYTES Potassium Lvl 3.1 meq/L 3.5 - 5.1 11/19/2013 [facility] ELECTROLYTES Alk Phos 89 unit/L 39 - 136 11/19/2013 [facility] ELECTROLYTES Total Protein 7.2 g/dL 6.4 - 8.4 11/19/2013 [facility] ELECTROLYTES Albumin Lvl 3.2 g/dL 3.5 - 5.0 11/19/2013 [facility] ALANINE AMINOTRANSFERASE 19 unit/L 0 - 65 11/19/2013 [facility] Sed Rate 39 mm/h 0 - 20 11/19/2013 [facility] INR 1.44 0.85 - 1.17 11/19/2013 6Interpretive Data: RECOMMENDED RANGES FOR PROTIME INR: 2.0-3.0 for most medical and surgical thromboembolic states. 2.5-3.5 for artificial heart valves and recurrent embolism. INR SHOULD BE USED ONLY FOR PATIENTS ON STABLE ANTICOAGULANT THERAPY. [facility] PROTIME 17.3 s 12.0 - 14.7 11/19/2013 [facility] aPTT 40.5 s 22.9 - 35.8 11/19/2013 7Interpretive Data: Heparin Therapeutic Range: 57 - 92 Seconds [facility] MPV 7.8 fL 7.4 - 10.4 11/19/2013 [facility] WBC X 10x3 8.3 K/CMM 3.7 - 10.4 11/19/2013 [facility] RBC X 10x6 4.42 M/CMM 4.20 - 5.40 11/19/2013 [facility] RDW 15.3 % 11.5 - 14.5 11/19/2013 [facility] Platelet 253 K/CMM 133 - 450 11/19/2013 [facility] MCH 24.1 pg 27.0 - 31.0 11/19/2013 [facility] MCHC 31.8 g/dL 32.0 - 36.0 11/19/2013 [facility] Hgb 10.6 g/dL 12.0 - 16.0 11/19/2013 [facility] MCV 75.8 fL 81.0 - 99.0 11/19/2013 [facility] Hct 33.5 % 36.0 - 48.0 11/19/2013 [facility] THYROID PANEL TSH 0.577 uIU/mL 0.360 - 3.740 11/19/2013 [facility] VIRAL - SEROLOGY Enterovirus PCR CSF Negative 9 (11/18/2013 21:35:00 [place]) Negative 11/19/2013 9Interpretive Data: Interpretation: Negative.....No enterovirus DNA detected by PCR Positive.....Enterovirus DNA detected by PCR Assay Limitations: A negative result does not rule out the presence of PCR inhibitors in the patient specimen or Enterovirus nucleic acid in concentrations below the level of detection of the assay. [facility] Brain w/wo contrast MRI Brain w/wo contrast MRI MRI BRAIN WITHOUT AND WITH CONTRAST COMPARISON: No prior exam. COMMENTS: The volume of the brain is age-appropriate. No hydrocephalus, acute infarct, intracranial hemorrhage, mass, or midline shift is seen. The brainstem and cerebellum are free of signal abnormality. Small focus of right frontal white matter increased T2 and FLAIR signal is identified, measuring approximately 4.2 mm. No corresponding diffusion abnormality or enhancement is seen. The remainder of the white matter tracts appear unremarkable. No corpus callosum is unremarkable. No pathologic enhancement is demonstrated. The paranasal sinuses and mastoid air cells are well aerated. IMPRESSION: 1. No acute hemorrhage, acute ischemia, or mass. 2. Nonspecific solitary right frontal white matter focus of increased signal as above. The differential includes sequela of migraine cephalgia versus vasculitis in this young patient. 11/06/2013 - - Read by: Addi Moncada Dictated Date/time: 11/07/13 08:14 Electronically Signed by: Addi Moncada MD 11/07/13 15:18 FINAL REPORT [facility] CHEMISTRY Ketone Quantitative 0.26 mmol/L <=0.27 08/16/2012 Normal [facility] CHEMISTRY U Preg Positive *ABN* (08/16/2012 05:00:00) Negative 08/16/2012 ABN [facility] CHEMISTRY U Preg Negative (02/27/2012 08:00:00) Negative 02/27/2012 Normal [facility] CHEMISTRY U Preg Negative (01/10/2012 19:40:00) Negative 01/11/2012 Normal [facility] URINALYSIS UA Bili Negative *NA* (01/10/2012 19:40:00) Negative 01/11/2012 NA [facility] URINALYSIS UA Blood Negative (01/10/2012 19:40:00) Negative 01/11/2012 Normal [facility] URINALYSIS UA Urobilinogen 0.2 EU/dL 0.1 - 1.0 01/11/2012 Normal [facility] URINALYSIS UA Nitrite Negative (01/10/2012 19:40:00) Negative 01/11/2012 Normal [facility] URINALYSIS UA Leuk Est Negative (01/10/2012 19:40:00) Negative 01/11/2012 Normal [facility] URINALYSIS UA Spec Grav 1.015 <=1.030 01/11/2012 Normal [facility] URINALYSIS UA pH 6.0 5.0 - 8.0 01/11/2012 Normal [facility] URINALYSIS UA Protein Negative mg/dL (01/10/2012 19:40:00) Negative 01/11/2012 Normal [facility] URINALYSIS UA Glucose Negative mg/dL (01/10/2012 19:40:00) Negative 01/11/2012 Normal [facility] URINALYSIS UA Ketones Negative mg/dL *NA* (01/10/2012 19:40:00) Negative 01/11/2012 NA [facility] URINALYSIS UA Color Yellow *NA* (01/10/2012 19:40:00) Yellow 01/11/2012 NA [facility] URINALYSIS UA Turbidity Clear (01/10/2012 19:40:00) Clear 01/11/2012 Normal [facility] URINALYSIS Micro? Performed (01/10/2012 19:40:00) 01/11/2012 Normal [facility] URINALYSIS UA Sq Epi Rare /LPF (01/10/2012 19:40:00) Few 01/11/2012 Normal [facility] URINALYSIS UA WBC None Seen (01/10/2012 19:40:00) None Seen 01/11/2012 Normal [facility] URINALYSIS UA RBC Rare 01/11/2012 NA [facility] CHEMISTRY BUN 6 mg/dL 7 - 22 01/10/2012 LOW [facility] CHEMISTRY Glucose Lvl 94 mg/dL 70 - 99 01/10/2012 Normal 1Interpretive Data: Adult reference range values reflect the clinical guidelinesof the [place] [employer]. [facility] CHEMISTRY Calcium Lvl 9.5 mg/dL 8.5 - 10.5 01/10/2012 Normal [facility] CHEMISTRY Chloride Lvl 103 meq/L 95 - 109 01/10/2012 Normal [facility] CHEMISTRY CO2 29 meq/L 24 - 32 01/10/2012 Normal [facility] CHEMISTRY Sodium Lvl 141 meq/L 135 - 145 01/10/2012 Normal [facility] CHEMISTRY Potassium Lvl 3.5 meq/L 3.5 - 5.1 01/10/2012 Normal [facility] CHEMISTRY Creatinine Lvl 0.8 mg/dL 0.5 - 1.4 01/10/2012 Normal [facility] CHEMISTRY Bili Total 0.5 mg/dL 0.2 - 1.3 01/10/2012 Normal [facility] CHEMISTRY AST 24 U/L 0 - 37 01/10/2012 Normal [facility] CHEMISTRY Total Protein 7.9 g/dL 6.4 - 8.4 01/10/2012 Normal [facility] CHEMISTRY ALT 51 U/L 0 - 65 01/10/2012 Normal [facility] CHEMISTRY Albumin Lvl 3.9 g/dL 3.5 - 5.0 01/10/2012 Normal [facility] CHEMISTRY Alk Phos 113 U/L 39 - 136 01/10/2012 Normal [facility] CHEMISTRY B/C Ratio 8 6 - 25 01/10/2012 Normal [facility] CHEMISTRY AGAP 12.5 meq/L 10.0 - 20.0 01/10/2012 Normal [facility] CHEMISTRY A/G Ratio 1.0 0.7 - 1.6 01/10/2012 Normal [facility] CHEMISTRY Globulin 4.0 g/dL 2.0 - 4.0 01/10/2012 [facility] HEMATOLOGY MPV 7.4 fL 7.4 - 10.4 01/10/2012 [facility] HEMATOLOGY Platelet 344 K/CMM 133 - 450 01/10/2012 [facility] HEMATOLOGY MCH 24.6 pg 27.0 - 31.0 01/10/2012 [facility] HEMATOLOGY MCV 75.0 fL 81.0 - 99.0 01/10/2012 [facility] HEMATOLOGY RDW 14.3 % 11.5 - 14.5 01/10/2012 [facility] HEMATOLOGY MCHC 32.8 g/dL 32.0 - 36.0 01/10/2012 [facility] HEMATOLOGY Hct 37.3 % 36.0 - 48.0 01/10/2012 [facility] HEMATOLOGY RBC 4.98 M/CMM 4.20 - 5.40 01/10/2012 [facility] HEMATOLOGY Hgb 12.2 g/dL 12.0 - 16.0 01/10/2012 [facility] HEMATOLOGY WBC 15.3 K/CMM 3.7 - 10.4 01/10/2012 [facility] HEMATOLOGY Microcyte 2+ *ABN* (01/10/2012 17:50:00) None Seen 01/10/2012 [facility] HEMATOLOGY Basophils # 0.1 K/CMM 0.0 - 0.2 01/10/2012 [facility] HEMATOLOGY Monocytes # 1.1 K/CMM 0.0 - 0.8 01/10/2012 [facility] HEMATOLOGY Eosinophils # 0.1 K/CMM 0.0 - 0.5 01/10/2012 [facility] HEMATOLOGY Segs-Bands # 10.7 K/CMM 1.5 - 8.1 01/10/2012 [facility] HEMATOLOGY Lymphocytes # 3.3 K/CMM 1.0 - 5.5 01/10/2012 [facility] HEMATOLOGY Monocytes 7.3 % 2.0 - 12.0 01/10/2012 [facility] HEMATOLOGY Basophils 0.8 % 0.0 - 1.0 01/10/2012 [facility] HEMATOLOGY Eosinophils 0.4 % 0.0 - 4.0 01/10/2012 [facility] HEMATOLOGY Lymphocytes 21.7 % 20.0 - 40.0 01/10/2012 Normal [facility] HEMATOLOGY Segs 69.8 % 45.0 - 75.0 01/10/2012 Normal [facility] CHEMISTRY U Preg Negative (12/19/2011 21:25:00) Negative 12/20/2011 Normal [facility] URINALYSIS UA Mucus None Seen (12/19/2011 21:25:00) None Seen 12/20/2011 Normal [facility] URINALYSIS UA Bacteria Occasional /HPF (12/19/2011 21:25:00) None Seen 12/20/2011 Normal [facility] URINALYSIS UA RBC None Seen (12/19/2011 21:25:00) 0 - 2 12/20/2011 Normal [facility] URINALYSIS UA Sq Epi None Seen (12/19/2011 21:25:00) Few 12/20/2011 Normal [facility] URINALYSIS Micro? Performed (12/19/2011 21:25:00) 12/20/2011 Normal [facility] URINALYSIS UA WBC None Seen (12/19/2011 21:25:00) None Seen 12/20/2011 Normal [facility] URINALYSIS UA Blood Negative (12/19/2011 21:25:00) Negative 12/20/2011 Normal [facility] URINALYSIS UA Urobilinogen 0.2 EU/dL 0.1 - 1.0 12/20/2011 Normal [facility] URINALYSIS UA Nitrite Negative (12/19/2011 21:25:00) Negative 12/20/2011 Normal [facility] URINALYSIS UA pH 6.5 5.0 - 8.0 12/20/2011 Normal [facility] URINALYSIS UA Protein Negative mg/dL (12/19/2011 21:25:00) Negative 12/20/2011 Normal [facility] URINALYSIS UA Glucose Negative mg/dL (12/19/2011 21:25:00) Negative 12/20/2011 Normal [facility] URINALYSIS UA Ketones 15 mg/dL *ABN* (12/19/2011 21:25:00) Negative 12/20/2011 ABN [facility] URINALYSIS UA Bili Negative *NA* (12/19/2011 21:25:00) Negative 12/20/2011 NA [facility] URINALYSIS UA Spec Grav 1.010 <=1.030 12/20/2011 Normal [facility] URINALYSIS UA Color Yellow *NA* (12/19/2011 21:25:00) Yellow 12/20/2011 NA [facility] URINALYSIS UA Turbidity Clear (12/19/2011 21:25:00) Clear 12/20/2011 Normal [facility] URINALYSIS UA Leuk Est Negative (12/19/2011 21:25:00) Negative 12/20/2011 Normal [facility] CHEMISTRY Lactic Acid Lvl 0.7 mMol/L 0.5 - 2.2 12/20/2011 Normal [facility] CHEMISTRY Bili Indirect 0.6 mg/dL 0.0 - 1.0 12/20/2011 Normal [facility] CHEMISTRY Globulin 3.7 g/dL 2.0 - 4.0 12/20/2011 Normal [facility] CHEMISTRY A/G Ratio 1.1 0.7 - 1.6 12/20/2011 Normal [facility] CHEMISTRY Bili Total 0.7 mg/dL 0.2 - 1.3 12/20/2011 Normal [facility] CHEMISTRY Bili Direct 0.1 mg/dL 0.0 - 0.3 12/20/2011 Normal [facility] CHEMISTRY ALT 38 U/L 0 - 65 12/20/2011 Normal [facility] CHEMISTRY Alk Phos 117 U/L 39 - 136 12/20/2011 Normal [facility] CHEMISTRY AST 18 U/L 0 - 37 12/20/2011 Normal [facility] CHEMISTRY Albumin Lvl 4.1 g/dL 3.5 - 5.0 12/20/2011 Normal [facility] CHEMISTRY Total Protein 7.8 g/dL 6.4 - 8.4 12/20/2011 Normal [facility] CHEMISTRY Creatinine Lvl 0.9 mg/dL 0.5 - 1.4 12/20/2011 Normal [facility] CHEMISTRY Potassium Lvl 3.6 meq/L 3.5 - 5.1 12/20/2011 Normal [facility] CHEMISTRY Sodium Lvl 138 meq/L 135 - 145 12/20/2011 Normal [facility] CHEMISTRY Glucose Lvl 90 mg/dL 70 - 99 12/20/2011 Normal 1Interpretive Data: Adult reference range values reflect the clinical guidelinesof the [place] [employer]. [facility] CHEMISTRY BUN 7 mg/dL 7 - 22 12/20/2011 Normal [facility] CHEMISTRY Calcium Lvl 9.3 mg/dL 8.5 - 10.5 12/20/2011 Normal [facility] CHEMISTRY Chloride Lvl 100 meq/L 95 - 109 12/20/2011 Normal [facility] CHEMISTRY CO2 25 meq/L 24 - 32 12/20/2011 Normal [facility] CHEMISTRY AGAP 16.6 meq/L 10.0 - 20.0 12/20/2011 Normal [facility] CHEMISTRY Lipase Lvl 117 U/L 73 - 393 12/20/2011 Normal [facility] HEMATOLOGY Segs 68.7 % 45.0 - 75.0 12/20/2011 Normal [facility] HEMATOLOGY Monocytes # 0.3 K/CMM 0.0 - 0.8 12/20/2011 Normal [facility] HEMATOLOGY Eosinophils # 0.1 K/CMM 0.0 - 0.5 12/20/2011 Normal [facility] HEMATOLOGY Eosinophils 0.5 % 0.0 - 4.0 12/20/2011 Normal [facility] HEMATOLOGY Anisocyte 1+ *ABN* (12/19/2011 20:27:00) None Seen 12/20/2011 ABN [facility] HEMATOLOGY Microcyte 1+ *ABN* (12/19/2011 20:27:00) None Seen 12/20/2011 ABN [facility] HEMATOLOGY Basophils # 0.1 K/CMM 0.0 - 0.2 12/20/2011 Normal [facility] HEMATOLOGY Lymphocytes # 3.0 K/CMM 1.0 - 5.5 12/20/2011 Normal [facility] HEMATOLOGY Basophils 1.0 % 0.0 - 1.0 12/20/2011 Normal [facility] HEMATOLOGY Segs-Bands # 7.4 K/CMM 1.5 - 8.1 12/20/2011 Normal [facility] HEMATOLOGY Monocytes 2.4 % 2.0 - 12.0 12/20/2011 Normal [facility] HEMATOLOGY Lymphocytes 27.4 % 20.0 - 40.0 12/20/2011 Normal [facility] HEMATOLOGY Plt Morph Normal (12/19/2011 20:27:00) 12/20/2011 Normal [facility] HEMATOLOGY MCHC 31.8 g/dL 32.0 - 36.0 12/20/2011 LOW [facility] HEMATOLOGY Hct 37.7 % 36.0 - 48.0 12/20/2011 Normal [facility] HEMATOLOGY MCV 76.0 fL 81.0 - 99.0 12/20/2011 LOW [facility] HEMATOLOGY MCH 24.2 pg 27.0 - 31.0 12/20/2011 [facility] HEMATOLOGY RDW 14.3 % 11.5 - 14.5 12/20/2011 Normal [facility] HEMATOLOGY Hgb 12.0 g/dL 12.0 - 16.0 12/20/2011 Normal [facility] HEMATOLOGY RBC 4.96 M/CMM 4.20 - 5.40 12/20/2011 [facility] HEMATOLOGY Platelet 365 K/CMM 133 - 450 12/20/2011 [facility] HEMATOLOGY MPV 6.9 fL 7.4 - 10.4 12/20/2011 [facility] HEMATOLOGY WBC 10.9 K/CMM 3.7 - 10.4 12/20/2011 [facility] Vital Signs Vital Sign Value Date Comments Source Temperature Oral (F) 97.8 F 08/06/2016 [facility] Systolic (mm Hg) 104 08/06/2016 [facility] Diastolic (mm Hg) 62 08/06/2016 [facility] Heart Rate 92 08/06/2016 [facility] Respitory Rate 18 08/06/2016 [facility] Systolic (mm Hg) 101 08/06/2016 [facility] Diastolic (mm Hg) 64 08/06/2016 [facility] Respitory Rate 18 08/06/2016 [facility] Heart Rate 107 08/06/2016 [facility] Temperature Oral (F) 97.9 F 08/06/2016 [facility] Respitory Rate 16 08/05/2016 [facility] Heart Rate 98 08/05/2016 [facility] Temperature Oral (F) 97.8 F 08/05/2016 [facility] Systolic (mm Hg) 116 08/05/2016 [facility] Diastolic (mm Hg) 71 08/05/2016 [facility] Height 160.02 cm 08/05/2016 [facility] Height 160.02 cm 08/05/2016 [facility] BMI Calculated 25.56 08/05/2016 [facility] Weight 65.455 08/05/2016 [facility] Temperature Oral (F) 98.2 F 07/13/2016 [facility] Systolic (mm Hg) 110 07/13/2016 [facility] Diastolic (mm Hg) 70 07/13/2016 [facility] Respitory Rate 18 07/13/2016 [facility] Heart Rate 99 07/13/2016 [facility] Weight 60 07/13/2016 [facility] Temperature Oral (F) 98 F 07/13/2016 [facility] Respitory Rate 18 07/13/2016 [facility] Heart Rate 104 07/13/2016 [facility] Systolic (mm Hg) 107 07/13/2016 [facility] Diastolic (mm Hg) 65 07/13/2016 [facility] Temperature Oral (F) 98.0 F 07/13/2016 [facility] Systolic (mm Hg) 108 07/13/2016 [facility] Diastolic (mm Hg) 76 07/13/2016 [facility] Height 160.02 cm 07/13/2016 [facility] Heart Rate 115 07/13/2016 [facility] Respitory Rate 18 07/13/2016 [facility] Weight 60 07/13/2016 [facility] BMI Calculated 23.43 07/13/2016 [facility] Systolic (mm Hg) 108 07/11/2016 [facility] Diastolic (mm Hg) 69 07/11/2016 [facility] Temperature Oral (F) 98.0 F 07/11/2016 [facility] Heart Rate 90 07/11/2016 [facility] Respitory Rate 18 07/11/2016 [facility] Heart Rate 97 07/11/2016 [facility] Temperature Oral (F) 97.8 F 07/11/2016 [facility] Systolic (mm Hg) 102 07/11/2016 [facility] Diastolic (mm Hg) 61 07/11/2016 [facility] Respitory Rate 16 07/11/2016 [facility] Temperature Oral (F) 98.0 F 07/11/2016 [facility] BMI Calculated 24.5 07/11/2016 [facility] Weight 62.727 07/11/2016 [facility] Height 160.02 cm 07/11/2016 [facility] Systolic (mm Hg) 102 07/11/2016 [facility] Diastolic (mm Hg) 64 07/11/2016 [facility] Heart Rate 127 07/11/2016 [facility] Respitory Rate 18 07/11/2016 [facility] Weight 64.409 06/29/2015 [facility] Systolic (mm Hg) 103 06/29/2015 [facility] Diastolic (mm Hg) 70 06/29/2015 [facility] Heart Rate 100 06/29/2015 [facility] Temperature Oral (F) 98.4 F 06/29/2015 [facility] Respitory Rate 16 06/29/2015 [facility] Temperature Oral (F) 98.5 F 06/29/2015 [facility] Systolic (mm Hg) 89 06/29/2015 [facility] Diastolic (mm Hg) 49 06/29/2015 [facility] Respitory Rate 16 06/29/2015 [facility] Heart Rate 76 06/29/2015 [facility] Heart Rate 87 06/29/2015 [facility] Respitory Rate 18 06/29/2015 [facility] Temperature Oral (F) 98.4 F 06/29/2015 [facility] Systolic (mm Hg) 92 06/29/2015 [facility] Diastolic (mm Hg) 58 06/29/2015 [facility] Weight 59.091 06/28/2015 [facility] BMI Calculated 23.08 06/28/2015 [facility] Height 160.02 cm 06/28/2015 [facility] Systolic (mm Hg) 108 03/06/2015 [facility] Diastolic (mm Hg) 85 03/06/2015 [facility] Temperature Oral (F) 98.0 F 03/06/2015 [facility] Respitory Rate 18 03/06/2015 [facility] Heart Rate 89 03/06/2015 [facility] Systolic (mm Hg) 116 03/06/2015 [facility] Diastolic (mm Hg) 79 03/06/2015 [facility] Heart Rate 109 03/06/2015 [facility] Respitory Rate 18 03/06/2015 [facility] Systolic (mm Hg) 126 03/06/2015 [facility] Diastolic (mm Hg) 86 03/06/2015 [facility] Respitory Rate 10 03/06/2015 [facility] Heart Rate 86 03/06/2015 [facility] Temperature Oral (F) 98.1 F 03/06/2015 [facility] Temperature Oral (F) 98.0 F 03/06/2015 [facility] Height 160.02 cm 03/06/2015 [facility] Weight 59.091 03/06/2015 [facility] BMI Calculated 23.08 03/06/2015 [facility] Heart Rate 97 01/27/2015 [facility] Respitory Rate 18 01/27/2015 [facility] Temperature Oral (F) 98.2 F 01/27/2015 [facility] Systolic (mm Hg) 105 01/27/2015 [facility] Diastolic (mm Hg) 71 01/27/2015 [facility] Heart Rate 93 01/27/2015 [facility] Temperature Oral (F) 98.0 F 01/27/2015 [facility] Respitory Rate 20 01/27/2015 [facility] Systolic (mm Hg) 113 01/27/2015 [facility] Diastolic (mm Hg) 75 01/27/2015 [facility] Respitory Rate 20 01/27/2015 [facility] Systolic (mm Hg) 102 01/27/2015 [facility] Diastolic (mm Hg) 56 01/27/2015 [facility] Temperature Oral (F) 98.4 F 01/27/2015 [facility] Heart Rate 118 01/27/2015 [facility] Weight 59.091 01/25/2015 [facility] BMI Calculated 23.08 01/25/2015 [facility] Height 160.02 cm 01/25/2015 [facility] Diastolic (mm Hg) 58 08/25/2014 [facility] Systolic (mm Hg) 107 08/25/2014 [facility] Respitory Rate 17 08/25/2014 [facility] Systolic (mm Hg) 109 08/25/2014 [facility] Diastolic (mm Hg) 69 08/25/2014 [facility] Diastolic (mm Hg) 64 08/25/2014 [facility] Respitory Rate 12 08/25/2014 [facility] Systolic (mm Hg) 105 08/25/2014 [facility] Respitory Rate 11 08/25/2014 [facility] Heart Rate 96 08/25/2014 [facility] Temperature Oral (F) 97.5 F 08/25/2014 [facility] BMI Calculated 23.36 08/25/2014 [facility] Weight 59.818 08/25/2014 [facility] Height 160.02 cm 08/25/2014 [facility] Heart Rate 75 06/26/2014 [facility] Temperature Oral (F) 97.7 F 06/26/2014 [facility] Systolic (mm Hg) 99 06/26/2014 [facility] Diastolic (mm Hg) 61 06/26/2014 [facility] Respitory Rate 16 06/26/2014 [facility] Systolic (mm Hg) 95 06/25/2014 [facility] Heart Rate 63 06/25/2014 [facility] Respitory Rate 16 06/25/2014 [facility] Diastolic (mm Hg) 52 06/25/2014 [facility] Temperature Oral (F) 98.0 F 06/25/2014 [facility] Weight 58.182 06/25/2014 [facility] BMI Calculated 22.72 06/25/2014 [facility] Height 160.02 cm 06/25/2014 [facility] Temperature Oral (F) 98.3 F 06/25/2014 [facility] Heart Rate 85 06/25/2014 [facility] Diastolic (mm Hg) 69 06/25/2014 [facility] Systolic (mm Hg) 104 06/25/2014 [facility] Respitory Rate 16 06/25/2014 [facility] Diastolic (mm Hg) 68 04/18/2014 [facility] Systolic (mm Hg) 100 04/18/2014 [facility] Respitory Rate 16 04/18/2014 [facility] Temperature Oral (F) 97.8 F 04/18/2014 [facility] Heart Rate 95 04/18/2014 [facility] Temperature Oral (F) 99.2 F 04/18/2014 [facility] Heart Rate 101 04/18/2014 [facility] Diastolic (mm Hg) 64 04/18/2014 [facility] Respitory Rate 16 04/18/2014 [facility] Systolic (mm Hg) 96 04/18/2014 [facility] Respitory Rate 16 04/17/2014 [facility] Temperature Oral (F) 97.9 F 04/17/2014 [facility] Heart Rate 96 04/17/2014 [facility] Systolic (mm Hg) 102 04/17/2014 [facility] Diastolic (mm Hg) 70 04/17/2014 [facility] BMI Calculated 21.66 04/15/2014 [facility] Weight 55.455 04/15/2014 [facility] Height 160.02 cm 04/15/2014 [facility] Weight 58.182 04/14/2014 [facility] BMI Calculated 22.72 04/14/2014 [facility] Height 160.02 cm 04/14/2014 [facility] Weight 55.727 04/13/2014 [facility] BMI Calculated 21.76 04/13/2014 [facility] Height 160.02 cm 04/13/2014 [facility] Temperature Oral (F) 98.2 F 11/21/2013 [facility] Heart Rate 91 11/21/2013 [facility] Respitory Rate 15 11/21/2013 [facility] Diastolic (mm Hg) 61 11/21/2013 [facility] Systolic (mm Hg) 97 11/21/2013 [facility] Temperature Oral (F) 97.9 F 11/21/2013 [facility] Diastolic (mm Hg) 62 11/21/2013 [facility] Systolic (mm Hg) 99 11/21/2013 [facility] Respitory Rate 15 11/21/2013 [facility] Heart Rate 98 11/21/2013 [facility] Systolic (mm Hg) 114 11/21/2013 [facility] Diastolic (mm Hg) 68 11/21/2013 [facility] Heart Rate 105 11/21/2013 [facility] Temperature Oral (F) 99.6 F 11/21/2013 [facility] Respitory Rate 15 11/21/2013 [facility] BMI Calculated 23.08 11/19/2013 [facility] Height 160.02 cm 11/19/2013 [facility] Weight 59.091 11/19/2013 [facility] Weight 60.000 08/16/2012 [facility] Diastolic (mm Hg) 64 02/27/2012 [facility] Systolic (mm Hg) 109 02/27/2012 [facility] Respitory Rate 21 02/27/2012 [facility] Diastolic (mm Hg) 71 02/27/2012 [facility] Respitory Rate 22 02/27/2012 [facility] Systolic (mm Hg) 110 02/27/2012 [facility] Diastolic (mm Hg) 71 02/27/2012 [facility] Systolic (mm Hg) 110 02/27/2012 [facility] Respitory Rate 29 02/27/2012 [facility] Weight 62.700 02/27/2012 [facility] Height 162.00 cm 02/27/2012 [facility] Height 160.02 cm 01/10/2012 [facility] Weight 60.000 01/10/2012 [facility] Weight 59.545 12/19/2011 [facility] Height 160.02 cm 12/19/2011 [facility] Encounters Location Location Details Encounter Type Encounter Number Reason For Visit Attending Provider ADM Date DC Date Status Source [facility] Emergency [id number] FIDELINA PATI 12/19/2011 12/19/2011 Active [facility] Emergency [id number] LEFT SIDE PAIN FIDELINA KRUEGER 01/10/2012 01/10/2012 Active [facility] Emergency [id number] MILAGROS SHAVONNE 08/16/2012 08/16/2012 Active [facility] [id number] _MAPID:[id number] Fidelina Wright 11/06/2013 11/07/2013 [facility] Inpatient [id number] _[id number] Bossman Oconnor 11/19/2013 11/22/2013 [facility] Inpatient [id number] Sharla Germain 04/13/2014 04/18/2014 [facility] [id number] Дмитрий Wakefield 06/03/2014 06/04/2014 [facility] [id number] Jorge Mahajan 06/25/2014 06/26/2014 [facility] Outpatient [id number] Nakul Sharma 08/07/2014 08/08/2014 [facility] OBS Day Surgery [id number] Nakul Sharma 08/25/2014 08/26/2014 [facility] Inpatient [id number] Sharla Silvais 01/26/2015 01/27/2015 [facility] [id number] Faith Candelaria 03/06/2015 03/06/2015 [facility] Inpatient [id number] Chavez Feldman 06/28/2015 06/29/2015 [facility] Emergency [id number] Jocy Daiana 07/11/2016 07/11/2016 [facility] Emergency [id number] Cj Blackman 07/13/2016 07/13/2016 [facility] Emergency [id number] Faith Noriega 07/13/2016 07/13/2016 [facility] Observation [id number] William Melvin Jr 08/05/2016 08/06/2016 [facility] DS [id number] DSU/ ABD PAIN ESSAM IMSEIS Active [facility] Procedures Procedure Code Date Perfomer Comments Source Tonsillectomy [id number] [facility] Tonsillectomy [id number] [facility] Tonsillectomy [id number] [facility]
[2018-07-17] MEDS ORDERED: KETOROLAC TROMETHAMINE 30 MG/ML VIAL IV STA (20:51)
[2018-07-17] MEDS ORDERED: ONDANSETRON HCL INJ 2 MG/ML VIAL IV STA (20:51)
[2018-07-17] MEDS ORDERED: SODIUM CHLORIDE 0.9% 1000ML 1,000 ML IV SCH (21:00)
--- NOTE | 2018-07-17 21:40 | Diagnostic Imaging Report ---
Exam: PA and lateral view of the chest Indication: Cough, fever, vomiting Comparison: PA and lateral view of the chest April 13, 2016 next Findings: The lungs are clear. No pleural effusions or pneumothorax. Normal appearance of the cardiomediastinal silhouette and bones. Impression: Normal appearance of the chest. Signed by: Dr. Saima Torres M.D. on 07/17/2018 9:36 PM
[2018-07-17] MEDS ORDERED: HYDROCODONE/APAP 5MG-325MG TAB PO ONE (22:00)
[2018-07-17 22:19] VITALS: BP 112/69
== END 2018-07-17 22:50 | disposition home or self-care (01) ==
LOC: FSED 20:27
DX: R50.9 Fever, unspecified (principal); R05 Cough; R11.2 Nausea with vomiting, unspecified; J00 Acute nasopharyngitis [common cold]; B34.9 Viral infection, unspecified; G43.909 Migraine, unspecified, not intractable, without status migrainosus; F31.9 Bipolar disorder, unspecified
CPT/HCPCS: 71046; 80053; 85025; 99284; J1885; J2405; J7030

== ENCOUNTER 2018-08-19 19:28 | Emergency (ER) | payer OTHER ==
[~2018-08-19] VITALS: Ht 160 cm; Wt 73.0 kg
--- OUTSIDE RECORDS SUMMARY | 2018-08-19 19:30 | XMS REPORT | Clinical Summary ---
Author Author [facility] Address Unknown Phone Unavailable Care Team Providers Care Rug Hooker Name Role Phone Asked, No Pcp PCP Unavailable Allergies Comments Active Allergy Reactions Severity Noted Date Ciprofloxacin 10/02/2016 Dexamethasone 10/02/2016 Iodine 10/02/2016 Medications End Date Status Medication Sig Dispensed Refills Start Date Active divalproex (DEPAKOTE) 250 Take 500 mg 0 MG EC tablet by mouth 3 (three) times a day. Active PARoxetine (PAXIL) 20 MG Take 20 mg by 0 tablet mouth every morning. Active OLANZapine (ZYPREXA) 5 MG Take 5 mg by 0 tablet mouth nightly. Active topiramate (TOPAMAX) 100 Take 100 mg 0 MG tablet by mouth 2 (two) times a day. Active butalbital-acetaminophen- Take 1 tablet 0 caff (FIORICET, ESGIC) by mouth 50-325-40 mg per tablet every 4 (four) hours as needed for headaches. Active LORAZepam (ATIVAN) 1 MG Take 1 mg by 0 tablet mouth every 6 (six) hours as needed for anxiety. Active meclizine (ANTIVERT) 12.5 Take 12.5 mg 0 mg tablet by mouth 3 (three) times a day as needed for dizziness. Active metoclopramide (REGLAN) 5 Take 5 mg by 0 MG tablet mouth 4 (four) times a day. Active Problems Problem Noted Date Nausea 12/14/2016 Family History Medical History Relation Name Comments Breast cancer Maternal Grandmother Cerebral aneurysm Maternal Grandmother Migraines Maternal Grandmother Diabetes Mother Migraines Mother Relation Name Status Comments Maternal Grandmother Mother Social History Date Tobacco Use Types Packs/Day Years Used Light Tobacco Smoker Alcohol Use Drinks/Week oz/Week Comments Yes occasional Sex Assigned at Date Recorded Not on file Industry Job Start Date Occupation Not on file Not on file Not on file Travel End Travel History Travel Start No recent travel history available. Last Filed Vital Signs Not on file Plan of Treatment Health Maintenance Due Date Last Done Comments CHLAMYDIA SCREENING 2010 CERVICAL CANCER SCREENING 2015 INFLUENZA VACCINE 04/17/2018 05/17/2016, 07/12/2015, 10/14/2012, Additional history exists HEPATITIS B VACCINES Aged Out No longer eligible based on patient's age to complete this topic IPV VACCINES Aged Out No longer eligible based on patient's age to complete this topic MENINGOCOCCAL VACCINE Aged Out No longer eligible based on patient's age to complete this topic Implants Device Identifier Shelf Expiration Date Model / Serial / Lot Implanted Type Area Manufactur er Iud Results Not on fileafter 08/18/2017 Insurance Payer Benefit Subscriber ID Type Phone Address Plan / Group AETNA AETNA PPO xxxxxxxxxx PPO OPEN CHOICE Advance Directives Patient has advance care planning documents on file. For more information, kiersten gordillo contact: Randy Hendricks [address] [facility] [place] [address]
--- OUTSIDE RECORDS SUMMARY | 2018-08-19 19:33 | XMS REPORT | Continuity of Care Document ---
Author Author Jersey anderson Organization Interface Address Unknown Phone Unavailable Problems Problem Status Onset Date Classification Date Reported Comments Source INTRACTABLE MIGRAINE PAIN Active 08/04/2016 [facility] Discharge Diagnosis: Headache 07/13/2016 07/16/2016 [place] HEADACHE Active 07/12/2016 [facility] MIGRAINE Active 07/12/2016 [facility] Discharge Diagnosis: Migraine 07/11/2016 07/14/2016 [facility] Discharge Diagnosis: Atypical chest pain 07/11/2016 07/14/2016 [facility] CHEST PAIN Active 07/11/2016 [facility] PYELONEPHRITIS, NEW DX OF Active 06/27/2015 [facility] Discharge Diagnosis: Abdominal pain, acute 03/06/2015 03/09/2015 [facility] H/A Active 01/25/2015 [facility] UNK Active 08/20/2014 [facility] ICD 727.04 719.43 / CPT [id number] Active 08/20/2014 [facility] 923.21=CONTUSION OF LEFT WRIST/842.00=LE Active 08/03/2014 [facility] Discharge Diagnosis: Nausea and vomiting in adult 06/25/2014 06/28/2014 [facility] Discharge Diagnosis: Abdominal pain 06/25/2014 06/28/2014 [facility] Discharge Diagnosis: Acute gastritis 06/25/2014 06/28/2014 [facility] ABDOMINAL PAIN/NAUSEA OR VOMITING Active 06/25/2014 [facility] POSS APPENDICITIS Active 04/13/2014 [facility] BACTERIAL VAGINOSIS,ACUTE UTI,MICROCTIC Active 04/13/2014 [facility] ABDOMINAL PAIN Active 04/13/2014 [facility] MENINGITIS Active 11/18/2013 [facility] HEADACHE, FEVER, LEUKOCYTOSIS Active 11/18/2013 [facility] VOMITING/HEADACHE Active 08/16/2012 [facility] DSU/ ABD PAIN Active 01/17/2012 [facility] LEFT SIDE PAIN Active 01/10/2012 [facility] Final: Migraine without Aura, without Mention of Intractable Migraine, without Mention of Status Migrainosus 11/14/2013 [facility] Pain Active Problem 08/18/2012 [facility] Seizure disorder Active Problem 08/18/2012 [facility] Acid reflux Active Problem 08/09/2016 [facility], [facility] IBS (<span [id number]">Confirmed</span>) Resolved Problem 08/09/2016 [facility], [facility] Migraines Resolved Problem 08/09/2016 [facility], [facility] Pain Active Problem 08/09/2016 [facility] Seizure disorder Active Problem 11/23/2013 [facility] Pain Active Problem 07/15/2016 [facility] Anxiety Active Problem 07/16/2016 [facility] Anxiety about loss of control Active Problem 07/16/2016 [facility] Depression Resolved Problem 07/16/2016 [facility] 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 [facility] Pain Active Problem 07/16/2016 [facility] Anxiety Active Problem 08/09/2016 [facility] Anxiety about loss of control Active Problem 08/09/2016 [facility] Depression Resolved Problem 08/09/2016 [facility] 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/2016 [facility] Hypotension, postural Resolved Problem 08/09/2016 [facility] MENINGITIS NOS Active [facility] URIN TRACT INFECTION NOS Active [facility] CONTUSION OF WRIST Active [facility] SPRAIN OF WRIST NOS Active [facility] JOINT PAIN-FOREARM Active [facility] HEADACHE Active [facility] ACUTE TUBULO-INTERSTITIAL NEPHRITIS Active [facility] Medications Medication Details Route Status Patient Instructions Ordering Provider Order Date Source gabapentin 300 MG Oral Capsule 300 mg, 1 cap, Route: PO, Drug form: CAP, BID, Dosing Weight 65.455, kg, Start date: 08/05/16 19:11:00 NURSE CARE MANAGER, Duration: 30 day, Stop date: 09/04/16 17:00:00 CSTNotes: (Same as: Neurontin) No Longer Active 08/06/2016 [facility] Valproic Acid 100 MG/ML Injectable Solution [Depacon] 500 mg, 5 mL, Route: IVPB, Drug form: INJ, ONCE, Dosing Weight 65.455, kg, Priority: NOW, Start date: 08/05/16 12:52:00 NURSE CARE MANAGER, Stop date: 08/05/16 12:52:00 CSTNotes: Dilute in at least 50ml D5W or NS. Infusion rate=20 mg/min (Same As: Depacon) Inactive 08/05/2016 [facility] Solu-Medrol 125 mg, 2 mL, Route: IVP, Drug form: INJ, ONCE, Dosing Weight 65.455, kg, Priority: NOW, Start date: 08/05/16 12:52:00 NURSE CARE MANAGER, Stop date: 08/05/16 12:52:00 CSTNotes: (Same as:Solu-MEDROL, A-Methapred) Inactive 08/05/2016 [facility] ketOROLAC 30 mg/mL injectable solution 30 mg, 1 mL, Route: IVP, Drug form: INJ, Q6H, Dosing Weight 65.455, kg, PRN Pain Score 4-6, Priority: NOW, Start date: 08/05/16 12:52:00 NURSE CARE MANAGER, Duration: 4 day, Stop date: 08/09/16 12:51:00 CSTNotes: (Same as:Toradol) IV bolus must be given >15 seconds. Give IM administration slowly and deeply into the muscle. Not for use > 4 days MEDICATION WASTE Product Size: 30 mg Product Wasted: ___ mg No Longer Active 08/05/2016 [facility] Dilaudid 0.5 mg, 0.5 mL, Route: IVP, Drug form: INJ, Q6H, Dosing Weight 65.455, kg, PRN Pain Score 7-10, Start date: 08/05/16 12:51:00 NURSE CARE MANAGER, Duration: 30 day, Stop date: 09/04/16 12:50:00 NURSE CARE MANAGER No Longer Active 08/05/2016 [facility] ketOROLAC 30 mg/mL injectable solution 30 mg, 1 mL, Route: IVP, Drug form: INJ, ONCE, Dosing Weight 65.455, kg, Start date: 08/05/16 1:45:00 NURSE CARE MANAGER, Duration: 1 doses or times, Stop date: 08/05/16 1:45:00 CSTNotes: (Same as:Toradol) IV bolus must be given >15 seconds. Give IM administration slowly and deeply into the muscle. Not for use > 4 days MEDICATION WASTE Product Size: 30 mg Product Wasted: ___ mg Inactive 08/05/2016 [facility] Promethazine 12.5 mg, 0.5 mL, Route: IVPB, Q8H, Dosing Weight 65.455, kg, PRN as needed for nausea/vomiting, Start date: 08/05/16 1:14:00 NURSE CARE MANAGER, Duration: 30 day, Stop date: 09/04/16 1:13:00 CSTNotes: Do not give IV push. (Same as: Phenergan) No Longer Active 08/05/2016 [facility] ketOROLAC 30 mg/mL injectable solution 30 mg, 1 mL, Route: IVP, Drug form: INJ, ONCE, Dosing Weight 65.455, kg, Start date: 08/05/16 1:12:00 NURSE CARE MANAGER, Duration: 1 doses or times, Stop date: 08/05/16 1:12:00 CSTNotes: (Same as:Toradol) IV bolus must be given >15 seconds. Give IM administration slowly and deeply into the muscle. Not for use > 4 days MEDICATION WASTE Product Size: 30 mg Product Wasted: ___ mg Inactive 08/05/2016 [facility] Saline Flush 0.9% 10 ml, Route: IVP, Drug Form: INJ, Dosing Weight 65.455, kg, PRN, PRN Line Flush, Start date: 08/04/16 21:17:00 NURSE CARE MANAGER, Duration: 30 day, Stop date: 09/03/16 21:16:00 CSTNotes: (Same as: BD Posiflush) No Longer Active 08/05/2016 [facility] Glucose 50 MG/ML / Sodium Chloride 0.154 MEQ/ML Injectable Solution 1,000 mL, Rate: 125 ml/hr, Infuse over: 8 hr, Route: IV, Dosing Weight 65.455 kg, Total Volume: 1,000, Start date: 08/04/16 21:17:00 NURSE CARE MANAGER, Duration: 30 day, Stop date: 09/03/16 21:16:00 NURSE CARE MANAGER No Longer Active 08/05/2016 [facility] Ondansetron 4 mg, 2 mL, Route: IVP, Drug form: INJ, Q6H, Dosing Weight 65.455, kg, PRN Nausea & Vomiting, Start date: 08/04/16 21:17:00 NURSE CARE MANAGER, Duration: 30 day, Stop date: 09/03/16 21:16:00 CSTNotes: (Same as: Chio) MEDICATION WASTE Product Size: 4 mg Product Wasted: ___ mg No Longer Active 08/05/2016 [facility] Acetaminophen 325 MG / Hydrocodone Bitartrate 5 MG Oral Tablet 2 tab, Route: PO, Drug Form: TAB, Dosing Weight 65.455, kg, Q4H, PRN Pain Score 7-10, Start date: 08/04/16 21:17:00 NURSE CARE MANAGER, Duration: 30 day, Stop date: 09/03/16 21:16:00 CSTNotes: (Same as: [place] 325/5) Do not exceed 4gm/day of acetaminophen. No Longer Active 08/05/2016 [facility] Morphine 2 mg, Route: IVP, Q4H, Dosing Weight 65.455, kg, PRN Pain Score 7-10, Start date: 08/04/16 21:17:00 NURSE CARE MANAGER, Duration: 30 day, Stop date: 09/03/16 21:16:00 NURSE CARE MANAGER Inactive 08/05/2016 [facility] Dilaudid 0.5 mg, 0.5 mL, Route: IVP, Drug form: INJ, Q3H, Dosing Weight 65.455, kg, PRN Pain Score 7-10, Start date: 08/04/16 21:11:00 NURSE CARE MANAGER, Duration: 30 day, Stop date: 09/03/16 21:10:00 NURSE CARE MANAGER No Longer Active 08/05/2016 [facility] topiramate 50 mg oral tablet 50 mg=1 tab, PO, BID, # 60 tab, 1 Refill(s) Active 08/05/2016 [facility] quetiapine 100 MG Oral Tablet [Seroquel] 100 mg=1 tab, PO, Bedtime, 0 Refill(s) Active 08/05/2016 [facility] quetiapine 25 MG Oral Tablet [Seroquel] 25 mg=1 tab, PO, Daily, 0 Refill(s) Active 08/05/2016 [facility] Prozac 30 mg, PO, Daily, 0 Refill(s) Active 08/05/2016 [facility] Phenergan 12.5 mg, Route: IVPB, ONCE, Dosing Weight 60, kg, Priority: STAT, Start date: 07/13/16 1:38:00 CDT, Stop date: 07/13/16 1:38:00 CDT Inactive 07/13/2016 [facility] Diphenhydramine 25 mg, 0.5 mL, Route: IVP, Drug form: INJ, ONCE, Dosing Weight 60, kg, Priority: STAT, Start date: 07/13/16 1:06:00 CDT, Stop date: 07/13/16 1:06:00 CDTNotes: (Same as: Benadryl) Inactive 07/13/2016 [facility] Metoclopramide 10 mg, 2 mL, Route: IVP, Drug form: INJ, ONCE, Dosing Weight 60, kg, Priority: STAT, Start date: 07/13/16 1:06:00 CDT, Stop date: 07/13/16 1:06:00 CDTNotes: (Same as: Reglan) Inactive 07/13/2016 [facility] Sodium Chloride 0.154 MEQ/ML Injectable Solution 1,000 mL, 2,000 ml/hr, Infuse Over: 30 minutes, Route: IV, 1,000, Drug form: INJ, ONCE, Priority: STAT, Dosing Weight 60 kg, Start date: 07/13/16 1:06:00 CDT, Duration: 1 doses or times, Stop date: 07/13/16 1:06:00 CDT Inactive 07/13/2016 [facility] Morphine 4 mg, Route: IVP, ONCE, Dosing Weight 62.727, kg, Priority: STAT, Start date: 07/11/16 4:06:00 CDT, Stop date: 07/11/16 4:06:00 CDT Inactive 07/11/2016 [facility] Phenergan 12.5 mg, 0.5 mL, Route: IVPB, ONCE, Dosing Weight 62.727, kg, Priority: STAT, Start date: 07/11/16 3:01:00 CDT, Stop date: 07/11/16 3:01:00 CDTNotes: Do not give IV push. (Same as: Phenergan) Inactive 07/11/2016 [facility] Dexamethasone 10 mg, Route: IVP, ONCE, Dosing Weight 62.727, kg, Priority: STAT, Start date: 07/11/16 2:35:00 CDT, Stop date: 07/11/16 2:35:00 CDT Inactive 07/11/2016 [facility] Diphenhydramine 25 mg, Route: IVP, ONCE, Dosing Weight 62.727, kg, Priority: STAT, Start date: 07/11/16 2:34:00 CDT, Stop date: 07/11/16 2:34:00 CDT Inactive 07/11/2016 [facility] Metoclopramide 10 mg, Route: IVP, Drug form: INJ, ONCE, Dosing Weight 62.727, kg, Priority: STAT, Start date: 07/11/16 2:34:00 CDT, Stop date: 07/11/16 2:34:00 CDT Inactive 07/11/2016 [facility] Sodium Chloride 0.154 MEQ/ML Injectable Solution 1,000 mL, 2,000 ml/hr, Infuse Over: 30 minutes, Route: IV, ONCE, Priority: STAT, Dosing Weight 62.727 kg, Start date: 07/11/16 2:34:00 CDT, Duration: 1 doses or times, Stop date: 07/11/16 2:34:00 CDT Inactive 07/11/2016 [facility] cefpodoxime 100 mg, 1 tab, Route: PO, Drug form: TAB, [id number], Dosing Weight 59.091, kg, Start date: 06/29/15 12:00:00, Duration: 30 day, Stop date: 07/29/15 0:00:00Notes: With food. (Same As: Vantin) Inactive 06/29/2015 [facility] Multivitamins with Folic Acid 1 mg oral tablet 1 mg=1 tab, PO, Daily, # 90 tab, 3 Refill(s) Active 06/29/2015 [facility] cefpodoxime 100 mg oral tablet 100 mg, PO, [id number], # 24 tab, 0 Refill(s) Active 06/29/2015 [facility] Potassium Chloride 20 MEQ Extended Release Tablet 20 mEq, 1 tab, Route: PO, Drug form: ERTAB, ONCE, Dosing Weight 59.091, kg, Start date: 06/29/15 11:35:00, Stop date: 06/29/15 11:35:00Notes: (Same as: K-Dur 20) "Do Not Crush" With food and full glass of water Inactive 06/29/2015 [facility] Phenergan 25 mg, 1 mL, Route: IVPB, Q4H, Dosing Weight 59.091, kg, PRN Nausea & Vomiting, Start date: 06/29/15 3:56:00, Duration: 30 day, Stop date: 07/29/15 3:55:00Notes: Do not give IV push. (Same as: Phene rgan) Inactive 06/29/2015 [facility] Acetaminophen 650 mg, 20.3 mL, Route: PO, Drug form: LIQ, Q6H, Dosing Weight 59.091, kg, PRN Pain Score 1-3, Start date: 06/28/15 18:51:00, Duration: 30 day, Stop date: 07/28/15 18:50:00Notes: Max [id number]=5570ac/day (4 gm/day). (Same as: Tylenol) Inactive 06/28/2015 [facility] Tylenol 650 mg, 2 tab, Route: PO, Drug form: TAB, Q6H, Dosing Weight 59.091, kg, PRN Pain 1-3/Temp > 100.4 F, Start date: 06/28/15 17:34:00, Stop date: 07/28/15 17:33:00, fever, pain, headacheNotes: Do not e xceed 4 gm/day. (Same as: Tylenol) No Longer Active 06/28/2015 [facility] Zofran 4 mg, 2 mL, Route: IV, Drug form: INJ, Q4H, Dosing Weight 59.091, kg, PRN Nausea, Start date: 06/28/15 12:33:00, Duration: 30 day, Stop date: 07/28/15 12:32:00Notes: (Same as: Zofran) MEDICATION WASTE Product Size: 4 mg Product Wasted: ___ mg No Longer Active 06/28/2015 [facility] Multivitamins with Folic Acid 1 mg oral tablet 1 tab, Route: PO, Drug Form: TAB, Dosing Weight 59.091, kg, Daily, Start date: 06/28/15 9:00:00, Duration: 30 day, Stop date: 07/27/15 9:00:00 No Longer Active 06/28/2015 [facility] Zofran 4 mg, 2 mL, Route: IV, Drug form: INJ, Q8H, Dosing Weight 59.091, kg, PRN Nausea, Start date: 06/28/15 4:25:00, Duration: 30 day, Stop date: 07/28/15 4:24:00Notes: (Same as: Zofran) MEDICATION WASTE Product Size: 4 mg Product Wasted: ___ mg Inactive 06/28/2015 [facility] Ceftriaxone 1 gm, Route: IVPB, [id number], Dosing Weight 59.091, kg, Start date: 06/28/15 4:00:00, Duration: 30 day, Stop date: 07/27/15 4:00:00Notes: (Same As: Rocephin). Use with 100ml NS mini-bag PLUS and infuse o simon 30 min MEDICATION WASTE Product Size: 1000 mg Product Wasted: ___ mg No Longer Active 06/28/2015 [facility] Sodium Chloride 0.154 MEQ/ML Injectable Solution 1,000 mL, Rate: 100 ml/hr, Infuse over: 10 hr, Route: IV, Dosing Weight 59.091 kg, Total Volume: 1,000, Start date: 06/28/15 3:07:00, Duration: 30 day, Stop date: 07/28/15 3:06:00 No Longer Active 06/28/2015 [facility] Saline Flush 0.9% 10 ml, Route: IVP, Drug Form: INJ, Dosing Weight 59.091, kg, PRN, PRN Line Flush, Start date: 06/28/15 3:07:00, Duration: 30 day, Stop date: 07/28/15 2:06:00Notes: (Same as: BD Posiflush) No Longer Active 06/28/2015 [facility] Morphine 4 mg, Route: IVP, ONCE, Dosing Weight 59.091, kg, Priority: STAT, Start date: 03/06/15 2:22:00, Stop date: 03/06/15 2:22:00 Inactive 03/06/2015 [facility] Diphenhydramine 25 mg, Route: IVP, ONCE, Dosing Weight 59.091, kg, Priority: STAT, Start date: 03/06/15 2:09:00, Stop date: 03/06/15 2:09:00 Inactive 03/06/2015 [facility] Diphenhydramine 25 mg, Route: IVP, ONCE, Dosing Weight 59.091, kg, Priority: STAT, Start date: 03/06/15 2:08:00, Stop date: 03/06/15 2:08:00 Inactive 03/06/2015 [facility] methylPREDNISolone SODium SUCCinate 125 mg, Route: IVP, ONCE, Dosing Weight 59.091, kg, Priority: STAT, Start date: 03/06/15 2:08:00, Stop date: 03/06/15 2:08:00 Inactive 03/06/2015 [facility] Ondansetron 4 mg, 2 mL, Route: IVP, Drug form: INJ, ONCE, Dosing Weight 59.091, kg, Priority: STAT, Start date: 03/05/15 23:51:00, Stop date: 03/05/15 23:51:00Notes: (Same as: Chio) MEDICATION WASTE Product Size: 4 mg Product Wasted: ___ mg No Longer Active 03/06/2015 [facility] Morphine 4 mg, 2 mL, Route: IVP, Drug form: INJ, ONCE, Dosing Weight 59.091, kg, Priority: STAT, Start date: 03/05/15 23:51:00, Stop date: 03/05/15 23:51:00Notes: (Same as:MORPhine Sulfate) No Longer Active 03/06/2015 [facility] Amitriptyline 25 mg, 1 tab, Route: PO, Drug form: TAB, Bedtime, Dosing Weight 59.091, kg, Start date: 01/27/15 21:00:00, Duration: 30 day, Stop date: 02/25/15 21:00:00Notes: (Same as: Elavil) Inactive 01/28/2015 [facility] gabapentin 300 MG Oral Capsule 300 mg, 1 cap, Route: PO, BID, Dosing Weight 59.091, kg, Start date: 01/27/15 17:00:00, Duration: 30 day, Stop date: 02/26/15 9:00:00 Inactive 01/27/2015 [facility] 24 HR tramadol hydrochloride 100 MG Extended Release Tablet 100 mg=1 tab, PO, Daily, PRN pain, # 30 tab, 0 Refill(s) Active 01/27/2015 [facility] tizanidine 4 mg oral tablet 4 mg=1 tab, PO, Q8H, PRN Other -See Comment | back pain, # 30 tab, 0 Refill(s) Active 01/27/2015 [facility] LORazepam 0.5 mg oral tablet 0.5 mg=1 tab, PO, Q8H, PRN Agitation, # 30 tab, 0 Refill(s) Inactive 01/27/2015 [facility] gabapentin 300 MG Oral Capsule 300 mg=1 cap, PO, BID, # 60 cap, 0 Refill(s) Active 01/27/2015 [facility] amitriptyline 25 mg oral tablet 25 mg=1 tab, PO, Bedtime, # 30 tab, 0 Refill(s) Active 01/27/2015 [facility] Promethazine Hydrochloride 25 MG Oral Tablet [Phenergan] 25 mg=1 tab, PO, Q6H, PRN Nausea, X 4 day, # 15 tab, 0 Refill(s) Active 01/27/2015 [facility] tizanidine 4 mg, 1 tab, Route: PO, Drug form: TAB, Q8H, Dosing Weight 59.091, kg, PRN Other -See Comment, Start date: 01/27/15 9:26:00, Duration: 30 day, Stop date: 02/26/15 9:25:00, back painNotes: (Same As: Z anaflex) Inactive 01/27/2015 [facility] Morphine 2 mg, 1 mL, Route: IVP, Drug form: INJ, Q4H, Dosing Weight 59.091, kg, PRN Pain Score 7-10, Start date: 01/27/15 9:25:00, Duration: 30 day, Stop date: 02/26/15 9:24:00Notes: (Same as:MORPhine Sulfate) Inactive 01/27/2015 [facility] gabapentin 300 MG Oral Capsule 300 mg, 1 cap, Route: PO, Drug form: CAP, BID, Dosing Weight 59.091, kg, Priority: NOW, Start date: 01/27/15 9:24:00, Duration: 30 day, Stop date: 02/26/15 9:00:00Notes: (Same as: Neurontin) Inactive 01/27/2015 [facility] Acetaminophen 325 mg, Route: PO, Q4H, Dosing Weight 59.091, kg, Start date: 01/26/15 20:00:00, Duration: 30 day, Stop date: 02/25/15 16:00:00 Inactive 01/27/2015 [facility] Acetaminophen 300 MG / butalbital 50 MG / Caffeine 40 MG Oral Capsule [Fioricet] 1 tab, Route: PO, Drug Form: TAB, Dosing Weight 59.091, kg, Q6H, PRN Headache 1-5, Start date: 01/26/15 10:47:00, Duration: 30 day, Stop date: 02/25/15 10:46:00Notes: (piedxmggprkto-sbexvzccvb-nnlcjduy 325-50-40mg) Do not exceed 4 gm/day of acetaminophen. (Same as: Esgic, Fioricet) No Longer Active 01/26/2015 [facility] methylPREDNISolone SODium SUCCinate 125 mg, 2 mL, Route: IV, Drug form: INJ, ONCE, Dosing Weight 59.091, kg, Priority: NOW, Start date: 01/26/15 10:47:00, Stop date: 01/26/15 10:47:00Notes: (Same as:Solu-MEDROL, A- Methapred) Inactive 01/26/2015 [facility] Phenergan 12.5 mg, 0.5 mL, Route: IVPB, Q8H, Dosing Weight 59.091, kg, PRN Nausea, Priority: NOW, Start date: 01/26/15 10:47:00, Duration: 30 day, Stop date: 02/25/15 10:46:00Notes: Do not give IV push. (Same as: Phenergan) No Longer Active 01/26/2015 [facility] ketOROLAC 30 mg/mL injectable solution 30 mg, [...] Wasted: ___ mg No Longer Active 01/26/2015 [facility] Morphine 2 mg, 1 mL, Route: IVP, Drug form: INJ, Q2H, Dosing Weight 59.091, kg, PRN Pain Score 7-10, Start date: 01/26/15 9:53:00, Duration: 30 day, Stop date: 02/25/15 9:52:00Notes: (Same as:MORPhine Sulfate) No Longer Active 01/26/2015 [facility] Acetaminophen 650 mg, 2 tab, Route: PO, Drug form: TAB, Q4H, Dosing Weight 59.091, kg, PRN For Temp > 100.4 F, Start date: 01/26/15 9:51:00, Duration: 30 day, Stop date: 02/25/15 9:50:00Notes: Do not exceed 4 gm/day. (Same as: Tylenol) No Longer Active 01/26/2015 [facility] Milk of Magnesia 30 mL, Route: PO, Drug Form: SUSP, Dosing Weight 59.091, kg, Q3H, PRN Constipation, Start date: 01/26/15 9:51:00, Duration: 2 doses or times, Stop date: Limited # of timesNotes: (Same as: Milk of Magnesia, MOM) No Longer Active 01/26/2015 [facility] Temazepam 15 mg, 1 cap, Route: PO, Drug form: CAP, Bedtime, Dosing Weight 59.091, kg, PRN Insomnia, Start date: 01/26/15 9:51:00, Duration: 30 day, Stop date: 02/25/15 9:50:00Notes: (Same As: Restoril) No Longer Active 01/26/2015 [facility] Lorazepam 0.5 mg, 1 tab, Route: PO, Drug form: TAB, Q8H, Dosing Weight 59.091, kg, PRN Agitation, Start date: 01/26/15 9:51:00, Duration: 30 day, Stop date: 02/25/15 9:50:00Notes: (Same as: Ativan) No Longer Active 01/26/2015 [facility] Dextromethorphan Hydrobromide 2 MG/ML / Guaifenesin 20 MG/ML Oral Solution 10 mL, Route: PO, Drug Form: SYRP, Dosing Weight 59.091, kg, Q4H, PRN Cough, Start date: 01/26/15 9:51:00, Duration: 30 day, Stop date: 02/25/15 9:50:00Notes: (dextromethorphan-guaifenesin 10-100mg/5ml 10 ml oral SOLN ud) (Same as: Robitussin DM) No Longer Active 01/26/2015 [facility] Simethicone 80 mg, 1 tab, Route: PO, Drug form: CHEWTAB, Q6H, Dosing Weight 59.091, kg, PRN Gas, Start date: 01/26/15 9:51:00, Duration: 2 doses or times, Stop date: Limited # of timesNotes: (Same as: Mylicon) No Longer Active 01/26/2015 [facility] Al hydroxide/Mg hydroxide/simethicone 200 mg-200 mg-20 mg/5 mL oral suspension 30 mL, Route: PO, Drug Form: SUSP, Dosing Weight 59.091, kg, Q4H, PRN Indigestion, Start date: 01/26/15 9:51:00, Duration: 30 day, Stop date: 02/25/15 9:50:00Notes: (aluminum hydroxide-magnesium hyd-simethicone [phone]/5ml 30 ml ud WES) No Longer Active 01/26/2015 [facility] Bisacodyl 10 mg, 1 supp, Route: KS, Drug form: SUPP, Daily, Dosing Weight 59.091, kg, PRN Constipation, Start date: 01/26/15 9:51:00, Duration: 30 day, Stop date: 02/25/15 9:50:00Notes: (Same As: Dulcolax, Bisco- Lax) No Longer Active 01/26/2015 [facility] Prednisone 20 mg, 1 tab, Route: PO, Drug form: TAB, TID, Dosing Weight 59.818, kg, Start date: 01/26/15 9:00:00, Duration: 30 day, Stop date: 02/24/15 17:00:00Notes: Take with food. No Longer Active 01/26/2015 [facility] Acetaminophen 0 Refill(s) Active 01/26/2015 [facility] Saline Flush 0.9% 10 ml, Route: IVP, Drug Form: INJ, Dosing Weight 59.818, kg, PRN, PRN Line Flush, Start date: 01/25/15 18:34:00, Duration: 30 day, Stop date: 02/24/15 18:33:00Notes: (Same as: BD Posiflush) No Longer Active 01/25/2015 [facility] Morphine 2 mg, 1 mL, Route: IVP, Drug form: INJ, Q4H, Dosing Weight 59.818, kg, PRN Pain Score 4-6, Start date: 01/25/15 18:34:00, Duration: 30 day, Stop date: 02/24/15 18:33:00Notes: (Same as:MORPhine Sulfate) No Longer Active 01/25/2015 [facility] Tylenol 650 mg, 2 tab, Route: PO, Drug form: TAB, Q6H, Dosing Weight 59.818, kg, PRN Pain 1-3/Temp > 100.4 F, Start date: 01/25/15 18:34:00, Duration: 30 day, Stop date: 02/24/15 18:33:00Notes: Do not exceed 4 gm/day. (Same as: Tylenol) No Longer Active 01/25/2015 [facility] Valproic Acid 100 MG/ML Injectable Solution 1 gm, 10 mL, Route: IVPB, Drug form: INJ, ONCE, Dosing Weight 59.818, kg, Start date: 01/25/15 18:34:00, Stop date: 01/25/15 18:34:00Notes: Dilute in at least 50ml D5W or NS. Infusion rate=20 mg/min (Same As: Depacon) Inactive 01/25/2015 [facility] Ondansetron 4 mg, 2 mL, Route: IVP, Drug form: INJ, Q8H, Dosing Weight 59.818, kg, PRN Nausea & Vomiting, Start date: 01/25/15 18:34:00, Duration: 30 day, Stop date: 02/24/15 18:33:00Notes: (Same as: Zofran) MEDICATION WASTE Product Size: 4 mg Product Wasted: ___ mg No Longer Active 01/25/2015 [facility] Sodium Chloride 0.154 MEQ/ML Injectable Solution 1,000 mL, Rate: 100 ml/hr, Infuse over: 10 hr, Route: IV, Dosing Weight 59.818 kg, Total Volume: 1,000, Start date: 01/25/15 18:34:00, Duration: 30 day, Stop date: 02/24/15 18:33:00 No Longer Active 01/25/2015 [facility] ropivacaine Dosing: Per Nerve Block Dosing Order, Route: NERVE BLOCK, Start date: 08/25/14 19:23:00 400 mL, Dosing Weight 59.818, kg, Duration: 30 day, Stop date: 09/24/14 19:22:00 Inactive 08/26/2014 [facility] Ketorolac 30 mg, Route: IVP, Q6H, Dosing Weight 58.182, kg, Start date: 08/25/14 18:00:00, Duration: 6 doses or times, Stop date: 08/27/14 0:00:00 Inactive 08/26/2014 [facility] Diphenhydramine 12.5 mg, Route: IVP, ONCE, Dosing Weight 59.818, kg, PRN Itching, Start date: 08/25/14 17:09:00 Inactive 08/25/2014 [facility] Acetaminophen 325 MG / Hydrocodone Bitartrate 5 MG Oral Tablet [[place] 5/325] 1 tab, Route: PO, Drug Form: TAB, Dosing Weight 58.182, kg, Q4H, PRN Pain, Start date: 08/25/14 16:18:00, Duration: 30 day, Stop date: 09/24/14 16:17:00 Inactive 08/25/2014 [facility] Ondansetron 4 mg, Route: IVP, ONCE, Dosing Weight 59.818, kg, PRN Nausea & Vomiting, Start date: 08/25/14 16:18:00 Inactive 08/25/2014 [facility] Meperidine 12.5 mg, Route: IVP, Q30Min, Dosing Weight 59.818, kg, PRN Other -See Comment, For shivering, Start date: 08/25/14 16:18:00, Duration: 2 doses or times, Stop date: Limited # of times Inactive 08/25/2014 [facility] Hydromorphone 0.5 mg, Route: IVP, Q5Min, Dosing Weight 59.818, kg, PRN Pain Score 7-10, Start date: 08/25/14 16:18:00, Duration: 4 doses or times, Stop date: Limited # of times Inactive 08/25/2014 [facility] Naloxone 0.04 mg, Route: IVP, Q2MIN, Dosing Weight 59.818, kg, PRN Narcotic Reversal, Start date: 08/25/14 16:18:00, Duration: 8 doses or times, Stop date: Limited # of times Inactive 08/25/2014 [facility] Flumazenil 0.2 mg, Route: IVP, PRN, Dosing Weight 59.818, kg, PRN Benzodiazepine Reversal, Initial dose, Start date: 08/25/14 16:18:00, Duration: 30 day, Stop date: 09/24/14 16:17:00 Inactive 08/25/2014 [facility] Acetaminophen 1,000 mg, Route: IVPB, Drug form: INJ, ONCE, Dosing Weight 59.818, kg, PRN Pain Score 1-3, Start date: 08/25/14 16:18:00, Duration: 1 doses or times, Stop date: Limited # of times Inactive 08/25/2014 [facility] Fentanyl 25 microgram, Route: IVP, Q5Min, Dosing Weight 59.818, kg, PRN Pain Score 4-6, Start date: 08/25/14 16:18:00, Duration: 4 doses or times, Stop date: Limited # of times Inactive 08/25/2014 [facility] Hydromorphone 0.5 mg, Route: IVP, Q3H, Dosing Weight 58.182, kg, PRN Pain Score 4-6, Start date: 08/25/14 15:56:00, Duration: 30 day, Stop date: 09/24/14 15:55:00 Inactive 08/25/2014 [facility] Acetaminophen 325 MG / Hydrocodone Bitartrate 10 MG Oral Tablet 1 tab, Route: PO, Dosing Weight 59.818, kg, Q4H, PRN Pain Score 4-6, Start date: 08/25/14 15:56:00, Duration: 30 day, Stop date: 09/24/14 15:55:00 Inactive 08/25/2014 [facility] Acetaminophen 650 mg, Route: PO, Drug form: TAB, Q4H, Dosing Weight 59.818, kg, PRN Pain 1-3/Temp > 100.4 F, Start date: 08/25/14 15:56:00, Duration: 30 day, Stop date: 09/24/14 15:55:00 Inactive 08/25/2014 [facility] Tramadol 50 mg, Route: PO, Drug form: TAB, Q6H, Dosing Weight 59.818, kg, PRN Pain Score 1-3, Start date: 08/25/14 15:56:00, Duration: 30 day, Stop date: 09/24/14 15:55:00 Inactive 08/25/2014 [facility] Ancef 1 gm, 100 mL, Route: IVPB, Drug form: INJ, ONCE, Dosing Weight 59.818, kg, Start date: 08/25/14 13:22:00, Stop date: 08/25/14 13:22:00 Inactive 08/25/2014 [facility] Calcium Chloride 0.0014 MEQ/ML / Potassium Chloride 0.004 MEQ/ML / Sodium Chloride 0.103 MEQ/ML / Sodium Lactate 0.028 MEQ/ML Injectable Solution 1,000 mL, Rate: 25 ml/hr, Infuse over: 40 hr, Route: IV, Dosing Weight 59.818 kg, Total Volume: 1,000, Start date: 08/25/14 13:18:00, Duration: 30 day, Stop date: 09/24/14 13:17:00 Inactive 08/25/2014 [facility] Zofran 4 mg, Route: IVP, Drug form: INJ, ONCE, Dosing Weight 59.818, kg, Start date: 08/25/14 13:06:00, Stop date: 08/25/14 13:06:00 Inactive 08/25/2014 [facility] Etonogestrel 68 MG Drug Implant [Implanon] 68 mg, SUB-Q, ONCE, # 1 ea, 0 Refill(s) Active 08/25/2014 [facility] Zolpidem tartrate 10 MG Oral Tablet [Ambien] 10 mg=1 tab, PO, Bedtime, for sleep, # 30 tab, 0 Refill(s) Inactive 08/25/2014 [facility] Cephalexin 500 MG Oral Capsule [Keflex] 500 mg=1 cap, PO, QID, # 40 cap, 0 Refill(s) Inactive 08/25/2014 [facility] tramadol hydrochloride 50 MG Oral Tablet [Ultram] 1 - 2 tabs, PO, Q4-6H, as needed for pain, # 30 tab, 0 Refill(s) Active 06/26/2014 [facility] Ondansetron 4 MG Disintegrating Tablet [Zofran] 4 mg=1 tab, PO, TID, as needed for nausea/vomiting, (allow tablet to dissolve on tongue), # 10 tab, 0 Refill(s)Special Instructions: (allow tablet to dissolve on tongue) Active 06/26/2014 [facility] lansoprazole 15 MG Enteric Coated Capsule [Prevacid] 15 mg=1 cap, PO, Daily, # 30 cap, 0 Refill(s) Active 06/26/2014 [facility] Levsin 0.25 mg, Route: IV, ONCE, Dosing Weight 58.182, kg, Start date: 06/25/14 18:46:00, Stop date: 06/25/14 18:46:00 Inactive 06/25/2014 [facility] Dilaudid 0.5 mg, Route: IVP, ONCE, Dosing Weight 58.182, kg, Priority: STAT, Start date: 06/25/14 16:22:00, Stop date: 06/25/14 16:22:00 Inactive 06/25/2014 [facility] Morphine 4 mg, Route: IVP, ONCE, Dosing Weight 58.182, kg, Start date: 06/25/14 16:20:00, Stop date: 06/25/14 16:20:00 Inactive 06/25/2014 [facility] Zofran 4 mg, Route: IVP, ONCE, Dosing Weight 58.182, kg, Start date: 06/25/14 16:20:00, Stop date: 06/25/14 16:20:00 Inactive 06/25/2014 [facility] GI cocktail 30 mL, Route: PO, Dosing Weight 58.182, kg, ONCE, Start date: 06/25/14 15:34:00, Stop date: 06/25/14 15:34:00 Inactive 06/25/2014 [facility] Morphine 4 mg, Route: IVP, ONCE, Dosing Weight 58.182, kg, Start date: 06/25/14 14:37:00, Stop date: 06/25/14 14:37:00 Inactive 06/25/2014 [facility] Zofran 4 mg, Route: IVP, ONCE, Dosing Weight 58.182, kg, Start date: 06/25/14 14:37:00, Stop date: 06/25/14 14:37:00 Inactive 06/25/2014 [facility] Sodium Chloride 0.154 MEQ/ML Injectable Solution 1,000 mL, 1,000 ml/hr, Infuse Over: 1 hr, Route: IV, ONCE, Priority: STAT, Dosing Weight 58.182 kg, Start date: 06/25/14 14:37:00, Duration: 1 doses or times, Stop date: 06/25/14 14:37:00 Inactive 06/25/2014 [facility] Metronidazole 500 MG Oral Tablet 500 mg=1 tab, PO, Q12H, # 14 tab, 0 Refill(s) Active 04/17/2014 [facility] ferrous sulfate 325 mg oral enteric coated tablet 325 mg=1 tab, PO, Daily, # 30 tab, 0 Refill(s) Active 04/17/2014 [facility] ferrous sulfate 325 mg, 1 tab, Route: PO, Drug form: ECTAB, Daily, Dosing Weight 55.455, kg, Start date: 04/17/14 9:00:00, Duration: 30 day, Stop date: 05/16/14 9:00:00Notes: Give with food. "Do Not Crush" No Longer Active 04/17/2014 [facility] Protonix 40 mg, 1 tab, Route: PO, Drug form: ECTAB, Before Breakfast, Start date: 04/17/14 7:30:00, Duration: 30 day, Stop date: 05/16/14 7:30:00Notes: Tablet should not be chewed or crushed. (Same as: Protonix) No Longer Active 04/17/2014 [facility] Flagyl 500 mg, 1 tab, Route: PO, Drug form: TAB, Q12H, Dosing Weight 55.455, kg, Start date: 04/16/14 23:00:00, Duration: 30 day, Stop date: 05/16/14 21:00:00Notes: (Same as: Flagyl) Take with food/ avoid alcohol No Longer Active 04/17/2014 [facility] Acetaminophen 325 MG / Hydrocodone Bitartrate 5 MG Oral Tablet [[place] 5/325] 1 tab, Route: PO, Drug Form: TAB, Dosing Weight 55.455, kg, Q6H, Start date: 04/16/14 22:00:00, Stop date: 05/16/14 5:30:00Notes: (Same as: [place] 325/5) Do not exceed 4gm/day of acetaminophen. No Longer Active 04/17/2014 [facility] Ativan 0.5 mg, 1 tab, Route: PO, Drug form: TAB, TID, Dosing Weight 55.455, kg, PRN Anxiety, Start date: 04/16/14 14:13:00, Duration: 30 day, Stop date: 05/16/14 14:12:00Notes: (Same as: Ativan) No Longer Active 04/16/2014 [facility] Protonix 40 mg, Route: IVP, Drug form: INJ, Daily, Dosing Weight 55.455, kg, Patient is NPO, Priority: NOW, Start date: 04/15/14 12:16:00, Duration: 30 day, Stop date: 05/15/14 9:00:00Notes: For IV push recon stitute with 10 ml 0.9% sodium chloride and push over 2 minutes. (Same as: Protonix) No Longer Active 04/15/2014 [facility] Morphine 4 mg, 2 mL, Route: IVP, Drug form: INJ, ONCE, Dosing Weight 55.455, kg, Start date: 04/15/14 11:59:00, Stop date: 04/15/14 11:59:00Notes: (Same as:MORPhine Sulfate) Inactive 04/15/2014 [facility] Benadryl 25 mg, 1 tab, Route: PO, Drug form: TAB, QID, Dosing Weight 58.182, kg, PRN as needed for itching, Start date: 04/15/14 0:05:00, Duration: 30 day, Stop date: 05/15/14 0:04:00 No Longer Active 04/15/2014 [facility] Ativan 0.5 mg, 0.25 mL, Route: IVP, Drug form: INJ, Q6H, Dosing Weight 58.182, kg, PRN Agitation, Start date: 04/14/14 16:04:00, Duration: 30 day, Stop date: 05/14/14 16:03:00, Pediatric DosingSpecial Instruct ions: Pediatric DosingNotes: (Same as: Ativan) No Longer Active 04/14/2014 [facility] Flagyl 500 mg, 100 mL, Route: IVPB, Drug form: INJ, [id number], Dosing Weight 58.182, kg, Start date: 04/14/14 13:00:00, Duration: 30 day, Stop date: 05/14/14 1:00:00Notes: (Same as: Flagyl) Avoid alcohol. No Longer Active 04/14/2014 [facility] Cipro 400 mg, 200 mL, Route: IVPB, Drug form: INJ, [id number], Dosing Weight 58.182, kg, Start date: 04/14/14 12:00:00, Duration: 30 day, Stop date: 05/14/14 0:00:00Notes: Do not refrigerate No Longer Active 04/14/2014 [facility] Zosyn 3.375 gm, 100 mL, Route: IVPB, Drug form: PDR/INJ, [id number], Dosing Weight 55.727, kg, Priority: Routine, Start date: 04/13/14 22:00:00, Duration: 30 day, Stop date: 05/13/14 14:00:00Notes: (Same as: Zosyn) Infuse over 4 hours. Activate and reconstitute before use. Dosing based on Piperacillin component No Longer Active 04/14/2014 [facility] Saline Flush 0.9% 5 ml, Route: IVP, Drug Form: INJ, Dosing Weight 55.727, kg, PRN, PRN Line Flush, Start date: 04/13/14 21:44:00, Duration: 30 day, Stop date: 05/13/14 21:43:00Notes: (Same as: BD Posiflush) No Longer Active 04/14/2014 [facility] Sodium Chloride 0.154 MEQ/ML Injectable Solution 1,000 mL, Rate: 125 ml/hr, Infuse over: 8 hr, Route: IV, Dosing Weight 55.727 kg, Total Volume: 1,000, Start date: 04/13/14 21:44:00, Duration: 30 day, Stop date: 05/13/14 21:43:00 No Longer Active 04/14/2014 [facility] Ondansetron 4 mg, 2 mL, Route: IVP, Drug form: INJ, Q8H, Dosing Weight 55.727, kg, PRN Nausea & Vomiting, Start date: 04/13/14 21:44:00, Duration: 30 day, Stop date: 05/13/14 21:43:00Notes: (Same as: Zofran) No Longer Active 04/14/2014 [facility] Morphine 1 mg, Route: IVP, Drug form: INJ, Q3H, Dosing Weight 55.727, kg, PRN Pain Score 7-10, Start date: 04/13/14 21:44:00, Duration: 30 day, Stop date: 05/13/14 21:43:00Notes: (Same as:MORPhine Sulfate) No Longer Active 04/14/2014 [facility] Zithromax 1,000 mg, Route: PO, Drug form: PCKT, ONCE, Dosing Weight 55.727, kg, Start date: 04/13/14 21:40:00, Stop date: 04/13/14 21:40:00 Inactive 04/14/2014 [facility] Sodium Chloride 0.154 MEQ/ML Injectable Solution 1,000 mL, 1,000 ml/hr, Infuse Over: 1 hr, Route: IV, 1,000, Drug form: INJ, ONCE, Priority: STAT, Dosing Weight 55.727 kg, Start date: 04/13/14 21:27:00, Duration: 1 doses or times, Stop date: 04/13/14 21:27:00 Inactive 04/14/2014 [facility] Morphine 4 mg, Route: IVP, Drug form: INJ, ONCE, Dosing Weight 55.727, kg, Priority: STAT, Start date: 04/13/14 20:52:00, Stop date: 04/13/14 20:52:00 Inactive 04/14/2014 [facility] Sodium Chloride 0.154 MEQ/ML Injectable Solution 1,000 mL, 1,000 ml/hr, Infuse Over: 1 hr, Route: IV, ONCE, Priority: STAT, Dosing Weight 55.727 kg, Start date: 04/13/14 20:08:00, Duration: 1 doses or times, Stop date: 04/13/14 20:08:00 Inactive 04/14/2014 [facility] Rocephin 1 gm, Route: IVPB, Drug form: PDR/INJ, ONCE, Dosing Weight 55.727, kg, Priority: STAT, Start date: 04/13/14 20:08:00, Stop date: 04/13/14 20:08:00 Inactive 04/14/2014 [facility] Phenergan 25 mg, Route: IVPB, ONCE, Dosing Weight 55.727, kg, Priority: STAT, Start date: 04/13/14 20:08:00, Stop date: 04/13/14 20:08:00 Inactive 04/14/2014 [facility] Morphine 4 mg, Route: IVP, Drug form: INJ, ONCE, Dosing Weight 55.727, kg, Priority: STAT, Start date: 04/13/14 19:20:00, Stop date: 04/13/14 19:20:00 Inactive 04/14/2014 [facility] Sodium Chloride 0.154 MEQ/ML Injectable Solution 1,000 mL, 1,000 ml/hr, Infuse Over: 1 hr, Route: IV, ONCE, Priority: STAT, Dosing Weight 55.727 kg, Start date: 04/13/14 16:48:00, Duration: 1 doses or times, Stop date: 04/13/14 16:48:00 Inactive 04/13/2014 [facility] Ondansetron 4 mg, Route: IVP, Drug form: INJ, ONCE, Dosing Weight 55.727, kg, Priority: STAT, Start date: 04/13/14 16:45:00, Stop date: 04/13/14 16:45:00 Inactive 04/13/2014 [facility] Morphine 4 mg, Route: IVP, Drug form: INJ, ONCE, Dosing Weight 55.727, kg, Priority: STAT, Start date: 04/13/14 16:45:00, Stop date: 04/13/14 16:45:00 Inactive 04/13/2014 [facility] Diphenhydramine 25 mg, Route: IVP, ONCE, Dosing Weight 55.727, kg, Priority: STAT, Start date: 04/13/14 16:42:00, Stop date: 04/13/14 16:42:00 Inactive 04/13/2014 [facility] Dexamethasone 12 mg, Route: IV, ONCE, Dosing Weight 55.727, kg, Priority: STAT, Start date: 04/13/14 16:42:00, Stop date: 04/13/14 16:42:00 Inactive 04/13/2014 [facility] Cefuroxime 500 MG Oral Tablet [Ceftin] 500 mg, 1 tab, Route: PO, Drug form: TAB, [id number], Dosing Weight 59.091, kg, Start date: 11/21/13 18:00:00, Duration: 7 day, Stop date: 11/28/13 6:00:00With food. (Same As: Ceftin) Inactive 11/22/2013 [facility] Ciprofloxacin 500 mg, 1 tab, Route: PO, Drug form: TAB, [id number], Dosing Weight 59.091, kg, Start date: 11/21/13 14:00:00, Duration: 7 day, Stop date: 11/28/13 2:00:00May interfere w/enteral feedings - Take 1 hr before or 2 hrs after antacids, dairy pdt & minerals. On empty stomach. Inactive 11/21/2013 [facility] ciprofloxacin 500 mg oral tablet 500 mg=1 tab, PO, [id number], # 14 tab, 0 Refill(s) Active 11/21/2013 [facility] Guaifenesin 20 MG/ML Oral Solution 200 mg=10 mL, PO, Q6H, Cough, # 120 mL, 0 Refill(s) Active 11/21/2013 [facility] Cefuroxime 500 MG Oral Tablet [Ceftin] 500 mg=1 tab, PO, [id number], # 14 tab, 0 Refill(s) Active 11/21/2013 [facility] Acetaminophen 325 MG / Hydrocodone Bitartrate 5 MG Oral Tablet 1 tab, PO, Q4H, Pain Score 1-3, # 20 tab, 0 Refill(s) Active 11/21/2013 [facility] Robitussin 200 mg, 10 mL, Route: PO, Drug form: LIQ, Q6H, PRN Cough, Start date: 11/21/13 0:58:00, Duration: 30 day, Stop date: 12/21/13 0:57:00(Same as: Robitussin) Inactive 11/21/2013 [facility] Prochlorperazine 5 mg, 1 mL, Route: IV, Drug form: INJ, Q4H, Dosing Weight 59.091, kg, Start date: 11/20/13 16:00:00, Duration: 30 day, Stop date: 12/20/13 12:00:00(Same as: Compazine) No Longer Active 11/20/2013 [facility] topiramate 100 mg, 1 tab, Route: PO, Drug form: TAB, Daily, Dosing Weight 59.091, kg, Start date: 11/20/13 9:00:00, Duration: 30 day, Stop date: 12/19/13 9:00:00(Same As: Topamax) "Do Not Crush" No Longer Active 11/20/2013 [facility] Ceftriaxone 1 gm, Route: IVPB, [id number], Dosing Weight 59.091, kg, Start date: 11/20/13 5:30:00, Duration: 30 day, Stop date: 12/19/13 5:30:00(Same As: Rocephin). Use with 100ml NS mini-bag PLUS and infuse over 30 min No Longer Active 11/20/2013 [facility] Phenergan 25 mg, 1 supp, Route: KS, Drug form: SUPP, Q6H, PRN Nausea, Start date: 11/19/13 22:52:00, Duration: 30 day, Stop date: 12/19/13 22:51:00(Same as: Phenergan) No Longer Active 11/20/2013 [facility] morphine Sulfate 4 mg, 2 mL, Route: IV, Drug form: INJ, Q2H, PRN Pain Score 6-10, Start date: 11/19/13 22:52:00, Duration: 30 day, Stop date: 12/19/13 22:51:00(Same as:MORPhine Sulfate) No Longer Active 11/20/2013 [facility] Amitriptyline 25 mg, 1 tab, Route: PO, Drug form: TAB, Bedtime, Dosing Weight 59.091, kg, Start date: 11/19/13 21:00:00, Duration: 30 day, Stop date: 12/18/13 21:00:00(Same as: Elavil) No Longer Active 11/20/2013 [facility] Depacon 1,000 mg, 10 mL, Route: IVPB, Drug form: INJ, ONCE, Dosing Weight 59.091, kg, Start date: 11/19/13 18:49:00, Stop date: 11/19/13 18:49:00Dilute in at least 50ml D5W or NS. Infusion rate=20 mg/min (Same As: Depacon) Inactive 11/20/2013 [facility] Tamiflu 75 mg, 1 cap, Route: PO, Drug form: CAP, BID, Dosing Weight 59.091, kg, Start date: 11/19/13 17:00:00, Duration: 5 day, Stop date: 11/24/13 9:00:00Take with food. Same as: Tamiflu) Inactive 11/19/2013 [facility] Prevacid 15 mg, Route: PO, Drug form: ECCAP, BID, Dosing Weight 59.091, kg, Start date: 11/19/13 17:00:00, Duration: 30 day, Stop date: 12/19/13 9:00:00 Inactive 11/19/2013 [facility] Protonix 40 mg, 1 tab, Route: PO, Drug form: ECTAB, Before Dinner, Start date: 11/19/13 16:30:00, Duration: 30 day, Stop date: 12/18/13 16:30:00Tablet should not be chewed or crushed. (Same as: Protonix) No Longer Active 11/19/2013 [facility] Tamiflu 75 mg, 1 cap, Route: PO, Drug form: CAP, [id number], Dosing Weight 59.091, kg, Start date: 11/19/13 15:00:00, Duration: 10 doses or times, Stop date: 11/24/13 3:00:00Take with food. Same as: Tamiflu) No Longer Active 11/19/2013 [facility] potassium phosphate + Sodium Chloride 0.9% IV 243.33 mL 20 mmol, 6.67 mL, Route: IV, ONCE, Start date: 11/19/13 13:00:00, Stop date: 11/19/13 13:00:00(Same as: K Phosphate.) 1 mMol phoshate has 1.47 mEq potassium Infuse over 4 hours Inactive 11/19/2013 [facility] Ketorolac Tromethamine 15 MG/ML Injectable Solution 15 mg, 1 mL, Route: IV, Drug form: INJ, Q6H, Dosing Weight 59.091, kg, Start date: 11/19/13 12:00:00, Duration: 1 day, Stop date: 11/20/13 6:00:00(Same as:Toradol) IV bolus must be given >15 seconds. Give IM administration slowly and deeply into the muscle. Not for use > 4 days. No Longer Active 11/19/2013 [facility] potassium chloride 20 mEq, 100 mL, Route: IVPB, Drug form: INJ, Q2H, Start date: 11/19/13 12:00:00, Duration: 2 doses or times, Stop date: 11/19/13 14:00:00(Same as: KCL) Infuse no faster than 10 mEq/hr if given perip herally. Inactive 11/19/2013 [facility] Potassium Chloride 40 mEq, 30 mL, Route: PO, Drug form: LIQ, ONCE, Dosing Weight 59.091, kg, Start date: 11/19/13 8:58:00, Stop date: 11/19/13 8:58:00(Same as: Potassium Chloride) Inactive 11/19/2013 [facility] Neutra-Phos 2 pkt, Route: PO, Drug Form: PDR/REC, Dosing Weight 59.091, kg, ONCE, Start date: 11/19/13 8:57:00, Stop date: 11/19/13 8:57:00(Same as: Neutra-Phos) Each 1.25 gm pkt has 250mg phosphorous. Mix w/2. 5oz water and stir. Inactive 11/19/2013 [facility] topiramate 25 mg oral tablet 100 mg=4 tab, PO, Daily, 0 Refill(s) Active 11/19/2013 [facility] Acetaminophen 325 MG / Hydrocodone Bitartrate 5 MG Oral Tablet [[place] 5/325] 1 tab, PO, Q4H, as needed for pain, 0 Refill(s) Active 11/19/2013 [facility] Oseltamivir 75 MG Oral Capsule [Tamiflu] 75 mg=1 cap, PO, BID, 0 Refill(s) No Longer Active 11/19/2013 [facility] vancomycin 1.5 gm, 250 mL, Route: IVPB, Drug form: INJ, [id number], Start date: 11/19/13 0:00:00, Duration: 30 day, Stop date: 12/18/13 12:00:00Same as: Vancocin-NS (premixed) Inactive 11/19/2013 [facility] Rocephin 2 gm, Route: IVPB, [id number], Dosing Weight 60, kg, Start date: 11/18/13 21:00:00, Duration: 30 day, Stop date: 12/18/13 5:00:00(Same As: Rocephin). No Longer Active 11/19/2013 [facility] Acetaminophen 650 mg, 2 tab, Route: PO, Drug form: TAB, Q4H, Dosing Weight 60, kg, PRN Pain 1-3/Temp > 100.4 F, Start date: 11/18/13 16:34:00, Duration: 30 day, Stop date: 12/18/13 16:33:00Do not exceed 4 gm/day. (Same as: Tylenol) No Longer Active 11/18/2013 [facility] Sodium Chloride 0.154 MEQ/ML Injectable Solution 1,000 mL, Rate: 100 ml/hr, Infuse over: 10 hr, Route: IV, Dosing Weight 60 kg, Total Volume: 1,000, Start date: 11/18/13 16:34:00, Duration: 30 day, Stop date: 12/18/13 16:33:00 No Longer Active 11/18/2013 [facility] Saline Flush 0.9% 5 ml, Route: IVP, Drug Form: INJ, Dosing Weight 60, kg, PRN, PRN Line Flush, Start date: 11/18/13 16:34:00, Duration: 30 day, Stop date: 12/18/13 17:33:00Same as: BD Posiflush Sterile No Longer Active 11/18/2013 [facility] Acetaminophen 325 MG / Hydrocodone Bitartrate 5 MG Oral Tablet 1 tab, Route: PO, Drug Form: TAB, Dosing Weight 60, kg, Q4H, PRN Pain Score 1-3, Start date: 11/18/13 16:34:00, Duration: 30 day, Stop date: 12/18/13 16:33:00(Same as: [place] 325/5) Do not exceed 4gm/day of acetaminophen. No Longer Active 11/18/2013 [facility] Morphine 2 mg, 1 mL, Route: IVP, Drug form: INJ, Q3H, Dosing Weight 60, kg, PRN Pain Score 4-6, Start date: 11/18/13 16:34:00, Duration: 30 day, Stop date: 12/18/13 16:33:00(Same as:MORPhine Sulfate) No Longer Active 11/18/2013 [facility] Ondansetron 4 mg, 2 mL, Route: IVP, Drug form: INJ, Q8H, Dosing Weight 60, kg, PRN Nausea & Vomiting, Start date: 11/18/13 16:34:00, Duration: 30 day, Stop date: 12/18/13 16:33:00(Same as: Zofran) No Longer Active 11/18/2013 [facility] Docusate 100 mg, 1 cap, Route: PO, Drug form: CAP, BID, Dosing Weight 60, kg, PRN Constipation, Start date: 11/18/13 16:34:00, Duration: 30 day, Stop date: 12/18/13 16:33:00(Same as: Colace) (Do Not Crush) No Longer Active 11/18/2013 [facility] lansoprazole 15 MG Enteric Coated Capsule [Prevacid] 15 mg=1 cap, PO, BID, 0 Refill(s) Active 11/18/2013 [facility] amitriptyline 25 mg oral tablet 25 mg=1 tab, PO, Bedtime, 0 Refill(s) Active 11/18/2013 [facility] Sodium Chloride 0.9% (Bolus) IV 1000 mL 1,000 mL, Rate: 1,000 ml/hr, Infuse over: 1 hr, Route: IV, kg, Total Volume: 1,000, Bolus Dose, Priority: STAT, Start date: 08/16/12 8:49:00, Duration: 1 doses or times, Stop date: 08/16/12 9:48:00 IV No Longer Active [facility] 08/16/2012 [facility] Benadryl 25 mg, Route: IVP, ONCE, Dosing Weight 60, kg, Priority: STAT, Start date: 08/16/12 6:26:00, Stop date: 08/16/12 6:26:00 IVP No Longer Active [facility] 08/16/2012 [facility] Zofran ODT 4 mg, 1 tab, Route: PO, Drug form: TABDIS, ONCE, Dosing Weight 60, kg, Priority: STAT, Start date: 08/16/12 5:25:00, Stop date: 08/16/12 5:25:00 PO No Longer Active [facility] 08/16/2012 [facility] normal saline 0.9% IV 1,000 mL 1,000 mL, Rate: 1,000 ml/hr, Infuse over: 1 hr, Route: IV, kg, Total Volume: 1,000, Start date: 08/16/12 4:52:00, Duration: 1 doses or times, Stop date: 08/16/12 5:51:00 IV No Longer Active [facility] 08/16/2012 [facility] Reglan 10 mg, Route: IV, ONCE, Dosing Weight 60, kg, Start date: 08/16/12 4:51:00, Stop date: 08/16/12 4:51:00 IV No Longer Active [facility] 08/16/2012 [facility] Benadryl 25 mg, 1 cap, Route: PO, Drug form: CAP, ONCE, Dosing Weight 60, kg, Priority: STAT, Start date: 08/16/12 4:31:00, Stop date: 08/16/12 4:31:00 PO No Longer Active [facility] 08/16/2012 [facility] NS 1000 mL 1,000 mL, Rate: 100 ml/hr, Infuse over: 10 hr, Route: IV, kg, Total Volume: 1,000, Start date: 08/16/12 4:31:00, Duration: 30 day, Stop date: 09/15/12 4:30:00 IV No Longer Active [facility] 08/16/2012 [facility] Reglan 10 mg oral tablet 1 tab, Route: IV, ONCE, Dosing Weight 60, kg, Start date: 08/16/12 4:30:00, Stop date: 08/16/12 4:30:00 IV No Longer Active [facility] 08/16/2012 [facility] ketorolac Substitution Allowed Active 08/16/2012 [facility] promethazine Substitution Allowed Active 08/16/2012 [facility] Prevacid Substitution Allowed Active 08/16/2012 [facility] propranolol 10 mg oral tablet Substitution Allowed Active 08/16/2012 [facility] dicyclomine 20 mg oral tablet Substitution Allowed Active 08/16/2012 [facility] Flagyl 500 mg oral tablet 500 mg, 1 tab, PO, Q12H, 14 tab, Substitution Allowed PO No Longer Active [facility] 01/11/2012 [facility] doxycycline hyclate 100 mg oral capsule 100 mg, 1 cap, PO, Daily, 14 cap, Substitution Allowed PO No Longer Active [facility] 01/11/2012 [facility] ceftriaxone 250 mg, Route: IM, ONCE, Priority: STAT, Start date: 01/10/12 20:16:00, Stop date: 01/10/12 20:16:00 IM No Longer Active [facility] 01/11/2012 [facility] Sodium Chloride 0.9% (Bolus) IV 1000 mL 1,000 mL, Rate: 1,000 ml/hr, Infuse over: 1 hr, Route: IV, kg, Total Volume: 1,000, Bolus Dose, Priority: STAT, Start date: 01/10/12 19:23:00, Duration: 1 doses or times, Stop date: 01/10/12 20:22:00 IV No Longer Active [facility] 01/11/2012 [facility] droperidol 1.25 mg, 0.5 mL, Route: IV, Drug form: INJ, ONCE, Start date: 01/10/12 19:22:00, Stop date: 01/10/12 19:22:00 IV No Longer Active [facility] 01/11/2012 [facility] morphine Sulfate 4 mg, Route: IVP, ONCE, Pediatric dosing, Priority: STAT, Start date: 01/10/12 19:02:00, Stop date: 01/10/12 19:02:00 IVP No Longer Active [facility] 01/11/2012 [facility] Reglan 5 mg, Route: IVP, ONCE, Priority: STAT, Start date: 01/10/12 17:31:00, Stop date: 01/10/12 17:31:00 IVP No Longer Active [facility] 01/10/2012 [facility] Bentyl 10 mg oral capsule 10 mg, 1 cap, PO, QID, 56 cap, Substitution Allowed, CAP PO Active [facility] 12/20/2011 [facility] Reglan 5 mg, Route: IVP, ONCE, Priority: STAT, Start date: 12/19/11 21:05:00, Stop date: 12/19/11 21:05:00 IVP No Longer Active [facility] 12/20/2011 [facility] prochlorperazine 5 mg, Route: IVP, ONCE, Priority: STAT, Start date: 12/19/11 20:29:00, Stop date: 12/19/11 20:29:00 IVP No Longer Active [facility] 12/20/2011 [facility] Bentyl 20 mg, Route: PO, ONCE, Start date: 12/19/11 20:23:00, Stop date: 12/19/11 20:23:00 PO No Longer Active [facility] 12/20/2011 [facility] Lidocaine Viscous 2% mucous membrane solution 10 mL, Route: PO, ONCE, Start date: 12/19/11 20:22:00, Stop date: 12/19/11 20:22:00 PO No Longer Active [facility] 12/20/2011 [facility] Maalox 30 mL, Route: PO, ONCE, Start date: 12/19/11 20:22:00, Stop date: 12/19/11 20:22:00 PO No Longer Active [facility] 12/20/2011 [facility] Sodium Chloride 0.9% (Bolus) IV 1000 mL 1,000 mL, Rate: 1,000 ml/hr, Infuse over: 1 hr, Route: IV, kg, Total Volume: 1,000, Bolus Dose, Priority: STAT, Start date: 12/19/11 20:15:00, Duration: 1 doses or times, Stop date: 12/19/11 21:14:00 IV No Longer Active [facility] 12/20/2011 [facility] amitriptyline Substitution Allowed Active 12/20/2011 [facility] Vyvanse Substitution Allowed, Maintenance Active 12/20/2011 [facility] lansoprazole Substitution Allowed Active 12/20/2011 [facility] Florastor Substitution Allowed Active 12/20/2011 [facility] melatonin Substitution Allowed Active 12/20/2011 [facility] Carafate Substitution Allowed Active 12/20/2011 [facility] Allergies, Adverse Reactions, Alerts Substance Category Reaction Severity Reaction type Status Date Reported Comments Source contrast media (iodine-based) Assertion Drug allergy Active [facility] Cipro Assertion Drug allergy Active [facility] Immunizations Immunization Date Given Site Status Last Updated Comments Source Results Order Name Results Value Reference Range Date Interpretation Comments Source CHEM PANEL Phosphorus 2.9 mg/dL 2.5 - 4.5 08/05/2016 [facility] CHEM PANEL Globulin 3.1 g/dL 2.7 - 4.2 08/05/2016 [facility] CHEM PANEL A/G Ratio 1.0 0.7 - 1.6 08/05/2016 [facility] CHEM PANEL B/C Ratio 8 6 - 25 08/05/2016 [facility] CHEM PANEL AGAP 13.4 meq/L 10.0 - 20.0 08/05/2016 [facility] CHEM PANEL eGFR 118 mL/min/1.73m2 08/05/2016 Result [...] should be multiplied by the estimated BMI. [facility] CHEM PANEL Albumin Lvl 3.2 g/dL 3.5 - 5.0 08/05/2016 [facility] CHEM PANEL ALT 21 unit/L 0 - 65 08/05/2016 [facility] CHEM PANEL AST 13 unit/L 0 - 37 08/05/2016 [facility] CHEM PANEL Bili Total 0.6 mg/dL 0.2 - 1.3 08/05/2016 [facility] CHEM PANEL Alk Phos 97 unit/L 39 - 136 08/05/2016 [facility] CHEM PANEL Chloride Lvl 112 meq/L 95 - 109 08/05/2016 [facility] CHEM PANEL CO2 20 meq/L 24 - 32 08/05/2016 [facility] CHEM PANEL Calcium Lvl 7.6 mg/dL 8.5 - 10.5 08/05/2016 [facility] CHEM PANEL Total Protein 6.3 g/dL 6.4 - 8.4 08/05/2016 [facility] CHEM PANEL Sodium Lvl 142 meq/L 135 - 145 08/05/2016 [facility] CHEM PANEL Potassium Lvl 3.4 meq/L 3.5 - 5.1 08/05/2016 [facility] CHEM PANEL Glucose Lvl 102 mg/dL 70 - 99 08/05/2016 [facility] CHEM PANEL BUN 6 mg/dL 7 - 22 08/05/2016 [facility] CHEM PANEL Creatinine Lvl 0.73 mg/dL 0.50 - 1.40 08/05/2016 [facility] CHEM PANEL Magnesium Lvl 2.0 mg/dL 1.8 - 2.4 08/05/2016 [facility] HEMATOLOGY Microcyte 1+ *ABN* (08/05/16 4:32 AM) None Seen 08/05/2016 [facility] HEMATOLOGY Eosinophils # 0.3 K/CMM 0.0 - 0.5 08/05/2016 [facility] HEMATOLOGY Lymphocytes # 3.0 K/CMM 1.0 - 5.5 08/05/2016 [facility] HEMATOLOGY Monocytes # 0.4 K/CMM 0.0 - 0.8 08/05/2016 [facility] HEMATOLOGY Segs-Bands # 3.1 K/CMM 1.5 - 8.1 08/05/2016 [facility] HEMATOLOGY Basophils 0.1 % 0.0 - 1.0 08/05/2016 [facility] HEMATOLOGY Eosinophils 4.0 % 0.0 - 4.0 08/05/[address] [facility] Monocytes 6.2 % 2.0 - 12.0 08/05/[address] [facility] Lymphocytes 44.1 % 20.0 - 40.0 08/05/[address] [facility] Segs 45.6 % 45.0 - 75.0 08/05/[address] [facility] MPV 7.0 fL 7.4 - 10.4 08/05/2016 [facility] HEMATOLOGY Platelet 361 K/CMM 133 - 450 08/05/2016 [facility] HEMATOLOGY Hct 32.7 % 36.0 - 48.0 08/05/[address] [facility] MCH 24.1 pg 27.0 - 31.0 08/05/[address] [facility] MCV 71.6 fL 80.0 - 98.0 08/05/2016 [facility] HEMATOLOGY RDW 15.5 % 11.5 - 14.5 08/05/[address] [facility] MCHC 33.6 g/dL 32.0 - 36.0 08/05/[address] [facility] Hgb 11.0 g/dL 12.0 - 16.0 08/05/2016 [facility] HEMATOLOGY WBC 6.8 K/CMM 3.7 - 10.4 08/05/2016 [facility] HEMATOLOGY RBC 4.57 M/CMM 4.20 - 5.40 08/05/2016 [facility] Brain wo contrast CT Brain wo contrast [...] mastoiditis in the appropriate clinical setting. SL: JARED 07/13/2016 - - Read by: Geremias Sandra DO Dictated Date/time: 07/13/16 01:53 Electronically Signed by: Geremias Sandra DO 07/13/16 01:56 FINAL REPORT [facility] URINE CHEM U Preg Negative (07/11/16 4:05 AM) Negative 07/11/2016 [facility] CARDIAC ENZYMES CK MB Index null 0.0 - 2.5 07/11/2016 [facility] CARDIAC ENZYMES Troponin-I null 0.00 - 0.40 07/11/2016 [facility] CARDIAC ENZYMES CK MB null 0.5 - 3.6 07/11/2016 [facility] CARDIAC ENZYMES Total CK 58 unit/L 12 - 191 07/11/2016 [facility] ELECTROLYTES CO2 24 meq/L 24 - 32 07/11/2016 [facility] ELECTROLYTES Calcium Lvl 8.4 mg/dL 8.5 - 10.5 07/11/2016 [facility] ELECTROLYTES eGFR 132 mL/min/1.73m2 07/11/2016 Result Comment: [...] should be multiplied by the estimated BMI. [facility] ELECTROLYTES Creatinine Lvl 0.58 mg/dL 0.50 - 1.40 07/11/2016 [facility] ELECTROLYTES Sodium Lvl 139 meq/L 135 - 145 07/11/2016 [facility] ELECTROLYTES AGAP 13.3 meq/L 10.0 - 20.0 07/11/2016 [facility] ELECTROLYTES Chloride Lvl 105 meq/L 95 - 109 07/11/2016 [facility] ELECTROLYTES Potassium Lvl 3.3 meq/L 3.5 - 5.1 07/11/2016 [facility] ELECTROLYTES BUN 7 mg/dL 7 - 22 07/11/2016 [facility] ELECTROLYTES Glucose Lvl 107 mg/dL 70 - 99 07/11/2016 [facility] HEMATOLOGY Segs 34.5 % 45.0 - 75.0 07/11/2016 [facility] HEMATOLOGY Monocytes 10.2 % 2.0 - 12.0 07/11/2016 [facility] HEMATOLOGY Lymphocytes 52.9 % 20.0 - 40.0 07/11/2016 [facility] HEMATOLOGY Segs-Bands # 3.0 K/CMM 1.5 - 8.1 07/11/2016 [facility] HEMATOLOGY Basophils 0.4 % 0.0 - 1.0 07/11/[address] [facility] Monocytes # 0.9 K/CMM 0.0 - 0.8 07/11/[address] [facility] Lymphocytes # 4.7 K/CMM 1.0 - 5.5 07/11/[address] [facility] Microcyte 2+ *ABN* (07/11/16 2:48 AM) None Seen 07/11/[address] [facility] Eosinophils # 0.2 K/CMM 0.0 - 0.5 07/11/[address] [facility] Eosinophils 2.0 % 0.0 - 4.0 07/11/[address] [facility] RBC 4.80 M/CMM 4.20 - 5.40 07/11/[address] [facility] Hgb 11.5 g/dL 12.0 - 16.0 07/11/[address] [facility] Hct 33.9 % 36.0 - 48.0 07/11/[address] [facility] WBC 8.8 K/CMM 3.7 - 10.4 07/11/[address] [facility] MCV 70.7 fL 80.0 - 98.0 07/11/[address] [facility] Platelet 372 K/CMM 133 - 450 07/11/[address] [facility] RDW 16.5 % 11.5 - 14.5 07/11/[address] [facility] MPV 6.7 fL 7.4 - 10.4 07/11/[address] [facility] MCH 23.9 pg 27.0 - 31.0 07/11/[address] [facility] MCHC 33.9 g/dL 32.0 - 36.0 07/11/2016 [facility] Chest 2 views DX Chest 2 views [...] Brian Dubose MD 07/11/16 02:26 FINAL REPORT [facility] CHEM PANEL A/G Ratio 0.8 0.7 - 1.6 06/29/2015 [facility] CHEM PANEL Globulin 3.7 g/dL 2.0 - 4.0 06/29/2015 [facility] CHEM PANEL B/C Ratio 4 6 - 25 06/29/2015 [facility] CHEM PANEL Chloride Lvl 108 meq/L 95 - 109 06/29/2015 [facility] CHEM PANEL Sodium Lvl 137 meq/L 135 - 145 06/29/2015 [facility] CHEM PANEL Potassium Lvl 3.4 meq/L 3.5 - 5.1 06/29/2015 [facility] CHEM PANEL AGAP 11.4 meq/L 10.0 - 20.0 06/29/2015 [facility] CHEM PANEL eGFR 125 mL/min/1.73m2 06/29/2015 Result [...] should be multiplied by the estimated BMI. [facility] CHEM PANEL Creatinine Lvl 0.7 mg/dL 0.5 - 1.4 06/29/2015 [facility] CHEM PANEL BUN 3 mg/dL 7 - 22 06/29/2015 [facility] CHEM PANEL Calcium Lvl 8.1 mg/dL 8.5 - 10.5 06/29/2015 [facility] CHEM PANEL CO2 21 meq/L 24 - 32 06/29/2015 [facility] CHEM PANEL Glucose Lvl 86 mg/dL 70 - 99 06/29/2015 [facility] CHEM PANEL Total Protein 6.5 g/dL 6.4 - 8.4 06/29/2015 [facility] CHEM PANEL Bili Total 0.5 mg/dL 0.2 - 1.3 06/29/2015 [facility] CHEM PANEL Albumin Lvl 2.8 g/dL 3.5 - 5.0 06/29/2015 [facility] CHEM PANEL AST 9 unit/L 0 - 37 06/29/2015 [facility] CHEM PANEL ALT 18 unit/L 0 - 65 06/29/2015 [facility] CHEM PANEL Alk Phos 74 unit/L 39 - 136 06/29/2015 [facility] ELECTROLYTES AGAP 11.4 meq/L 10.0 - 20.0 06/29/2015 [facility] ELECTROLYTES Chloride Lvl 108 meq/L 95 - 109 06/29/2015 [facility] ELECTROLYTES Potassium Lvl 3.4 meq/L 3.5 - 5.1 06/29/2015 [facility] ELECTROLYTES Sodium Lvl 137 meq/L 135 - 145 06/29/2015 [facility] ELECTROLYTES eGFR 125 mL/min/1.73m2 06/29/2015 Result Comment: [...] should be multiplied by the estimated BMI. [facility] ELECTROLYTES Calcium Lvl 8.1 mg/dL 8.5 - 10.5 06/29/2015 [facility] ELECTROLYTES CO2 21 meq/L 24 - 32 06/29/2015 [facility] ELECTROLYTES Creatinine Lvl 0.7 mg/dL 0.5 - 1.4 06/29/2015 [facility] ELECTROLYTES Glucose Lvl 86 mg/dL 70 - 99 06/29/2015 [facility] ELECTROLYTES BUN 3 mg/dL 7 - 22 06/29/2015 [facility] HEMATOLOGY Platelet 315 K/CMM 133 - 450 06/29/2015 [facility] HEMATOLOGY MPV 7.2 fL 7.4 - 10.4 06/29/2015 [facility] HEMATOLOGY RDW 15.4 % 11.5 - 14.5 06/29/2015 [facility] HEMATOLOGY MCHC 32.0 g/dL 32.0 - 36.0 06/29/2015 [facility] HEMATOLOGY WBC 9.3 K/CMM 3.7 - 10.4 06/29/2015 [facility] HEMATOLOGY RBC 4.45 M/CMM 4.20 - 5.40 06/29/2015 [facility] HEMATOLOGY MCH 23.4 pg 27.0 - 31.0 06/29/2015 [facility] HEMATOLOGY MCV 73.1 fL 80.0 - 98.0 06/29/2015 [facility] HEMATOLOGY Hct 32.6 % 36.0 - 48.0 06/29/2015 [facility] HEMATOLOGY Hgb 10.4 g/dL 12.0 - 16.0 06/29/2015 [facility] HEMATOLOGY Monocytes # 0.8 K/CMM 0.0 - 0.8 06/29/2015 [facility] HEMATOLOGY Lymphocytes # 2.8 K/CMM 1.0 - 5.5 06/29/2015 [facility] HEMATOLOGY Microcyte 1+ *ABN* (06/29/15 5:04 AM) None Seen 06/29/2015 [facility] HEMATOLOGY Basophils # 0.1 K/CMM 0.0 - 0.2 06/29/2015 [facility] HEMATOLOGY Eosinophils # 0.2 K/CMM 0.0 - 0.5 06/29/2015 [facility] HEMATOLOGY Segs-Bands # 5.5 K/CMM 1.5 - 8.1 06/29/2015 [facility] HEMATOLOGY Basophils 0.9 % 0.0 - 1.0 06/29/2015 [facility] HEMATOLOGY Eosinophils 2.1 % 0.0 - 4.0 06/29/2015 [facility] HEMATOLOGY Monocytes 8.5 % 2.0 - 12.0 06/29/2015 [facility] HEMATOLOGY Lymphocytes 29.8 % 20.0 - 40.0 06/29/2015 [facility] HEMATOLOGY Segs 58.7 % 45.0 - 75.0 06/29/2015 [facility] URINE AND STOOL UA Urobilinogen <=1.0 mg/dL 0.1 - 1.0 06/29/2015 [facility] URINE AND STOOL UA Color Ltyellow 06/29/2015 [facility] URINE AND STOOL UA Spec Grav 1.010 <=1.030 06/29/2015 [facility] URINE AND STOOL UA pH 7.0 5.0 - 8.0 06/29/2015 [facility] URINE AND STOOL UA Protein Negative mg/dL Negative mg/dL 06/29/2015 [facility] URINE AND STOOL UA Glucose Negative mg/dL Negative mg/dL 06/29/2015 [facility] URINE AND STOOL UA RBC null 0 - 2 06/29/2015 [facility] URINE AND STOOL UA Blood Negative (06/28/15 7:39 PM) Negative 06/29/2015 [facility] URINE AND STOOL UA Nitrite Negative (06/28/15 7:39 PM) Negative 06/29/2015 [facility] URINE AND STOOL UA Leuk Est Negative (06/28/15 7:39 PM) Negative 06/29/2015 [facility] URINE AND STOOL UA Sq Epi Occasional /LPF Few /LPF 06/29/2015 [facility] URINE AND STOOL UA WBC 4 /HPF 0 - 5 06/29/2015 [facility] URINE AND STOOL UA Ketones Trace mg/dL Negative mg/dL 06/29/2015 [facility] URINE AND STOOL UA Bili Negative *NA* (06/28/15 7:39 PM) Negative 06/29/2015 [facility] URINE AND STOOL UA Turbidity Clear (06/28/15 7:39 PM) Clear 06/29/2015 [facility] URINE CHEM U Preg Positive *ABN* (06/28/15 7:39 PM) Negative 06/29/2015 [facility] ENDOCRINOLOGY S Preg Positive *NA* (06/28/15 5:34 AM) Negative 06/28/2015 [facility] ENDOCRINOLOGY hCG Tot 428 mIU/mL 06/28/2015 [facility] Preg < 14wks Single gest w Transvag [...] Felice Christine MD 06/28/15 15:47 FINAL REPORT [facility] CHEM PANEL Lipase Lvl 147 unit/L 73 - 393 03/06/2015 [facility] CHEM PANEL A/G Ratio 0.9 0.7 - 1.6 03/06/2015 [facility] CHEM PANEL Globulin 4.2 g/dL 2.0 - 4.0 03/06/2015 [facility] CHEM PANEL B/C Ratio 10 6 - 25 03/06/2015 [facility] CHEM PANEL AGAP 11.4 meq/L 10.0 - 20.0 03/06/2015 [facility] CHEM PANEL Bili Total 0.2 mg/dL 0.2 - 1.3 03/06/2015 [facility] CHEM PANEL Alk Phos 116 unit/L 39 - 136 03/06/2015 [facility] CHEM PANEL AST 26 unit/L 0 - 37 03/06/2015 [facility] CHEM PANEL ALT 44 unit/L 0 - 65 03/06/2015 [facility] CHEM PANEL Glucose Lvl 126 mg/dL 70 - 99 03/06/2015 2Interpretive Data: Adult reference range values reflect the clinical guidelines of the [place] [employer]. [facility] CHEM PANEL CO2 25 meq/L 24 - 32 03/06/2015 [facility] CHEM PANEL BUN 7 mg/dL 7 - 22 03/06/2015 [facility] CHEM PANEL Albumin Lvl 3.6 g/dL 3.5 - 5.0 03/06/2015 [facility] CHEM PANEL Total Protein 7.8 g/dL 6.4 - 8.4 03/06/2015 [facility] CHEM PANEL eGFR 125 mL/min/1.73m2 03/06/2015 1Result [...] should be multiplied by the estimated BMI. [facility] CHEM PANEL Creatinine Lvl 0.7 mg/dL 0.5 - 1.4 03/06/2015 [facility] CHEM PANEL Sodium Lvl 141 meq/L 135 - 145 03/06/2015 [facility] CHEM PANEL Potassium Lvl 3.4 meq/L 3.5 - 5.1 03/06/2015 [facility] CHEM PANEL Chloride Lvl 108 meq/L 95 - 109 03/06/2015 [facility] CHEM PANEL Calcium Lvl 8.8 mg/dL 8.5 - 10.5 03/06/[address] [facility] PTT 31.2 s 22.9 - 35.8 03/06/2015 4Interpretive Data: Heparin Therapeutic Range: 57 - [address] [facility] INR 1.06 0.85 - 1.17 03/06/2015 3Interpretive Data: RECOMMENDED RANGES FOR PROTIME INR: 2.0-3.0 for most medical and surgical thromboembolic states. 2.5-3.5 for artificial heart valves and recurrent embolism. INR SHOULD BE USED ONLY FOR PATIENTS ON STABLE ANTICOAGULANT THERAPY. [facility] PT 13.8 s 12.0 - 14.7 03/06/[address] [facility] WBC 10.3 K/CMM 3.7 - 10.4 03/06/[address] [facility] MCHC 32.2 g/dL 32.0 - 36.0 03/06/[address] [facility] RDW 15.3 % 11.5 - 14.5 03/06/[address] [facility] Platelet 387 K/CMM 133 - 450 03/06/[address] [facility] MPV 7.3 fL 7.4 - 10.4 03/06/[address] [facility] RBC 4.98 M/CMM 4.20 - 5.40 03/06/[address] [facility] Hgb 11.5 g/dL 12.0 - 16.0 03/06/[address] [facility] Hct 35.8 % 36.0 - 48.0 03/06/2015 [facility] HEMATOLOGY MCV 71.9 fL 80.0 - 98.0 03/06/2015 [facility] HEMATOLOGY MCH 23.2 pg 27.0 - 31.0 03/06/2015 [facility] HEMATOLOGY Segs-Bands # 4.9 K/CMM 1.5 - 8.1 03/06/2015 [facility] HEMATOLOGY Lymphocytes # 4.1 K/CMM 1.0 - 5.5 03/06/2015 [facility] HEMATOLOGY Monocytes # 1.0 K/CMM 0.0 - 0.8 03/06/2015 [facility] HEMATOLOGY Eosinophils # 0.2 K/CMM 0.0 - 0.5 03/06/2015 [facility] HEMATOLOGY Basophils # 0.1 K/CMM 0.0 - 0.2 03/06/2015 [facility] HEMATOLOGY Microcyte 1+ *ABN* (03/06/15 12:20 AM) None Seen 03/06/2015 [facility] HEMATOLOGY Lymphocytes 40.0 % 20.0 - 40.0 03/06/2015 [facility] HEMATOLOGY Monocytes 10.1 % 2.0 - 12.0 03/06/2015 [facility] HEMATOLOGY Eosinophils 1.9 % 0.0 - 4.0 03/06/2015 [facility] HEMATOLOGY Basophils 0.6 % 0.0 - 1.0 03/06/2015 [facility] HEMATOLOGY Segs 47.4 % 45.0 - 75.0 03/06/2015 [facility] URINE AND STOOL UA Urobilinogen <=1.0 mg/dL 0.1 - 1.0 03/06/2015 [facility] URINE AND STOOL UA Sq Epi Moderate /LPF Few /LPF 03/06/2015 [facility] URINE AND STOOL UA RBC 3 /HPF 0 - 2 03/06/2015 [facility] URINE AND STOOL UA Mucus Few /LPF None Seen /LPF 03/06/2015 [facility] URINE AND STOOL UA Leuk Est Negative (03/06/15 12:13 AM) Negative 03/06/2015 [facility] URINE AND STOOL UA Nitrite Negative (03/06/15 12:13 AM) Negative 03/06/2015 [facility] URINE AND STOOL UA Bili Negative *NA* (03/06/15 12:13 AM) Negative 03/06/2015 [facility] URINE AND STOOL UA Blood Negative (03/06/15 12:13 AM) Negative 03/06/2015 [facility] URINE AND STOOL UA Protein Negative mg/dL Negative mg/dL 03/06/2015 [facility] URINE AND STOOL UA Glucose Negative mg/dL Negative mg/dL 03/06/2015 [facility] URINE AND STOOL UA pH 7.0 5.0 - 8.0 03/06/2015 [facility] URINE AND STOOL UA Turbidity Marked *ABN* (03/06/15 12:13 AM) Clear 03/06/2015 [facility] URINE AND STOOL UA Ketones Negative mg/dL Negative mg/dL 03/06/2015 [facility] URINE AND STOOL UA Spec Grav 1.018 <=1.030 03/06/2015 [facility] URINE AND STOOL UA Color Yellow *NA* (03/06/15 12:13 AM) Yellow 03/06/2015 [facility] URINE CHEM U Preg Negative (03/06/15 12:13 AM) Negative 03/06/2015 [facility] Abdomen/Pelvis w IV contrast CT Abdomen/Pelvis w [...] is normal caliber. Bones are intact. SL: 03/06/2015 - - Read by: Saurabh Bird MD Dictated Date/time: 03/06/15 03:41 Electronically Signed by: Saurabh Bird MD 03/06/15 03:49 FINAL REPORT [facility] Pelvis w Transvag and Pelvis Doppler US [...] Prince Javier MD 01/26/15 16:51 FINAL REPORT [facility] ELECTROLYTES CO2 28 meq/L 24 - 32 01/26/2015 [facility] ELECTROLYTES BUN 6 mg/dL 7 - 22 01/26/2015 [facility] ELECTROLYTES Glucose Lvl 151 mg/dL 70 - 99 01/26/2015 2Interpretive Data: Adult reference range values reflect the clinical guidelines of the [place] [employer]. [facility] ELECTROLYTES eGFR 106 mL/min/1.73m2 01/26/2015 1Result Comment: [...] should be multiplied by the estimated BMI. [facility] ELECTROLYTES Creatinine Lvl 0.8 mg/dL 0.5 - 1.4 01/26/2015 [facility] ELECTROLYTES Sodium Lvl 141 meq/L 135 - 145 01/26/2015 [facility] ELECTROLYTES Potassium Lvl 3.6 meq/L 3.5 - 5.1 01/26/2015 [facility] ELECTROLYTES Calcium Lvl 8.1 mg/dL 8.5 - 10.5 01/26/2015 [facility] ELECTROLYTES Chloride Lvl 106 meq/L 95 - 109 01/26/2015 [facility] ELECTROLYTES AGAP 10.6 meq/L 10.0 - 20.0 01/26/2015 [facility] HEMATOLOGY Eosinophils 1.8 % 0.0 - 4.0 01/26/2015 [facility] HEMATOLOGY Segs 54.2 % 45.0 - 75.0 01/26/[address] [facility] Microcyte 1+ *ABN* (01/26/15 10:22 AM) None Seen 01/26/[address] [facility] Segs-Bands # 4.4 K/CMM 1.5 - 8.1 01/26/[address] [facility] Eosinophils # 0.1 K/CMM 0.0 - 0.5 01/26/[address] [facility] Monocytes # 0.8 K/CMM 0.0 - 0.8 01/26/[address] [facility] Lymphocytes # 2.8 K/CMM 1.0 - 5.5 01/26/[address] [facility] Basophils 0.4 % 0.0 - 1.0 01/26/[address] [facility] Monocytes 9.4 % 2.0 - 12.0 01/26/[address] [facility] Lymphocytes 34.2 % 20.0 - 40.0 01/26/[address] [facility] Platelet 289 K/CMM 133 - 450 01/26/[address] [facility] RDW 16.0 % 11.5 - 14.5 01/26/[address] [facility] MPV 7.0 fL 7.4 - 10.4 01/26/[address] [facility] Hgb 11.1 g/dL 12.0 - 16.0 01/26/[address] [facility] MCHC 32.7 g/dL 32.0 - 36.0 01/26/[address] [facility] MCH 23.7 pg 27.0 - 31.0 01/26/[address] [facility] MCV 72.6 fL 80.0 - 98.0 01/26/[address] [facility] Hct 34.0 % 36.0 - 48.0 01/26/[address] [facility] RBC 4.69 M/CMM 4.20 - 5.40 01/26/[address] [facility] WBC 8.1 K/CMM 3.7 - 10.4 01/26/2015 [facility] Brain wo contrast CT Brain wo contrast [...] Beck Bains MD 01/26/15 13:[address] [facility] Segs 44.7 % 45.0 - 75.0 08/25/[address] [facility] Lymphocytes 44.3 % 20.0 - 40.0 08/25/[address] [facility] Monocytes 8.7 % 2.0 - 12.0 08/25/[address] [facility] Eosinophils 1.9 % 0.0 - 4.0 08/25/[address] [facility] Basophils 0.4 % 0.0 - 1.0 08/25/[address] [facility] Lymphocytes # 4.3 K/CMM 1.0 - 5.5 08/25/[address] [facility] Segs-Bands # 4.3 K/CMM 1.5 - 8.1 08/25/[address] [facility] Monocytes # 0.8 K/CMM 0.0 - 0.8 08/25/[address] [facility] Eosinophils # 0.2 K/CMM 0.0 - 0.5 08/25/[address] [facility] Microcyte 1+ *ABN* (08/25/14 7:20 AM) None Seen 08/25/[address] [facility] RDW 15.6 % 11.5 - 14.5 08/25/[address] [facility] Platelet 389 K/CMM 133 - 450 08/25/[address] [facility] MPV 7.4 fL 7.4 - 10.4 08/25/[address] [facility] Hgb 12.1 g/dL 12.0 - 16.0 08/25/[address] [facility] Hct 37.5 % 36.0 - 48.0 08/25/[address] [facility] MCV 72.5 fL 80.0 - 98.0 08/25/[address] [facility] MCH 23.3 pg 27.0 - 31.0 08/25/[address] [facility] MCHC 32.2 g/dL 32.0 - 36.0 08/25/[address] [facility] WBC 9.7 K/CMM 3.7 - 10.4 08/25/[address] [facility] RBC 5.18 M/CMM 4.20 - 5.40 08/25/2014 [facility] URINE CHEM U Preg Negative (08/25/14 7:20 AM) Negative 08/25/2014 [facility] URINE CHEM U Preg Negative (08/07/14 2:43 PM) Negative 08/07/2014 [facility] Wrist w contrast MRI Wrist w contrast [...] Rik Florence MD 08/08/14 15:45 FINAL REPORT [facility] Wrist arthrogram DX Wrist arthrogram DX LEFT [...] Prince Javier MD 08/10/14 08:49 FINAL REPORT [facility] URINE AND STOOL UA Urobilinogen <=1.0 mg/dL 0.1 - 1.0 06/25/2014 [facility] URINE AND STOOL UA Bacteria Occasional /HPF None Seen /HPF 06/25/2014 [facility] URINE AND STOOL UA Mucus Few /LPF None Seen /LPF 06/25/2014 [facility] URINE AND STOOL UA RBC null 0 - 2 06/25/2014 [facility] URINE AND STOOL UA WBC 3 /HPF 0 - 5 06/25/2014 [facility] URINE AND STOOL UA Nitrite Negative (06/25/14 3:00 PM) Negative 06/25/2014 [facility] URINE AND STOOL UA Leuk Est Small *ABN* (06/25/14 3:00 PM) Negative 06/25/2014 [facility] URINE AND STOOL UA Sq Epi Moderate /LPF Few /LPF 06/25/2014 [facility] URINE AND STOOL UA Bili Negative *NA* (06/25/14 3:00 PM) Negative 06/25/2014 [facility] URINE AND STOOL UA Turbidity Slight *ABN* (06/25/14 3:00 PM) Clear 06/25/2014 [facility] URINE AND STOOL UA Spec Grav 1.023 <=1.030 06/25/2014 [facility] URINE AND STOOL UA pH 6.0 5.0 - 8.0 06/25/2014 [facility] URINE AND STOOL UA Protein Negative mg/dL Negative mg/dL 06/25/2014 [facility] URINE AND STOOL UA Color Yellow *NA* (06/25/14 3:00 PM) Yellow 06/25/2014 [facility] URINE AND STOOL UA Blood Negative (06/25/14 3:00 PM) Negative 06/25/2014 [facility] URINE AND STOOL UA Glucose Negative mg/dL Negative mg/dL 06/25/2014 [facility] URINE AND STOOL UA Ketones Negative mg/dL Negative mg/dL 06/25/2014 [facility] URINE CHEM U Preg Negative (06/25/14 3:00 PM) Negative 06/25/2014 [facility] Abdomen acute series w chest 1 view [...] Felice Christine MD 06/25/14 20:15 FINAL REPORT [facility] CHEM PANEL Lipase Lvl 173 unit/L 73 - 393 06/25/2014 [facility] CHEM PANEL A/G Ratio 1.0 0.7 - 1.6 06/25/2014 [facility] CHEM PANEL Globulin 3.9 g/dL 2.0 - 4.0 06/25/2014 [facility] CHEM PANEL B/C Ratio 18 6 - 25 06/25/2014 [facility] CHEM PANEL AGAP 9.4 meq/L 10.0 - 20.0 06/25/2014 [facility] CHEM PANEL eGFR 107 mL/min/1.73m2 06/25/2014 [...] by the estimated BMI. [facility] CHEM PANEL AST 18 unit/L 0 - 37 06/25/2014 [facility] CHEM PANEL ALT 20 unit/L 0 - 65 06/25/2014 [facility] CHEM PANEL Albumin Lvl 3.9 g/dL 3.5 - 5.0 06/25/2014 [facility] CHEM PANEL Alk Phos 100 unit/L 39 - 136 06/25/2014 [facility] CHEM PANEL Bili Total 0.6 mg/dL 0.2 - 1.3 06/25/2014 [facility] CHEM PANEL Total Protein 7.8 g/dL 6.4 - 8.4 06/25/2014 [facility] CHEM PANEL Potassium Lvl 3.4 meq/L 3.5 - 5.1 06/25/2014 [facility] CHEM PANEL Sodium Lvl 140 meq/L 135 - 145 06/25/2014 [facility] CHEM PANEL Chloride Lvl 107 meq/L 95 - 109 06/25/2014 [facility] CHEM PANEL BUN 14 mg/dL 7 - 22 06/25/2014 [facility] CHEM PANEL Creatinine Lvl 0.8 mg/dL 0.5 - 1.4 06/25/2014 [facility] CHEM PANEL CO2 27 meq/L 24 - 32 06/25/2014 [facility] CHEM PANEL Calcium Lvl 9.3 mg/dL 8.5 - 10.5 06/25/2014 [facility] CHEM PANEL Glucose Lvl 88 mg/dL 70 - 99 06/25/2014 2Interpretive Data: Adult reference range values reflect the clinical guidelines of the [place] [employer]. [facility] CHEM PANEL Amylase Lvl 40 unit/L 25 - 115 06/25/2014 [facility] HEMATOLOGY Eosinophils 2.4 % 0.0 - 4.0 06/25/2014 [facility] HEMATOLOGY Segs-Bands # 3.1 K/CMM 1.5 - 8.1 06/25/2014 [facility] HEMATOLOGY Basophils 0.4 % 0.0 - 1.0 06/25/2014 [facility] HEMATOLOGY Eosinophils # 0.2 K/CMM 0.0 - 0.5 06/25/2014 [facility] HEMATOLOGY Microcyte 2+ *ABN* (06/25/14 2:30 PM) None Seen 06/25/2014 [facility] HEMATOLOGY Monocytes # 0.8 K/CMM 0.0 - 0.8 06/25/2014 [facility] HEMATOLOGY Lymphocytes # 2.4 K/CMM 1.0 - 5.5 06/25/[address] [facility] Lymphocytes 36.6 % 20.0 - 40.0 06/25/[address] [facility] Monocytes 12.4 % 2.0 - 12.0 06/25/2014 [facility] HEMATOLOGY Segs 48.2 % 45.0 - 75.0 06/25/[address] [facility] Platelet 340 K/CMM 133 - 450 06/25/[address] [facility] RDW 18.8 % 11.5 - 14.5 06/25/[address] [facility] MCHC 31.7 g/dL 32.0 - 36.0 06/25/[address] [facility] MCH 22.1 pg 27.0 - 31.0 06/25/[address] [facility] MCV 69.8 fL 80.0 - 98.0 06/25/[address] [facility] MPV 7.2 fL 7.4 - 10.4 06/25/[address] [facility] Hct 37.3 % 36.0 - 48.0 06/25/[address] [facility] Hgb 11.8 g/dL 12.0 - 16.0 06/25/2014 [facility] HEMATOLOGY WBC 6.5 K/CMM 3.7 - 10.4 06/25/2014 [facility] HEMATOLOGY RBC 5.35 M/CMM 4.20 - 5.40 06/25/2014 [facility] IMMUNOLOGY CDC HIV 4th GEN Negative (06/25/14 2:30 PM) Negative 06/25/2014 [facility] Abdomen RUQ US Abdomen RUQ US ABDOMINAL [...] Felice Christine MD 06/25/14 18:22 FINAL REPORT [facility] Wrist 2 views DX Wrist 2 views [...] Rodriguez MD 06/03/14 17:28 FINAL REPORT [facility] HEMATOLOGY Hct 28.7 % 36.0 - 48.0 04/15/2014 [facility] HEMATOLOGY Hgb 9.0 g/dL 12.0 - 16.0 04/15/2014 [facility] Abdomen/Pelvis wo IV contrast CT Abdomen/Pelvis wo [...] Andrew Farrell MD 04/15/14 14:08 FINAL REPORT [facility] CHEM PANEL Magnesium Lvl 1.8 mg/dL 1.8 - 2.4 04/15/2014 [facility] ELECTROLYTES AGAP 13.6 meq/L 10.0 - 20.0 04/15/2014 [facility] ELECTROLYTES eGFR 126 mL/min/1.73m2 04/15/2014 1Result Comment: [...] should be multiplied by the estimated BMI. [facility] ELECTROLYTES Glucose Lvl 85 mg/dL 70 - 99 04/15/2014 4Interpretive Data: Adult reference range values reflect the clinical guidelines of the [place] [employer]. [facility] ELECTROLYTES CO2 25 meq/L 24 - 32 04/15/2014 [facility] ELECTROLYTES Calcium Lvl 8.4 mg/dL 8.5 - 10.5 04/15/2014 [facility] ELECTROLYTES Chloride Lvl 108 meq/L 95 - 109 04/15/2014 [facility] ELECTROLYTES Sodium Lvl 143 meq/L 135 - 145 04/15/2014 [facility] ELECTROLYTES Potassium Lvl 3.6 meq/L 3.5 - 5.1 04/15/2014 [facility] ELECTROLYTES Creatinine Lvl 0.7 mg/dL 0.5 - 1.4 04/15/2014 [facility] ELECTROLYTES BUN 8 mg/dL 7 - 22 04/15/2014 [facility] HEMATOLOGY RBC 4.09 M/CMM 4.20 - 5.40 04/15/2014 [facility] HEMATOLOGY MCH 21.0 pg 27.0 - 31.0 04/15/2014 [facility] HEMATOLOGY MCV 67.6 fL 81.0 - 99.0 04/15/2014 [facility] HEMATOLOGY Hct 27.7 % 36.0 - 48.0 04/15/2014 [facility] HEMATOLOGY Hgb 8.6 g/dL 12.0 - 16.0 04/15/2014 [facility] HEMATOLOGY WBC 7.9 K/CMM 3.7 - 10.4 04/15/2014 [facility] HEMATOLOGY MCHC 31.1 g/dL 32.0 - 36.0 04/15/2014 [facility] HEMATOLOGY MPV 7.7 fL 7.4 - 10.4 04/15/2014 [facility] HEMATOLOGY Platelet 307 K/CMM 133 - 450 04/15/2014 [facility] HEMATOLOGY RDW 15.5 % 11.5 - 14.5 04/15/2014 [facility] HEMATOLOGY Segs 39.9 % 45.0 - 75.0 04/15/2014 [facility] HEMATOLOGY Lymphocytes 51.5 % 20.0 - 40.0 04/15/[address] [facility] Monocytes 8.0 % 2.0 - 12.0 04/15/2014 [facility] HEMATOLOGY Eosinophils 0.4 % 0.0 - 4.0 04/15/2014 [facility] HEMATOLOGY Basophils 0.2 % 0.0 - 1.0 04/15/[address] [facility] Segs-Bands # 3.2 K/CMM 1.5 - 8.1 04/15/[address] [facility] Lymphocytes # 4.1 K/CMM 1.0 - 5.5 04/15/[address] [facility] Microcyte 3+ *NA* (04/15/14 3:00 AM) None Seen 04/15/[address] [facility] Monocytes # 0.6 K/CMM 0.0 - 0.8 04/15/2014 [facility] ANEMIA STUDY % [place] 5 % 12 - 57 04/14/2014 [facility] ANEMIA STUDY TIBC 422 ug/dl 228 - 428 04/14/2014 [facility] ANEMIA STUDY UIBC 402 ug/dl 110 - 370 04/14/2014 [facility] ANEMIA STUDY Iron 20 ug/dl 30 - 160 04/14/2014 [facility] ANEMIA STUDY Ferritin Lvl 3 ng/mL 5 - 204 04/14/2014 [facility] ELECTROLYTES AGAP 12.9 meq/L 10.0 - 20.0 04/14/2014 [facility] ELECTROLYTES Globulin 3.4 g/dL 2.0 - 4.0 04/14/2014 [facility] ELECTROLYTES B/C Ratio 9 6 - 25 04/14/2014 [facility] ELECTROLYTES A/G Ratio 1.0 0.7 - 1.6 04/14/2014 [facility] ELECTROLYTES eGFR 126 mL/min/1.73m2 04/14/2014 2Result Comment: [...] should be multiplied by the estimated BMI. [facility] ELECTROLYTES Creatinine Lvl 0.7 mg/dL 0.5 - 1.4 04/14/2014 [facility] ELECTROLYTES Sodium Lvl 140 meq/L 135 - 145 04/14/2014 [facility] ELECTROLYTES Glucose Lvl 109 mg/dL 70 - 99 04/14/2014 5Interpretive Data: Adult reference range values reflect the clinical guidelines of the [place] [employer]. [facility] ELECTROLYTES BUN 6 mg/dL 7 - 22 04/14/2014 [facility] ELECTROLYTES AST 12 unit/L 0 - 37 04/14/2014 [facility] ELECTROLYTES Alk Phos 83 unit/L 39 - 136 04/14/2014 [facility] ELECTROLYTES Bili Total 0.6 mg/dL 0.2 - 1.3 04/14/2014 [facility] ELECTROLYTES Total Protein 6.9 g/dL 6.4 - 8.4 04/14/2014 [facility] ELECTROLYTES ALT 20 unit/L 0 - 65 04/14/2014 [facility] ELECTROLYTES Calcium Lvl 8.7 mg/dL 8.5 - 10.5 04/14/2014 [facility] ELECTROLYTES Albumin Lvl 3.5 g/dL 3.5 - 5.0 04/14/2014 [facility] ELECTROLYTES Potassium Lvl 3.9 meq/L 3.5 - 5.1 04/14/2014 [facility] ELECTROLYTES Chloride Lvl 107 meq/L 95 - 109 04/14/2014 [facility] ELECTROLYTES CO2 24 meq/L 24 - 32 04/14/2014 [facility] HEMATOLOGY Hgb 9.9 g/dL 12.0 - 16.0 04/14/[address] [facility] RBC 4.68 M/CMM 4.20 - 5.40 04/14/[address] [facility] WBC 7.6 K/CMM 3.7 - 10.4 04/14/[address] [facility] MCV 67.5 fL 81.0 - 99.0 04/14/[address] [facility] Hct 31.6 % 36.0 - 48.0 04/14/[address] [facility] MCH 21.1 pg 27.0 - 31.0 04/14/[address] [facility] MCHC 31.2 g/dL 32.0 - 36.0 04/14/[address] [facility] MPV 7.6 fL 7.4 - 10.4 04/14/[address] [facility] Platelet 363 K/CMM 133 - 450 04/14/[address] [facility] RDW 15.6 % 11.5 - 14.5 04/14/[address] [facility] Microcyte 3+ *NA* (04/14/14 5:53 AM) None Seen 04/14/[address] [facility] Monocytes # 0.2 K/CMM 0.0 - 0.8 04/14/[address] [facility] Lymphocytes # 1.4 K/CMM 1.0 - 5.5 04/14/[address] [facility] Segs-Bands # 6.0 K/CMM 1.5 - 8.1 04/14/[address] [facility] Segs 78.7 % 45.0 - 75.0 04/14/[address] [facility] Lymphocytes 18.9 % 20.0 - 40.0 04/14/[address] [facility] Monocytes 2.3 % 2.0 - 12.0 04/14/[address] [facility] Basophils 0.1 % 0.0 - 1.0 04/14/2014 [facility] IMMUNOLOGY Gonorrhea PCR Negative (04/13/14 7:38 PM) Negative 04/14/2014 [facility] IMMUNOLOGY Source [employer] 04/14/2014 [facility] IMMUNOLOGY Source [facility] [employer] 04/14/2014 [facility] IMMUNOLOGY [place] PCR Negative (04/13/14 7:38 PM) Negative 04/14/2014 [facility] URINE AND STOOL UA Urobilinogen <=1.0 mg/dL 0.1 - 1.0 04/13/2014 [facility] URINE AND STOOL UA Color Yellow *NA* (04/13/14 5:30 PM) Yellow 04/13/2014 [facility] URINE AND STOOL UA Turbidity Slight *ABN* (04/13/14 5:30 PM) Clear 04/13/2014 [facility] URINE AND STOOL UA Spec Grav 1.024 <=1.030 04/13/2014 [facility] URINE AND STOOL UA pH 6.0 5.0 - 8.0 04/13/2014 [facility] URINE AND STOOL UA Protein Negative mg/dL Negative mg/dL 04/13/2014 [facility] URINE AND STOOL UA Ketones Negative mg/dL Negative mg/dL 04/13/2014 [facility] URINE AND STOOL UA Bili Negative *NA* (04/13/14 5:30 PM) Negative 04/13/2014 [facility] URINE AND STOOL UA Glucose Negative mg/dL Negative mg/dL 04/13/2014 [facility] URINE AND STOOL UA Blood Negative (04/13/14 5:30 PM) Negative 04/13/2014 [facility] URINE AND STOOL UA Nitrite Negative (04/13/14 5:30 PM) Negative 04/13/2014 [facility] URINE AND STOOL UA Leuk Est Moderate *ABN* (04/13/14 5:30 PM) Negative 04/13/2014 [facility] URINE AND STOOL UA RBC 3 /HPF 0 - 2 04/13/2014 [facility] URINE AND STOOL UA Sq Epi Occasional /LPF Few /LPF 04/13/2014 [facility] URINE AND STOOL UA WBC 3 /HPF 0 - 5 04/13/2014 [facility] URINE AND STOOL UA Bacteria Occasional /HPF None Seen /HPF 04/13/2014 [facility] URINE AND STOOL UA Mucus Few /LPF None Seen /LPF 04/13/2014 [facility] URINE CHEM U Preg Negative (04/13/14 5:30 PM) Negative 04/13/2014 [facility] CHEM PANEL Lipase Lvl 163 unit/L 73 - 393 04/13/2014 [facility] CHEM PANEL Amylase Lvl 40 unit/L 25 - 115 04/13/2014 [facility] CHEM PANEL Albumin Lvl 4.3 g/dL 3.5 - 5.0 04/13/2014 [facility] CHEM PANEL ALT 17 unit/L 0 - 65 04/13/2014 [facility] CHEM PANEL AST 9 unit/L 0 - 37 04/13/2014 [facility] CHEM PANEL Alk Phos 96 unit/L 39 - 136 04/13/2014 [facility] CHEM PANEL Bili Total 0.7 mg/dL 0.2 - 1.3 04/13/2014 [facility] CHEM PANEL eGFR 107 mL/min/1.73m2 04/13/2014 3Result [...] should be multiplied by the estimated BMI. [facility] CHEM PANEL BUN 9 mg/dL 7 - 22 04/13/2014 [facility] CHEM PANEL Sodium Lvl 138 meq/L 135 - 145 04/13/2014 [facility] CHEM PANEL Creatinine Lvl 0.8 mg/dL 0.5 - 1.4 04/13/2014 [facility] CHEM PANEL Glucose Lvl 101 mg/dL 70 - 99 04/13/2014 6Interpretive Data: Adult reference range values reflect the clinical guidelines of the [place] [employer]. [facility] CHEM PANEL Chloride Lvl 106 meq/L 95 - 109 04/13/2014 [facility] CHEM PANEL CO2 26 meq/L 24 - 32 04/13/2014 [facility] CHEM PANEL Total Protein 8.1 g/dL 6.4 - 8.4 04/13/2014 [facility] CHEM PANEL Calcium Lvl 9.2 mg/dL 8.5 - 10.5 04/13/2014 [facility] CHEM PANEL Potassium Lvl 3.9 meq/L 3.5 - 5.1 04/13/2014 [facility] CHEM PANEL Globulin 3.8 g/dL 2.0 - 4.0 04/13/2014 [facility] CHEM PANEL A/G Ratio 1.1 0.7 - 1.6 04/13/2014 [facility] CHEM PANEL AGAP 9.9 meq/L 10.0 - 20.0 04/13/2014 [facility] CHEM PANEL B/C Ratio 11 6 - 25 04/13/2014 [facility] ENDOCRINOLOGY S Preg Negative *NA* (04/13/14 4:37 PM) Negative 04/13/[address] [facility] MCHC 31.3 g/dL 32.0 - 36.0 04/13/[address] [facility] Platelet 381 K/CMM 133 - 450 04/13/[address] [facility] RDW 15.6 % 11.5 - 14.5 04/13/[address] [facility] MPV 7.3 fL 7.4 - 10.4 04/13/[address] [facility] MCV 67.8 fL 81.0 - 99.0 04/13/[address] [facility] MCH 21.3 pg 27.0 - 31.0 04/13/[address] [facility] RBC 5.06 M/CMM 4.20 - 5.40 04/13/[address] [facility] WBC 7.8 K/CMM 3.7 - 10.4 04/13/[address] [facility] PTT 47.3 s 22.9 - 35.8 04/13/2014 8Interpretive Data: Heparin Therapeutic Range: 57 - [address] [facility] INR 1.20 0.85 - 1.17 04/13/2014 7Interpretive Data: RECOMMENDED RANGES FOR PROTIME INR: 2.0-3.0 for most medical and surgical thromboembolic states. 2.5-3.5 for artificial heart valves and recurrent embolism. INR SHOULD BE USED ONLY FOR PATIENTS ON STABLE ANTICOAGULANT THERAPY. [facility] PT 15.1 s 12.0 - 14.7 04/13/[address] [facility] Eosinophils 0.9 % 0.0 - 4.0 04/13/[address] [facility] Microcyte 3+ *NA* (04/13/14 4:37 PM) None Seen 04/13/[address] [facility] Monocytes # 0.7 K/CMM 0.0 - 0.8 04/13/[address] [facility] Eosinophils # 0.1 K/CMM 0.0 - 0.5 04/13/[address] [facility] Lymphocytes # 3.0 K/CMM 1.0 - 5.5 04/13/[address] [facility] Basophils 0.4 % 0.0 - 1.0 04/13/[address] [facility] Segs-Bands # 4.0 K/CMM 1.5 - 8.1 04/13/[address] [facility] Monocytes 9.0 % 2.0 - 12.0 04/13/2014 [facility] HEMATOLOGY Segs 51.5 % 45.0 - 75.0 04/13/2014 [facility] HEMATOLOGY Lymphocytes 38.2 % 20.0 - 40.0 04/13/2014 [facility] Pelvis w Transvag and Pelvis Doppler US [...] Aki Kendall MD 04/13/14 20:55 FINAL REPORT [facility] Abdomen/Pelvis w/wo IV contrast CT Abdomen/Pelvis w/wo [...] Rudi Candelaria MD 04/13/14 19:12 FINAL REPORT [facility] CHEM PANEL Phosphorus 2.0 mg/dL 2.5 - 4.5 11/20/2013 [facility] CHEM PANEL eGFR 107 mL/min/1.73m2 11/20/2013 1Result [...] by the estimated BMI. [facility] CHEM PANEL AGAP 10.7 meq/L 10.0 - 20.0 11/20/2013 [facility] CHEM PANEL Calcium Lvl 8.0 mg/dL 8.5 - 10.5 11/20/2013 [facility] CHEM PANEL Chloride Lvl 110 meq/L 95 - 109 11/20/2013 [facility] CHEM PANEL CO2 23 meq/L 24 - 32 11/20/2013 [facility] CHEM PANEL BUN 6 mg/dL 7 - 22 11/20/2013 [facility] CHEM PANEL Creatinine Lvl 0.8 mg/dL 0.5 - 1.4 11/20/2013 [facility] [facility] CHEM PANEL Glucose Lvl 119 mg/dL 70 - 99 11/20/2013 3Interpretive Data: Adult reference range values reflect the clinical guidelines of the [place] [employer]. [facility] CHEM PANEL Sodium Lvl 140 meq/L 135 - 145 11/20/2013 [facility] CHEM PANEL Potassium Lvl 3.7 meq/L 3.5 - 5.1 11/20/2013 [facility] HEMATOLOGY Basophils 0.1 % 0.0 - 1.0 11/20/2013 [facility] HEMATOLOGY Segs-Bands # 6.1 K/CMM 1.5 - 8.1 11/20/[address] [facility] Eosinophils 0.2 % 0.0 - 4.0 11/20/[address] [facility] Lymphocytes # 1.3 K/CMM 1.0 - 5.5 11/20/[address] [facility] Monocytes # 0.7 K/CMM 0.0 - 0.8 11/20/[address] [facility] Monocytes 8.8 % 2.0 - 12.0 11/20/[address] [facility] Segs 74.9 % 45.0 - 75.0 11/20/[address] [facility] Lymphocytes 16.0 % 20.0 - 40.0 11/20/[address] [facility] Basophils # 0.0 K/CMM 0.0 - 0.2 11/20/[address] [facility] Eosinophils # 0.0 K/CMM 0.0 - 0.5 11/20/[address] [facility] Platelet 254 K/CMM 133 - 450 11/20/[address] [facility] MPV 7.1 fL 7.4 - 10.4 11/20/[address] [facility] RDW 15.2 % 11.5 - 14.5 11/20/[address] [facility] MCH 24.6 pg 27.0 - 31.0 11/20/[address] [facility] RBC X 10x6 4.17 M/CMM 4.20 - 5.40 11/20/[address] [facility] MCV 74.1 fL 81.0 - 99.0 11/20/[address] [facility] MCHC 33.1 g/dL 32.0 - 36.0 11/20/[address] [facility] Hgb 10.2 g/dL 12.0 - 16.0 11/20/[address] [facility] WBC X 10x3 8.1 K/CMM 3.7 - 10.4 11/20/2013 [facility] HEMATOLOGY Hct 30.9 % 36.0 - 48.0 11/20/2013 [facility] URINE AND STOOL UA Urobilinogen <=1.0 mg/dL 0.1 - 1.0 11/20/2013 [facility] URINE AND STOOL UA Color Ltyellow 11/20/2013 [facility] URINE AND STOOL UA Nitrite Negative (11/20/2013 00:15:41 [place]) Negative 11/20/2013 [facility] URINE AND STOOL UA Leuk Est Negative (11/20/2013 00:15:41 [place]) Negative 11/20/2013 [facility] URINE AND STOOL UA Sq Epi Few /LPF Few /LPF 11/20/2013 [facility] URINE AND STOOL UA RBC 1 /HPF 0 - 2 11/20/2013 [facility] URINE AND STOOL UA Bacteria Occasional /HPF None Seen /HPF 11/20/2013 [facility] URINE AND STOOL UA WBC 2 /HPF 0 - 5 11/20/2013 [facility] URINE AND STOOL UA CaOx Jessenia Occasional /HPF None Seen /HPF 11/20/2013 [facility] URINE AND STOOL UA pH 7.0 5.0 - 8.0 11/20/2013 [facility] URINE AND STOOL UA Spec Grav 1.013 <=1.030 11/20/2013 [facility] URINE AND STOOL UA Protein Negative mg/dL Negative mg/dL 11/20/2013 [facility] URINE AND STOOL UA Turbidity Clear (11/20/2013 00:15:41 [place]) Clear 11/20/2013 [facility] URINE AND STOOL UA Bili Negative *NA* (11/20/2013 00:15:41 [place]) Negative 11/20/2013 [facility] URINE AND STOOL UA Ketones Trace mg/dL Negative mg/dL 11/20/2013 [facility] URINE AND STOOL UA Glucose Negative mg/dL Negative mg/dL 11/20/2013 [facility] URINE AND STOOL UA Blood Small *ABN* (11/20/2013 00:15:41 [place]) Negative 11/20/2013 [facility] MOLECULAR DIAGNOSTIC RSV PCR Negative 8 (11/19/2013 18:57:16 [place]) Negative 11/20/2013 8Interpretive Data: Gen-Probe Prodesse ProFlu plus assay is a multiplex real- [...] verified by the [facility] within [facility]. The [facility] Diagnostic Laboratory is authorized under the Clinical Laboratory Improvement Amendments of 1988 (CLIA-88) to perform high complexity testing. [facility] MOLECULAR DIAGNOSTIC Influenza A PCR Negative (11/19/2013 18:57:16 [place]) Negative 11/20/2013 [facility] MOLECULAR DIAGNOSTIC Influenza B PCR Negative (11/19/2013 18:57:16 [place]) Negative 11/20/2013 [facility] MOLECULAR DIAGNOSTIC Source Respiratory Panel PCR [employer] Swab (11/19/2013 18:57:16 [place]) 11/20/2013 [facility] CHEM PANEL Lactic Acid Lvl 1.1 mMol/L 0.5 - 2.2 11/19/2013 [facility] HEMATOLOGY Elliptocyte Slight *ABN* (11/19/2013 09:40:00 [place]) None Seen 11/19/2013 [facility] HEMATOLOGY Hypochrom Slight (11/19/2013 09:40:00 [place]) None Seen 11/19/2013 [facility] HEMATOLOGY Atypical Lymphs 0.0 % <=0.0 % 11/19/2013 [facility] HEMATOLOGY Plt Morph Normal (11/19/2013 09:40:00 [place]) 11/19/2013 [facility] HEMATOLOGY Tot Cell Ct 100 11/19/2013 [facility] HEMATOLOGY Lymphocytes 25.0 % 20.0 - 40.0 11/19/2013 [facility] HEMATOLOGY Bands 8.0 % 0.0 - 11.0 11/19/2013 [facility] HEMATOLOGY Segs 66.0 % 45.0 - 75.0 11/19/2013 [facility] HEMATOLOGY Monocytes 1.0 % 2.0 - 12.0 11/19/2013 [facility] IMMUNOLOGY EVANGELINA Negative (11/19/2013 04:24:50 [place]) Negative 11/19/2013 [facility] CHEM PANEL Phosphorus 0.8 mg/dL 2.5 - 4.5 11/19/2013 5Result Comment: Critical Result(s) called to Sofía TEE at 11/19/2013 08:13 byab. Read back OK. [facility] CHEM PANEL Magnesium Lvl 1.9 mg/dL 1.8 - 2.4 11/19/2013 [facility] CHEM PANEL Procalcitonin Lvl 0.42 ng/mL 0.00 - 0.10 11/19/2013 [facility] ELECTROLYTES AGAP 15.1 meq/L 10.0 - 20.0 11/19/2013 [facility] ELECTROLYTES B/C Ratio 7 6 - 25 11/19/2013 [facility] ELECTROLYTES Globulin 4.0 g/dL 2.0 - 4.0 11/19/2013 [facility] ELECTROLYTES A/G Ratio 0.8 0.7 - 1.6 11/19/2013 [facility] ELECTROLYTES eGFR 93 mL/min/1.73m2 11/19/2013 2Result Comment: [...] should be multiplied by the estimated BMI. [facility] ELECTROLYTES Bili Total 0.6 mg/dL 0.2 - 1.3 11/19/2013 [facility] ELECTROLYTES ASPARTATE TRANSAMINASE 18 unit/L 0 - 37 11/19/2013 [facility] ELECTROLYTES BUN 6 mg/dL 7 - 22 11/19/2013 [facility] Creatinine Lvl 0.9 mg/dL 0.5 - 1.4 11/19/2013 [facility] ELECTROLYTES Glucose Lvl 101 mg/dL 70 - 99 11/19/2013 4Interpretive Data: Adult reference range values reflect the clinical guidelines of the [place] [employer]. [facility] ELECTROLYTES Calcium Lvl 8.3 mg/dL 8.5 - 10.5 11/19/2013 [facility] ELECTROLYTES Sodium Lvl 137 meq/L 135 - 145 11/19/2013 [facility] ELECTROLYTES Chloride Lvl 108 meq/L 95 - 109 11/19/2013 [facility] ELECTROLYTES CO2 17 meq/L 24 - 32 11/19/2013 [facility] ELECTROLYTES Potassium Lvl 3.1 meq/L 3.5 - 5.1 11/19/2013 [facility] ELECTROLYTES Alk Phos 89 unit/L 39 - 136 11/19/2013 [facility] ELECTROLYTES Total Protein 7.2 g/dL 6.4 - 8.4 11/19/2013 [facility] ELECTROLYTES Albumin Lvl 3.2 g/dL 3.5 - 5.0 11/19/2013 [facility] ELECTROLYTES ALANINE AMINOTRANSFERASE 19 unit/L 0 - 65 11/19/[address] [facility] Sed Rate 39 mm/h 0 - 20 11/19/[address] [facility] INR 1.44 0.85 - 1.17 11/19/2013 6Interpretive Data: RECOMMENDED RANGES FOR PROTIME INR: 2.0-3.0 for most medical and surgical thromboembolic states. 2.5-3.5 for artificial heart valves and recurrent embolism. INR SHOULD BE USED ONLY FOR PATIENTS ON STABLE ANTICOAGULANT THERAPY. [facility] PROTIME 17.3 s 12.0 - 14.7 11/19/[address] [facility] aPTT 40.5 s 22.9 - 35.8 11/19/2013 7Interpretive Data: Heparin Therapeutic Range: 57 - [address] [facility] MPV 7.8 fL 7.4 - 10.4 11/19/[address] [facility] WBC X 10x3 8.3 K/CMM 3.7 - 10.4 11/19/[address] [facility] RBC X 10x6 4.42 M/CMM 4.20 - 5.40 11/19/[address] [facility] RDW 15.3 % 11.5 - 14.5 11/19/[address] [facility] Platelet 253 K/CMM 133 - 450 11/19/[address] [facility] MCH 24.1 pg 27.0 - 31.0 11/19/[address] [facility] MCHC 31.8 g/dL 32.0 - 36.0 11/19/[address] [facility] Hgb 10.6 g/dL 12.0 - 16.0 11/19/[address] [facility] MCV 75.8 fL 81.0 - 99.0 11/19/[address] [facility] Hct 33.5 % 36.0 - 48.0 11/19/2013 [facility] THYROID PANEL TSH 0.577 uIU/mL 0.360 - 3.740 11/19/2013 [facility] VIRAL - SEROLOGY Enterovirus PCR CSF Negative 9 (11/18/2013 21:35:00 [place]) Negative 11/19/2013 9Interpretive Data: Interpretation: Negative.....No enterovirus DNA detected by PCR Positive.....Enterovirus DNA detected by PCR Assay Limitations: A negative result does not rule out the presence of PCR inhibitors in the patient specimen or Enterovirus nucleic acid in concentrations below the level of detection of the assay. [facility] Brain w/wo contrast MRI Brain w/wo contrast [...] Moncada MD 11/07/13 15:18 FINAL REPORT [facility] CHEMISTRY Ketone Quantitative 0.26 mmol/L <=0.27 08/16/2012 Normal [facility] CHEMISTRY U Preg Positive *ABN* (08/16/2012 05:00:00) Negative 08/16/2012 ABN [facility] CHEMISTRY U Preg Negative (02/27/2012 08:00:00) Negative 02/27/2012 Normal [facility] CHEMISTRY U Preg Negative (01/10/2012 19:40:00) Negative 01/11/2012 Normal [facility] URINALYSIS UA Bili Negative *NA* (01/10/2012 19:40:00) Negative 01/11/2012 NA [facility] URINALYSIS UA Blood Negative (01/10/2012 19:40:00) Negative 01/11/2012 Normal [facility] URINALYSIS UA Urobilinogen 0.2 EU/dL 0.1 - 1.0 01/11/2012 Normal [facility] URINALYSIS UA Nitrite Negative (01/10/2012 19:40:00) Negative 01/11/2012 Normal [facility] URINALYSIS UA Leuk Est Negative (01/10/2012 19:40:00) Negative 01/11/2012 Normal [facility] URINALYSIS UA Spec Grav 1.015 <=1.030 01/11/2012 Normal [facility] URINALYSIS UA pH 6.0 5.0 - 8.0 01/11/2012 Normal [facility] URINALYSIS UA Protein Negative mg/dL (01/10/2012 19:40:00) Negative 01/11/2012 Normal [facility] URINALYSIS UA Glucose Negative mg/dL (01/10/2012 19:40:00) Negative 01/11/2012 Normal [facility] URINALYSIS UA Ketones Negative mg/dL *NA* (01/10/2012 19:40:00) Negative 01/11/2012 NA [facility] URINALYSIS UA Color Yellow *NA* (01/10/2012 19:40:00) Yellow 01/11/2012 NA [facility] URINALYSIS UA Turbidity Clear (01/10/2012 19:40:00) Clear 01/11/2012 Normal [facility] URINALYSIS Micro? Performed (01/10/2012 19:40:00) 01/11/2012 Normal [facility] URINALYSIS UA Sq Epi Rare /LPF (01/10/2012 19:40:00) Few 01/11/2012 Normal [facility] URINALYSIS UA WBC None Seen (01/10/2012 19:40:00) None Seen 01/11/2012 Normal [facility] URINALYSIS UA RBC Rare 01/11/2012 [facility] CHEMISTRY BUN 6 mg/dL 7 - 22 01/10/2012 LOW [facility] CHEMISTRY Glucose Lvl 94 mg/dL 70 - 99 01/10/2012 Normal 1Interpretive Data: Adult reference range values reflect the clinical guidelinesof the [place] [employer]. [facility] CHEMISTRY Calcium Lvl 9.5 mg/dL 8.5 - 10.5 01/10/2012 Normal [facility] CHEMISTRY Chloride Lvl 103 meq/L 95 - 109 01/10/2012 Normal [facility] CHEMISTRY CO2 29 meq/L 24 - 32 01/10/2012 Normal [facility] CHEMISTRY Sodium Lvl 141 meq/L 135 - 145 01/10/2012 Normal [facility] CHEMISTRY Potassium Lvl 3.5 meq/L 3.5 - 5.1 01/10/2012 Normal [facility] CHEMISTRY Creatinine Lvl 0.8 mg/dL 0.5 - 1.4 01/10/2012 Normal [facility] CHEMISTRY Bili Total 0.5 mg/dL 0.2 - 1.3 01/10/2012 Normal [facility] CHEMISTRY AST 24 U/L 0 - 37 01/10/2012 Normal [facility] CHEMISTRY Total Protein 7.9 g/dL 6.4 - 8.4 01/10/2012 Normal [facility] CHEMISTRY ALT 51 U/L 0 - 65 01/10/2012 Normal [facility] CHEMISTRY Albumin Lvl 3.9 g/dL 3.5 - 5.0 01/10/2012 Normal [facility] CHEMISTRY Alk Phos 113 U/L 39 - 136 01/10/2012 Normal [facility] CHEMISTRY B/C Ratio 8 6 - 25 01/10/2012 Normal [facility] CHEMISTRY AGAP 12.5 meq/L 10.0 - 20.0 01/10/2012 Normal [facility] CHEMISTRY A/G Ratio 1.0 0.7 - 1.6 01/10/2012 Normal [facility] CHEMISTRY Globulin 4.0 g/dL 2.0 - 4.0 01/10/2012 Normal [facility] HEMATOLOGY MPV 7.4 fL 7.4 - 10.4 01/10/2012 Normal [facility] HEMATOLOGY Platelet 344 K/CMM 133 - 450 01/10/2012 Normal [facility] HEMATOLOGY MCH 24.6 pg 27.0 - 31.0 01/10/2012 LOW [facility] HEMATOLOGY MCV 75.0 fL 81.0 - 99.0 01/10/2012 LOW [facility] HEMATOLOGY RDW 14.3 % 11.5 - 14.5 01/10/2012 Normal [facility] HEMATOLOGY MCHC 32.8 g/dL 32.0 - 36.0 01/10/2012 Normal [facility] HEMATOLOGY Hct 37.3 % 36.0 - 48.0 01/10/2012 Normal [facility] HEMATOLOGY RBC 4.98 M/CMM 4.20 - 5.40 01/10/2012 Normal [facility] HEMATOLOGY Hgb 12.2 g/dL 12.0 - 16.0 01/10/2012 Normal [facility] HEMATOLOGY WBC 15.3 K/CMM 3.7 - 10.4 01/10/2012 [facility] HEMATOLOGY Microcyte 2+ *ABN* (01/10/2012 17:50:00) None Seen 01/10/2012 ABN [facility] HEMATOLOGY Basophils # 0.1 K/CMM 0.0 - 0.2 01/10/2012 Normal [facility] HEMATOLOGY Monocytes # 1.1 K/CMM 0.0 - 0.8 01/10/2012 [facility] HEMATOLOGY Eosinophils # 0.1 K/CMM 0.0 - 0.5 01/10/2012 Normal [facility] HEMATOLOGY Segs-Bands # 10.7 K/CMM 1.5 - 8.1 01/10/2012 [facility] HEMATOLOGY Lymphocytes # 3.3 K/CMM 1.0 - 5.5 01/10/2012 Normal [facility] HEMATOLOGY Monocytes 7.3 % 2.0 - 12.0 01/10/2012 Normal [facility] HEMATOLOGY Basophils 0.8 % 0.0 - 1.0 01/10/2012 Normal [facility] HEMATOLOGY Eosinophils 0.4 % 0.0 - 4.0 01/10/2012 Normal [facility] HEMATOLOGY Lymphocytes 21.7 % 20.0 - 40.0 01/10/2012 [facility] HEMATOLOGY Segs 69.8 % 45.0 - 75.0 01/10/2012 Normal [facility] CHEMISTRY U Preg Negative (12/19/2011 21:25:00) Negative 12/20/2011 Normal [facility] URINALYSIS UA Mucus None Seen (12/19/2011 21:25:00) None Seen 12/20/2011 Normal [facility] URINALYSIS UA Bacteria Occasional /HPF (12/19/2011 21:25:00) None Seen 12/20/2011 Normal [facility] URINALYSIS UA RBC None Seen (12/19/2011 21:25:00) 0 - 2 12/20/2011 Normal [facility] URINALYSIS UA Sq Epi None Seen (12/19/2011 21:25:00) Few 12/20/2011 Normal [facility] URINALYSIS Micro? Performed (12/19/2011 21:25:00) 12/20/2011 Normal [facility] URINALYSIS UA WBC None Seen (12/19/2011 21:25:00) None Seen 12/20/2011 Normal [facility] URINALYSIS UA Blood Negative (12/19/2011 21:25:00) Negative 12/20/2011 Normal [facility] URINALYSIS UA Urobilinogen 0.2 EU/dL 0.1 - 1.0 12/20/2011 Normal [facility] URINALYSIS UA Nitrite Negative (12/19/2011 21:25:00) Negative 12/20/2011 Normal [facility] URINALYSIS UA pH 6.5 5.0 - 8.0 12/20/2011 Normal [facility] URINALYSIS UA Protein Negative mg/dL (12/19/2011 21:25:00) Negative 12/20/2011 Normal [facility] URINALYSIS UA Glucose Negative mg/dL (12/19/2011 21:25:00) Negative 12/20/2011 Normal [facility] URINALYSIS UA Ketones 15 mg/dL *ABN* (12/19/2011 21:25:00) Negative 12/20/2011 ABN [facility] URINALYSIS UA Bili Negative *NA* (12/19/2011 21:25:00) Negative 12/20/2011 NA [facility] URINALYSIS UA Spec Grav 1.010 <=1.030 12/20/2011 Normal [facility] URINALYSIS UA Color Yellow *NA* (12/19/2011 21:25:00) Yellow 12/20/2011 NA [facility] URINALYSIS UA Turbidity Clear (12/19/2011 21:25:00) Clear 12/20/2011 Normal [facility] URINALYSIS UA Leuk Est Negative (12/19/2011 21:25:00) Negative 12/20/2011 Normal [facility] CHEMISTRY Lactic Acid Lvl 0.7 mMol/L 0.5 - 2.2 12/20/2011 Normal [facility] CHEMISTRY Bili Indirect 0.6 mg/dL 0.0 - 1.0 12/20/2011 Normal [facility] CHEMISTRY Globulin 3.7 g/dL 2.0 - 4.0 12/20/2011 Normal [facility] CHEMISTRY A/G Ratio 1.1 0.7 - 1.6 12/20/2011 Normal [facility] CHEMISTRY Bili Total 0.7 mg/dL 0.2 - 1.3 12/20/2011 Normal [facility] CHEMISTRY Bili Direct 0.1 mg/dL 0.0 - 0.3 12/20/2011 Normal [facility] CHEMISTRY ALT 38 U/L 0 - 65 12/20/2011 Normal [facility] CHEMISTRY Alk Phos 117 U/L 39 - 136 12/20/2011 Normal [facility] CHEMISTRY AST 18 U/L 0 - 37 12/20/2011 Normal [facility] CHEMISTRY Albumin Lvl 4.1 g/dL 3.5 - 5.0 12/20/2011 Normal [facility] CHEMISTRY Total Protein 7.8 g/dL 6.4 - 8.4 12/20/2011 Normal [facility] CHEMISTRY Creatinine Lvl 0.9 mg/dL 0.5 - 1.4 12/20/2011 Normal [facility] CHEMISTRY Potassium Lvl 3.6 meq/L 3.5 - 5.1 12/20/2011 Normal [facility] CHEMISTRY Sodium Lvl 138 meq/L 135 - 145 12/20/2011 Normal [facility] CHEMISTRY Glucose Lvl 90 mg/dL 70 - 99 12/20/2011 Normal 1Interpretive Data: Adult reference range values reflect the clinical guidelinesof the [place] [employer]. [facility] CHEMISTRY BUN 7 mg/dL 7 - 22 12/20/2011 Normal [facility] CHEMISTRY Calcium Lvl 9.3 mg/dL 8.5 - 10.5 12/20/2011 Normal [facility] CHEMISTRY Chloride Lvl 100 meq/L 95 - 109 12/20/2011 Normal [facility] CHEMISTRY CO2 25 meq/L 24 - 32 12/20/2011 Normal [facility] CHEMISTRY AGAP 16.6 meq/L 10.0 - 20.0 12/20/2011 Normal [facility] CHEMISTRY Lipase Lvl 117 U/L 73 - 393 12/20/2011 Normal [facility] HEMATOLOGY Segs 68.7 % 45.0 - 75.0 12/20/2011 Normal [facility] HEMATOLOGY Monocytes # 0.3 K/CMM 0.0 - 0.8 12/20/2011 Normal [facility] HEMATOLOGY Eosinophils # 0.1 K/CMM 0.0 - 0.5 12/20/2011 Normal [facility] HEMATOLOGY Eosinophils 0.5 % 0.0 - 4.0 12/20/2011 Normal [facility] HEMATOLOGY Anisocyte 1+ *ABN* (12/19/2011 20:27:00) None Seen 12/20/2011 ABN [facility] HEMATOLOGY Microcyte 1+ *ABN* (12/19/2011 20:27:00) None Seen 12/20/2011 ABN [facility] HEMATOLOGY Basophils # 0.1 K/CMM 0.0 - 0.2 12/20/2011 Normal [facility] HEMATOLOGY Lymphocytes # 3.0 K/CMM 1.0 - 5.5 12/20/2011 Normal [facility] HEMATOLOGY Basophils 1.0 % 0.0 - 1.0 12/20/2011 Normal [facility] HEMATOLOGY Segs-Bands # 7.4 K/CMM 1.5 - 8.1 12/20/2011 Normal [facility] HEMATOLOGY Monocytes 2.4 % 2.0 - 12.0 12/20/2011 Normal [facility] HEMATOLOGY Lymphocytes 27.4 % 20.0 - 40.0 12/20/2011 Normal [facility] HEMATOLOGY Plt Morph Normal (12/19/2011 20:27:00) 12/20/2011 Normal [facility] HEMATOLOGY MCHC 31.8 g/dL 32.0 - 36.0 12/20/2011 LOW [facility] HEMATOLOGY Hct 37.7 % 36.0 - 48.0 12/20/2011 Normal [facility] HEMATOLOGY MCV 76.0 fL 81.0 - 99.0 12/20/2011 [facility] HEMATOLOGY MCH 24.2 pg 27.0 - 31.0 12/20/2011 [facility] HEMATOLOGY RDW 14.3 % 11.5 - 14.5 12/20/2011 Normal [facility] HEMATOLOGY Hgb 12.0 g/dL 12.0 - 16.0 12/20/2011 Normal [facility] HEMATOLOGY RBC 4.96 M/CMM 4.20 - 5.40 12/20/2011 Normal [facility] HEMATOLOGY Platelet 365 K/CMM 133 - 450 12/20/2011 Normal [facility] HEMATOLOGY MPV 6.9 fL 7.4 - 10.4 12/20/2011 LOW [facility] HEMATOLOGY WBC 10.9 K/CMM 3.7 - 10.4 12/20/2011 HI [facility] Vital Signs Vital Sign Value Date Comments Source Temperature Oral (F) 97.8 F 08/06/2016 [facility] Systolic (mm Hg) 104 08/06/2016 [facility] Diastolic (mm Hg) 62 08/06/2016 [facility] Heart Rate 92 08/06/2016 [facility] Respitory Rate 18 08/06/2016 [facility] Systolic (mm Hg) 101 08/06/2016 [facility] Diastolic (mm Hg) 64 08/06/2016 [facility] Respitory Rate 18 08/06/2016 [facility] Heart Rate 107 08/06/2016 [facility] Temperature Oral (F) 97.9 F 08/06/2016 [facility] Respitory Rate 16 08/05/2016 [facility] Heart Rate 98 08/05/2016 [facility] Temperature Oral (F) 97.8 F 08/05/2016 [facility] Systolic (mm Hg) 116 08/05/2016 [facility] Diastolic (mm Hg) 71 08/05/2016 [facility] Height 160.02 cm 08/05/2016 [facility] Height 160.02 cm 08/05/2016 [facility] BMI Calculated 25.56 08/05/2016 [facility] Weight 65.455 08/05/2016 [facility] Temperature Oral (F) 98.2 F 07/13/2016 [facility] Systolic (mm Hg) 110 07/13/2016 [facility] Diastolic (mm Hg) 70 07/13/2016 [facility] Respitory Rate 18 07/13/2016 [facility] Heart Rate 99 07/13/2016 [facility] Weight 60 07/13/2016 [facility] Temperature Oral (F) 98 F 07/13/2016 [facility] Respitory Rate 18 07/13/2016 [facility] Heart Rate 104 07/13/2016 [facility] Systolic (mm Hg) 107 07/13/2016 [facility] Diastolic (mm Hg) 65 07/13/2016 [facility] Temperature Oral (F) 98.0 F 07/13/2016 [facility] Systolic (mm Hg) 108 07/13/2016 [facility] Diastolic (mm Hg) 76 07/13/2016 [facility] Height 160.02 cm 07/13/2016 [facility] Heart Rate 115 07/13/2016 [facility] Respitory Rate 18 07/13/2016 [facility] Weight 60 07/13/2016 [facility] BMI Calculated 23.43 07/13/2016 [facility] Systolic (mm Hg) 108 07/11/2016 [facility] Diastolic (mm Hg) 69 07/11/2016 [facility] Temperature Oral (F) 98.0 F 07/11/2016 [facility] Heart Rate 90 07/11/2016 [facility] Respitory Rate 18 07/11/2016 [facility] Heart Rate 97 07/11/2016 [facility] Temperature Oral (F) 97.8 F 07/11/2016 [facility] Systolic (mm Hg) 102 07/11/2016 [facility] Diastolic (mm Hg) 61 07/11/2016 [facility] Respitory Rate 16 07/11/2016 [facility] [facility] Temperature Oral (F) 98.0 F 07/11/2016 [facility] BMI Calculated 24.5 07/11/2016 [facility] Weight 62.727 07/11/2016 [facility] Height 160.02 cm 07/11/2016 [facility] Systolic (mm Hg) 102 07/11/2016 [facility] Diastolic (mm Hg) 64 07/11/2016 [facility] Heart Rate 127 07/11/2016 [facility] Respitory Rate 18 07/11/2016 [facility] Weight 64.409 06/29/2015 [facility] Systolic (mm Hg) 103 06/29/2015 [facility] Diastolic (mm Hg) 70 06/29/2015 [facility] Heart Rate 100 06/29/2015 [facility] Temperature Oral (F) 98.4 F 06/29/2015 [facility] Respitory Rate 16 06/29/2015 [facility] Temperature Oral (F) 98.5 F 06/29/2015 [facility] Systolic (mm Hg) 89 06/29/2015 [facility] Diastolic (mm Hg) 49 06/29/2015 [facility] Respitory Rate 16 06/29/2015 [facility] Heart Rate 76 06/29/2015 [facility] Heart Rate 87 06/29/2015 [facility] Respitory Rate 18 06/29/2015 [facility] Temperature Oral (F) 98.4 F 06/29/2015 [facility] Systolic (mm Hg) 92 06/29/2015 [facility] Diastolic (mm Hg) 58 06/29/2015 [facility] Weight 59.091 06/28/2015 [facility] BMI Calculated 23.08 06/28/2015 [facility] Height 160.02 cm 06/28/2015 [facility] Systolic (mm Hg) 108 03/06/2015 [facility] Diastolic (mm Hg) 85 03/06/2015 [facility] Temperature Oral (F) 98.0 F 03/06/2015 [facility] Respitory Rate 18 03/06/2015 [facility] Heart Rate 89 03/06/2015 [facility] Systolic (mm Hg) 116 03/06/2015 [facility] Diastolic (mm Hg) 79 03/06/2015 [facility] Heart Rate 109 03/06/2015 [facility] Respitory Rate 18 03/06/2015 [facility] Systolic (mm Hg) 126 03/06/2015 [facility] Diastolic (mm Hg) 86 03/06/2015 [facility] Respitory Rate 10 03/06/2015 [facility] Heart Rate 86 03/06/2015 [facility] Temperature Oral (F) 98.1 F 03/06/2015 [facility] Temperature Oral (F) 98.0 F 03/06/2015 [facility] Height 160.02 cm 03/06/2015 [facility] Weight 59.091 03/06/2015 [facility] BMI Calculated 23.08 03/06/2015 [facility] Heart Rate 97 01/27/2015 [facility] Respitory Rate 18 01/27/2015 [facility] Temperature Oral (F) 98.2 F 01/27/2015 [facility] Systolic (mm Hg) 105 01/27/2015 [facility] Diastolic (mm Hg) 71 01/27/2015 [facility] Heart Rate 93 01/27/2015 [facility] Temperature Oral (F) 98.0 F 01/27/2015 [facility] Respitory Rate 20 01/27/2015 [facility] Systolic (mm Hg) 113 01/27/2015 [facility] Diastolic (mm Hg) 75 01/27/2015 [facility] Respitory Rate 20 01/27/2015 [facility] Systolic (mm Hg) 102 01/27/2015 [facility] Diastolic (mm Hg) 56 01/27/2015 [facility] Temperature Oral (F) 98.4 F 01/27/2015 [facility] Heart Rate 118 01/27/2015 [facility] Weight 59.091 01/25/2015 [facility] BMI Calculated 23.08 01/25/2015 [facility] Height 160.02 cm 01/25/2015 [facility] Diastolic (mm Hg) 58 08/25/2014 [facility] Systolic (mm Hg) 107 08/25/2014 [facility] Respitory Rate 17 08/25/2014 [facility] Systolic (mm Hg) 109 08/25/2014 [facility] Diastolic (mm Hg) 69 08/25/2014 [facility] Diastolic (mm Hg) 64 08/25/2014 [facility] Respitory Rate 12 08/25/2014 [facility] Systolic (mm Hg) 105 08/25/2014 [facility] Respitory Rate 11 08/25/2014 [facility] Heart Rate 96 08/25/2014 [facility] Temperature Oral (F) 97.5 F 08/25/2014 [facility] BMI Calculated 23.36 08/25/2014 [facility] Weight 59.818 08/25/2014 [facility] Height 160.02 cm 08/25/2014 [facility] Heart Rate 75 06/26/2014 [facility] Temperature Oral (F) 97.7 F 06/26/2014 [facility] Systolic (mm Hg) 99 06/26/2014 [facility] Diastolic (mm Hg) 61 06/26/2014 [facility] Respitory Rate 16 06/26/2014 [facility] Systolic (mm Hg) 95 06/25/2014 [facility] Heart Rate 63 06/25/2014 [facility] Respitory Rate 16 06/25/2014 [facility] Diastolic (mm Hg) 52 06/25/2014 [facility] Temperature Oral (F) 98.0 F 06/25/2014 [facility] Weight 58.182 06/25/2014 [facility] BMI Calculated 22.72 06/25/2014 [facility] Height 160.02 cm 06/25/2014 [facility] Temperature Oral (F) 98.3 F 06/25/2014 [facility] Heart Rate 85 06/25/2014 [facility] Diastolic (mm Hg) 69 06/25/2014 [facility] Systolic (mm Hg) 104 06/25/2014 [facility] Respitory Rate 16 06/25/2014 [facility] Diastolic (mm Hg) 68 04/18/2014 [facility] Systolic (mm Hg) 100 04/18/2014 [facility] Respitory Rate 16 04/18/2014 [facility] Temperature Oral (F) 97.8 F 04/18/2014 [facility] Heart Rate 95 04/18/2014 [facility] Temperature Oral (F) 99.2 F 04/18/2014 [facility] Heart Rate 101 04/18/2014 [facility] Diastolic (mm Hg) 64 04/18/2014 [facility] Respitory Rate 16 04/18/2014 [facility] Systolic (mm Hg) 96 04/18/2014 [facility] Respitory Rate 16 04/17/2014 [facility] Temperature Oral (F) 97.9 F 04/17/2014 [facility] Heart Rate 96 04/17/2014 [facility] Systolic (mm Hg) 102 04/17/2014 [facility] Diastolic (mm Hg) 70 04/17/2014 [facility] BMI Calculated 21.66 04/15/2014 [facility] Weight 55.455 04/15/2014 [facility] Height 160.02 cm 04/15/2014 [facility] Weight 58.182 04/14/2014 [facility] BMI Calculated 22.72 04/14/2014 [facility] Height 160.02 cm 04/14/2014 [facility] Weight 55.727 04/13/2014 [facility] BMI Calculated 21.76 04/13/2014 [facility] Height 160.02 cm 04/13/2014 [facility] Temperature Oral (F) 98.2 F 11/21/2013 [facility] Heart Rate 91 11/21/2013 [facility] Respitory Rate 15 11/21/2013 [facility] Diastolic (mm Hg) 61 11/21/2013 [facility] Systolic (mm Hg) 97 11/21/2013 [facility] Temperature Oral (F) 97.9 F 11/21/2013 [facility] Diastolic (mm Hg) 62 11/21/2013 [facility] Systolic (mm Hg) 99 11/21/2013 [facility] Respitory Rate 15 11/21/2013 [facility] Heart Rate 98 11/21/2013 [facility] Systolic (mm Hg) 114 11/21/2013 [facility] Diastolic (mm Hg) 68 11/21/2013 [facility] Heart Rate 105 11/21/2013 [facility] Temperature Oral (F) 99.6 F 11/21/2013 [facility] Respitory Rate 15 11/21/2013 [facility] BMI Calculated 23.08 11/19/2013 [facility] Height 160.02 cm 11/19/2013 [facility] Weight 59.091 11/19/2013 [facility] Weight 60.000 08/16/2012 [facility] Diastolic (mm Hg) 64 02/27/2012 [facility] Systolic (mm Hg) 109 02/27/2012 [facility] Respitory Rate 21 02/27/2012 [facility] Diastolic (mm Hg) 71 02/27/2012 [facility] Respitory Rate 22 02/27/2012 [facility] Systolic (mm Hg) 110 02/27/2012 [facility] Diastolic (mm Hg) 71 02/27/2012 [facility] Systolic (mm Hg) 110 02/27/2012 [facility] Respitory Rate 29 02/27/2012 [facility] Weight 62.700 02/27/2012 [facility] Height 162.00 cm 02/27/2012 [facility] Height 160.02 cm 01/10/2012 [facility] Weight 60.000 01/10/2012 [facility] Weight 59.545 12/19/2011 [facility] Height 160.02 cm 12/19/2011 [facility] Encounters Location Location Details Encounter Type Encounter Number Reason For Visit Attending Provider ADM Date DC Date Status Source [facility] Emergency [id number] FIDELINA PATI 12/19/2011 12/19/2011 Active [facility] Emergency [id number] LEFT SIDE PAIN FIDELINA PATI 01/10/2012 01/10/2012 Active [facility] Emergency [id number] MILAGROS MARVIN 08/16/2012 08/16/2012 Active [facility] [place] [facility] [id number] _[id number] Fidelina Wright 11/06/2013 11/07/2013 [facility] Inpatient [id number] _MAPID:[id number] Bossman Oconnor 11/19/2013 11/22/2013 [facility] Inpatient [id number] Sharla Germain 04/13/2014 04/18/2014 [facility] [place] [facility] [id number] Дмитрий Wakefield 06/03/2014 06/04/2014 [facility] [id number] Joreg Mahajan 06/25/2014 06/26/2014 [facility] Outpatient [id number] Nakul Sharma 08/07/2014 08/08/2014 [facility] OBS Day Surgery [id number] Nakul Sharma 08/25/2014 08/26/2014 [facility] Inpatient [id number] Sharla Germain 01/26/2015 01/27/2015 [facility] [id number] Faith Candelaria 03/06/2015 03/06/2015 [facility] Inpatient [id number] Chavez Feldman 06/28/2015 06/29/2015 [facility] Emergency [id number] Jocy Mckeonqi 07/11/2016 07/11/2016 [facility] Emergency [id number] Cj Blackman 07/13/2016 07/13/2016 [facility] Emergency [id number] Faith Noriega 07/13/2016 07/13/2016 [facility] Observation [id number] William Melvin Jr 08/05/2016 08/06/2016 [facility] DS [id number] DSU/ ABD PAIN ESSAM IMSEIS Active [facility] Procedures Procedure Code Date Perfomer Comments Source Tonsillectomy [id number] [facility] Tonsillectomy [id number] [facility] Tonsillectomy [id number] [facility]
[2018-08-19] MEDS ORDERED: TYLENOL WITH C1 EACH PO (19:58)
[2018-08-19] MEDS ORDERED: AUGMENTIN 875-1 EACH PO (19:58)
== END 2018-08-19 20:03 | disposition home or self-care (01) ==
LOC: FSED 19:28
DX: K08.89 Other specified disorders of teeth and supporting structures (principal); K02.9 Dental caries, unspecified; K21.9 Gastro-esophageal reflux disease without esophagitis; F41.9 Anxiety disorder, unspecified; F31.9 Bipolar disorder, unspecified; Z88.8 Allergy status to other drugs, medicaments and biological substances; Z88.1 Allergy status to other antibiotic agents; Z91.041 Radiographic dye allergy status
CPT/HCPCS: 99283

== ENCOUNTER 2019-07-08 16:20 | Emergency (ER) | payer OTHER ==
[~2019-07-08] VITALS: Ht 160 cm; Wt 74.8 kg
[~2019-07-08 16:20] MED LIST changes: +AUGMENTIN 875-1 EACH PO; +TYLENOL WITH C1 EACH PO
--- NOTE | 2019-07-08 17:01 | NUR ---
ULTRASOUND CALLED 25 MINUTE ETA
--- NOTE | 2019-07-08 17:29 | NUR ---
US AT BEDSIDE, VITAL SIGNS STABLE, PT AWARE OF POC, FAMILY AT BEDSIDE
--- NOTE | 2019-07-08 18:22 | Diagnostic Imaging Report ---
EXAM: Transvaginal Pelvic Ultrasound INDICATION: Abdominal pain. Cramps. COMPARISON: None TECHNIQUE: Grayscale transverse and sagittal transvaginal images were obtained of the pelvis. Transvaginal imaging was medically necessary to better evaluate the endometrium and the adnexa. CLINICAL HISTORY: 23 year old A...; last menstrual period: 06/15/2019. Positive test. Beta hCG pending FINDINGS: Limited study due to overlying bowel gas. Uterus Orientation: Normal Size: 5.4 x 3.0 x 3.7 cm, Normal Mass: None Cervix: Normal Endometrium: Thickness: 0.5 cm, Normal. Appearance: Homogeneous echotexture without focal thickening. Right ovary: Not seen Left ovary: Size: 3.1 x 3.0 x 3.2 cm Mass/Cyst: 1.2 x 1.4 x 1.0 cm left ovarian anechoic area could be due to a ovarian cyst or possibly an ectopic in the appropriate clinical context. Adnexa: Normal Cul-de-sac: Small free fluid IMPRESSION: 1.2 x 1.4 x 1.0 cm left ovarian anechoic area could be due to a ovarian cyst or possibly an ectopic in the appropriate clinical context. Correlation with beta hCG and follow-up pelvic ultrasound is indicated to document resolution. Right ovary not seen. Limited study due to overlying bowel gas. Signed by: Dr. Dominick Lynn M.D. on 07/08/2019 6:19 PM
[2019-07-08] MEDS ORDERED: ACETAMINOPHEN 325 MG TAB ONE (18:29)
[2019-07-08] MEDS ORDERED: ACETAMINOPHEN 325 MG TAB PO PRN (18:30)
[2019-07-08] MEDS ORDERED: ACETAMINOPHEN 325 MG TAB PO ONE (20:30)
[2019-07-08 21:29] VITALS: BP 108/68
== END 2019-07-08 20:35 | disposition home or self-care (01) ==
LOC: FSED 16:20
DX: O26.91 Pregnancy related conditions, unspecified, first trimester (principal); R10.2 Pelvic and perineal pain
CPT/HCPCS: 36415; 76801; 80053; 81003; 81025; 84702; 85025; 99283

== ENCOUNTER 2020-09-25 23:59 | Inpatient (IN) | payer OTHER ==
[~2020-09-25] VITALS: Ht 160 cm; Wt 90.5 kg
[2020-09-26] VITALS (8 sets, daily range): BP systolic 100–132; BP diastolic 60–84
[2020-09-26] MEDS ORDERED: SODIUM CHLORIDE 0.9% 1000ML 1,000 ML IV STA (00:24)
[2020-09-26] MEDS ORDERED: FAMOTIDINE 20 MG/2 ML VIAL IV ONE ×2 (00:30→00:57)
[2020-09-26] MEDS ORDERED: PROMETHAZINE 25MG/ NS 50ML (IV) IV ONE (00:30)
[2020-09-26] MEDS ORDERED: KETOROLAC TROMETHAMINE 30 MG/ML VIAL IV ONE (00:30)
[2020-09-26] MEDS ORDERED: HYDROCODONE/APAP 5MG-325MG TAB PO ONE (00:30)
[2020-09-26] MEDS ORDERED: DIPHENHYDRAMINE HCL INJ 50 MG/ML VIAL IV ONE (00:30)
[2020-09-26] MEDS ORDERED: DIPHENHYDRAMINE HCL INJ 50 MG/ML VIAL ONE (00:57)
[2020-09-26] MEDS ORDERED: HYDROCODONE/APAP 5MG-325MG TAB ONE (00:57)
[2020-09-26] MEDS ORDERED: SODIUM CHLORIDE 0.9% 1000ML 1,000 ML ONE (00:57)
[2020-09-26] MEDS ORDERED: KETOROLAC TROMETHAMINE 30 MG/ML VIAL ONE (00:57)
[2020-09-26] MEDS ORDERED: PROMETHAZINE HCL (IM) 25 MG/ML VIAL IM ONE (00:57)
[2020-09-26] MEDS ORDERED: CEFTRIAXONE SOD 1 GM/NS 50 ML 50 ML IV ONE ×2 (01:30→03:15)
[2020-09-26] MEDS ORDERED: CEFTRIAXONE SOD 1 GM VIAL IV ONE (01:30)
[2020-09-26] MEDS ORDERED: DEXTROSE 5%/0.45% SOD CHL 1,000 ML IV SCH (02:15)
[2020-09-26] MEDS ORDERED: ZOLPIDEM TARTRATE 5 MG TAB PO PRN (02:15)
[2020-09-26] MEDS ORDERED: KETOROLAC TROMETHAMINE 30 MG/ML VIAL IM PRN (02:15)
[2020-09-26] MEDS ORDERED: ACETAMIN/BUTALBITAL/CAFFEINE TAB PO PRN ×2 (02:15→07:30)
[2020-09-26] MEDS ORDERED: [UNRECOGNIZED DRUG - OTHER] (04:08)
[2020-09-26] MEDS ORDERED: GABAPENTIN100 MG PO (04:09)
[2020-09-26] MEDS ORDERED: STADOL NS PRN (07:30)
[2020-09-26] MEDS ORDERED: GABAPENTIN 100 MG CAP PO PRN (07:30)
[2020-09-26] MEDS: FAMOTIDINE 20 MG/2 ML VIAL IV SCH ×2 (08:29→16:02)
[2020-09-26] MEDS: DIPHENHYDRAMINE HCL INJ 50 MG/ML VIAL IV PRN ×3 (08:33→22:10)
[2020-09-26] MEDS: PROMETHAZINE 25MG/ NS 50ML (IV) IV PRN ×4 (08:34→22:10)
[2020-09-26] MEDS ORDERED: CEFTRIAXONE SOD 1 GM VIAL IV SCH (09:00)
[2020-09-26] MEDS ORDERED: KETOROLAC TROMETHAMINE 10 MG TAB PO PRN ×2 (09:00→09:30)
[2020-09-26] MEDS: CEFTRIAXONE SOD 1 GM/NS 50 ML 50 ML IV SCH ×2 (09:05→20:12)
[2020-09-26] MEDS: DEXTROSE 5%/0.45% SOD CHL 1,000 ML IV SCH ×2 (13:15→22:25)
[2020-09-26] MEDS: BENZONATATE 100 MG CAP PO PRN (13:30)
[2020-09-26] MEDS: KETOROLAC TROMETHAMINE 30 MG/ML VIAL IV PRN ×2 (16:04→22:10)
[2020-09-26] MEDS: MELATONIN 5 MG TABLET PO SCH (20:12)
[2020-09-27] VITALS (8 sets, daily range): BP systolic 97–111; BP diastolic 66–82
[2020-09-27] MEDS ORDERED: TESSALON PERLE100 MG PO (01:58)
[2020-09-27] MEDS ORDERED: Acetamin/Butalbital/Caffeine PO (01:58)
[2020-09-27] MEDS: DIPHENHYDRAMINE HCL INJ 50 MG/ML VIAL IV PRN ×4 (04:20→23:00)
[2020-09-27] MEDS: KETOROLAC TROMETHAMINE 30 MG/ML VIAL IV PRN ×4 (04:20→23:00)
[2020-09-27] MEDS: PROMETHAZINE 25MG/ NS 50ML (IV) IV PRN ×4 (04:20→23:00)
[2020-09-27] MEDS: DEXTROSE 5%/0.45% SOD CHL 1,000 ML IV SCH ×3 (07:20→16:08)
[2020-09-27 07:26] LABS: BASOPHILS # (AUTO) 0.1 (0.0-0.1); BASOPHILS % 0.4 % (0.0-1.0); EOSINOPHILS # (AUTO) 0.3 (0.0-0.4); EOSINOPHILS % 2.7 % (0.0-6.0); HEMATOCRIT 31.7 % (34.2-44.1); HEMOGLOBIN 9.3 g/dL (12.0-16.0); LYMPHOCYTES # (AUTO) 2.9 (1.0-3.2); LYMPHOCYTES % 25.2 % (18.0-39.1); MEAN CORPUSCULAR HEMOGLOBIN 19.5 pg (28-32); MEAN CORPUSCULAR HGB CONC 29.3 g/dL (31-35); MEAN CORPUSCULAR VOLUME 66.6 fL (81-99); MONOCYTES # (AUTO) 0.9 (0.2-0.8); MONOCYTES % 8.1 % (4.4-11.3); NEUTROPHILS # (AUTO) 7.2 (2.1-6.9); NEUTROPHILS % 63.3 % (38.7-80.0); PLATELET COUNT 313 x10e3/uL (140-360); RED BLOOD COUNT 4.76 x10e6/uL (3.6-5.1); RED CELL DISTRIBUTION WIDTH 17.7 % (11.7-14.4)
[2020-09-27 07:53] LABS: CHOL/HDL RATIO 4.9 (3.0-3.6); MAGNESIUM 1.7 MG/DL (1.3-2.1); PHOSPHORUS 3.2 MG/DL (2.3-4.7)
[2020-09-27 08:13] LABS: ANION GAP 13.4 mmol/L (8-16); BLOOD UREA NITROGEN 7 mg/dL (7-26); BUN/CREATININE RATIO 10 (6-25); CALCIUM 7.8 mg/dL (8.4-10.2); CARBON DIOXIDE 22 mmol/L (22-29); CHLORIDE 105 mmol/L (98-107); CREATININE, SERUM 0.69 mg/dL (0.57-1.11); EST GLOMERULAR FILTRATION RATE > 60 ML/MIN (60-); GLUCOSE 101 mg/dL (74-118); POTASSIUM 3.4 mmol/L (3.5-5.1); SODIUM 137 mmol/L (136-145); THYROID STIMULATING HORMONE 2.421 uIU/mL (0.350-4.940)
[2020-09-27] MEDS: FAMOTIDINE 20 MG/2 ML VIAL IV SCH ×2 (08:49→16:58)
[2020-09-27] MEDS: CEFTRIAXONE SOD 1 GM/NS 50 ML 50 ML IV SCH ×2 (08:49→21:46)
[2020-09-27] MEDS ORDERED: POTASSIUM CHLORIDE 20 MEQ TAB CR PO ONE (13:00)
[2020-09-27] MEDS: BENZONATATE 100 MG CAP PO PRN (13:15)
[2020-09-27 17:22] LABS: CLARITY,URINE CLEAR (CLEAR); COLOR,URINE YELLOW (YELLOW); KETONES,URINE NEGATIVE (NEGATIVE); LEUKOCYTE ESTERASE ,URINE NEGATIVE (NEGATIVE); NITRITE,URINE NEGATIVE (NEGATIVE); PROTEIN,URINE DIPSTICK NEGATIVE (NEGATIVE); URINE UROBILINOGEN 0.2 mg/dL (0.2 - 1)
[2020-09-27 17:34] LABS: BACTERIA,URINE RARE /HPF; EPITHELIAL CELLS,URINE MODERATE /LPF
[2020-09-27] MEDS: MELATONIN 5 MG TABLET PO SCH (21:46)
[2020-09-28 00:21] VITALS: BP 96/72
[2020-09-28] MEDS: DIPHENHYDRAMINE HCL INJ 50 MG/ML VIAL IV PRN (05:20)
[2020-09-28] MEDS: DEXTROSE 5%/0.45% SOD CHL 1,000 ML IV SCH (05:20)
[2020-09-28] MEDS: KETOROLAC TROMETHAMINE 30 MG/ML VIAL IV PRN ×2 (05:20→12:04)
[2020-09-28] MEDS: PROMETHAZINE 25MG/ NS 50ML (IV) IV PRN (05:20)
[2020-09-28 06:15] VITALS: BP 117/78
[2020-09-28 06:17] LABS: BASOPHILS # (AUTO) 0.1 (0.0-0.1); BASOPHILS % 0.6 % (0.0-1.0); EOSINOPHILS # (AUTO) 0.4 (0.0-0.4); EOSINOPHILS % 4.6 % (0.0-6.0); HEMATOCRIT 33.7 % (34.2-44.1); HEMOGLOBIN 9.9 g/dL (12.0-16.0); LYMPHOCYTES # (AUTO) 3.3 (1.0-3.2); LYMPHOCYTES % 41.3 % (18.0-39.1); MEAN CORPUSCULAR HEMOGLOBIN 19.4 pg (28-32); MEAN CORPUSCULAR HGB CONC 29.4 g/dL (31-35); MEAN CORPUSCULAR VOLUME 66.2 fL (81-99); MONOCYTES # (AUTO) 0.8 (0.2-0.8); MONOCYTES % 9.9 % (4.4-11.3); NEUTROPHILS # (AUTO) 3.5 (2.1-6.9); NEUTROPHILS % 43.2 % (38.7-80.0); PLATELET COUNT 324 x10e3/uL (140-360); RED BLOOD COUNT 5.09 x10e6/uL (3.6-5.1); RED CELL DISTRIBUTION WIDTH 17.8 % (11.7-14.4)
[2020-09-28 07:13] LABS: ALANINE AMINOTRANSFERASE 21 IU/L (0-55); ALBUMIN 3.2 g/dL (3.5-5.0); ALBUMIN/GLOBULIN RATIO 0.8 (0.8-2.0); ALKALINE PHOSPHATASE 79 IU/L (40-150); ANION GAP 12.5 mmol/L (8-16); BLOOD UREA NITROGEN 9 mg/dL (7-26); BUN/CREATININE RATIO 13 (6-25); CALCIUM 8.4 mg/dL (8.4-10.2); CARBON DIOXIDE 22 mmol/L (22-29); CHLORIDE 105 mmol/L (98-107); CREATININE, SERUM 0.71 mg/dL (0.57-1.11); EST GLOMERULAR FILTRATION RATE > 60 ML/MIN (60-); GLUCOSE 102 mg/dL (74-118); POTASSIUM 3.5 mmol/L (3.5-5.1); SODIUM 136 mmol/L (136-145)
[2020-09-28 07:53] VITALS: BP 117/79
[2020-09-28 07:58] VITALS: BP 117/79
[2020-09-28] MEDS: CEFTRIAXONE SOD 1 GM/NS 50 ML 50 ML IV SCH (09:00)
[2020-09-28] MEDS ORDERED: METRONIDAZOLE500 MG PO (11:33)
[2020-09-28] MEDS ORDERED: PENICILLIN V P500 MG PO (11:33)
[2020-09-28] MEDS ORDERED: VANCOCIN HCL250 MG PO (11:33)
[2020-09-28] MEDS ORDERED: TYLENOL # 31 EA PO (11:33)
[2020-09-28 11:40] VITALS: BP 112/80
[2020-09-28] MEDS ORDERED: METRONIDAZOLE 250 MG TAB PO SCH (12:00)
[2020-09-28] MEDS ORDERED: VANCOMYCIN 250MG/5ML ORAL SOLN PO SCH (12:00)
[2020-09-28] MEDS ORDERED: METRONIDAZOLE 500 MG TAB PO SCH (12:00)
[2020-09-28] MEDS: FAMOTIDINE 20 MG/2 ML VIAL IV SCH (12:17)
[2020-09-28] MEDS ORDERED: FAMOTIDINE 20 MG TAB PO SCH (16:30)
== END 2020-09-28 13:05 | disposition home or self-care (01) | DRG 372 ==
LOC: FSED 09-26 00:18 → ERHOLD 09-26 02:08 → MED/SURG3 09-26 03:29 → OBSVTOIN 09-27 15:31
PROVIDERS: ADMIT Internal Medicine; ATTEND Internal Medicine
DX: A04.72 Enterocolitis due to Clostridium difficile, not specified as recurrent (principal); N39.0 Urinary tract infection, site not specified; J06.9 Acute upper respiratory infection, unspecified; B95.61 Methicillin susceptible Staphylococcus aureus infection as the cause of diseases classified elsewhere; F31.9 Bipolar disorder, unspecified; F41.8 Other specified anxiety disorders; Z20.822 Contact with and (suspected) exposure to COVID-19; F41.9 Anxiety disorder, unspecified; F32.9 Major depressive disorder, single episode, unspecified; E87.6 Hypokalemia; E83.51 Hypocalcemia; G43.719 Chronic migraine without aura, intractable, without status migrainosus
CPT/HCPCS: 36415; 80048; 80053; 80061; 81001; 81003; 81025; 83036; 83518; 83735; 84100; 84443; 85025; 87493; 99251; 99284; G0378; J0696; J1200; J1885; J2550; J7030; U0002

== ENCOUNTER 2020-12-15 16:12 | Emergency (ER) | payer OTHER ==
[~2020-12-15] VITALS: Ht 160 cm; Wt 77.1 kg
[~2020-12-15 16:12] MED LIST changes: +Acetamin/Butalbital/Caffeine PO; +GABAPENTIN100 MG PO; +METRONIDAZOLE500 MG PO; +PENICILLIN V P500 MG PO; +TESSALON PERLE100 MG PO; +TYLENOL # 31 EA PO; +VANCOCIN HCL250 MG PO; +[UNRECOGNIZED DRUG - OTHER]
[2020-12-15] MEDS ORDERED: DEXAMETHASONE 4 MG TAB PO STA (16:24)
[2020-12-15] MEDS ORDERED: PREDNISONE 20 MG TAB PO ONE (16:30)
[2020-12-15] MEDS ORDERED: PREDNISONE20 MG PO (16:31)
[2020-12-15] MEDS ORDERED: PREDNISONE 10 MG TAB ONE (16:44)
== END 2020-12-15 16:53 | disposition home or self-care (01) ==
LOC: ER 16:19
DX: R21 Rash and other nonspecific skin eruption (principal); K21.9 Gastro-esophageal reflux disease without esophagitis; F41.9 Anxiety disorder, unspecified; F31.9 Bipolar disorder, unspecified
CPT/HCPCS: 99283; J7512

== ENCOUNTER 2020-12-23 09:23 | Emergency (ER) | payer OTHER ==
[~2020-12-23] VITALS: Ht 160 cm; Wt 77.1 kg
[~2020-12-23 09:23] MED LIST changes: +PREDNISONE20 MG PO
== END 2020-12-23 09:48 | disposition home or self-care (01) ==
LOC: ER 09:44
DX: U07.1 COVID-19 (principal); R53.1 Weakness; K21.9 Gastro-esophageal reflux disease without esophagitis; F31.9 Bipolar disorder, unspecified
CPT/HCPCS: 99282

== ENCOUNTER 2021-04-11 15:16 | Emergency (ER) | payer OTHER ==
[~2021-04-11] VITALS: Ht 160 cm; Wt 77.1 kg
[2021-04-11] MEDS ORDERED: ONDANSETRON HCL 4 MG ORAL DISINTEGRATING TAB PO ONE (16:30)
[2021-04-11] MEDS ORDERED: PHENERGAN25 MG/1 ML PO (17:08)
== END 2021-04-11 18:21 | disposition home or self-care (01) ==
LOC: ER 15:50
DX: N93.9 Abnormal uterine and vaginal bleeding, unspecified (principal)
CPT/HCPCS: 81025; 99283; Q0162

== ENCOUNTER 2021-06-03 20:31 | Emergency (ER) | payer OTHER ==
[~2021-06-03] VITALS: Ht 160 cm; Wt 77.1 kg
[~2021-06-03 20:31] MED LIST changes: +PHENERGAN25 MG/1 ML PO
[2021-06-03] MEDS ORDERED: ULTRAM 50MG50 MG PO ×2 (22:07→22:10)
== END 2021-06-03 22:21 | disposition home or self-care (01) ==
LOC: FSED 20:50
DX: M25.561 Pain in right knee (principal); M25.461 Effusion, right knee; W01.0XXA Fall on same level from slipping, tripping and stumbling without subsequent striking against object, initial encounter; Y93.01 Activity, walking, marching and hiking; Y92.008 Other place in unspecified non-institutional (private) residence as the place of occurrence of the external cause; F41.9 Anxiety disorder, unspecified; F31.9 Bipolar disorder, unspecified; K21.9 Gastro-esophageal reflux disease without esophagitis; K58.9 Irritable bowel syndrome, unspecified
CPT/HCPCS: 81025; 99283

== ENCOUNTER 2022-06-07 10:36 | Emergency (ER) | payer OTHER ==
[~2022-06-07] VITALS: Ht 160 cm; Wt 87.6 kg
[2022-06-07] MEDS ORDERED: KETOROLAC TROMETHAMINE 30 MG/ML VIAL IV STA (11:44)
[2022-06-07] MEDS ORDERED: ONDANSETRON HCL INJ 2MG/ML 2ML 2 MG/ML VIAL IV STA (11:44)
[2022-06-07] MEDS ORDERED: ONDANSETRON HCL INJ 2MG/ML 2ML 2 MG/ML VIAL ONE (12:12)
[2022-06-07] MEDS ORDERED: KETOROLAC TROMETHAMINE 30 MG/ML VIAL ONE (12:12)
[2022-06-07] MEDS ORDERED: SODIUM CHLORIDE 0.9% 1000ML 1,000 ML IV ONE (12:15)
[2022-06-07] MEDS ORDERED: SUMATRIPTAN SUCCINATE 6 MG/0.5 ML VIAL SC ONE (13:00)
[2022-06-07] MEDS ORDERED: HYDROCODONE/APAP 10MG-325MG TAB PO ONE (14:15)
[2022-06-07] MEDS ORDERED: HYDROCODONE/APAP 5MG-325MG TAB PO ONE (14:15)
[2022-06-07] MEDS ORDERED: HYDROCODONE/APAP 5MG-325MG TAB ONE (14:21)
== END 2022-06-07 14:39 | disposition home or self-care (01) ==
LOC: FSED 11:45
DX: G43.709 Chronic migraine without aura, not intractable, without status migrainosus (principal); K21.9 Gastro-esophageal reflux disease without esophagitis; F41.9 Anxiety disorder, unspecified; F31.9 Bipolar disorder, unspecified
CPT/HCPCS: 99283; J1885; J2405; J3030

== ENCOUNTER 2022-07-17 15:47 | Emergency (ER) | payer OTHER ==
[~2022-07-17] VITALS: Ht 160 cm; Wt 85.1 kg
[2022-07-17] MEDS ORDERED: SODIUM CHLORIDE 0.9% 1000ML 1,000 ML ONE ×2 (16:44→17:35)
[2022-07-17] MEDS ORDERED: ONDANSETRON HCL INJ 2MG/ML 2ML 2 MG/ML VIAL ONE ×2 (16:44→18:47)
[2022-07-17] MEDS ORDERED: IBUPROFEN 600 MG TAB ONE (17:21)
[2022-07-17] MEDS ORDERED: IBUPROFEN 600 MG TAB PO STA (17:26)
[2022-07-17] MEDS ORDERED: ONDANSETRON HCL INJ 2MG/ML 2ML 2 MG/ML VIAL IV STA ×2 (17:29→18:29)
[2022-07-17] MEDS ORDERED: PROMETHAZINE 25MG/ NS 50ML (IV) IV ONE (17:30)
[2022-07-17] MEDS ORDERED: SODIUM CHLORIDE 0.9% 1000ML 1,000 ML IV ONE ×2 (17:30)
[2022-07-17] MEDS ORDERED: CEFTRIAXONE 1 GM VIAL ONE (17:34)
[2022-07-17] MEDS ORDERED: PROMETHAZINE HCL (IM) 25 MG/ML VIAL IM ONE (17:34)
[2022-07-17] MEDS ORDERED: PROMETHAZINE HC25 M1 PO (19:02)
[2022-07-17] MEDS ORDERED: CEFUROXIME500 MG PO (19:03)
== END 2022-07-17 20:01 | disposition home or self-care (01) ==
LOC: FSED 15:49
DX: R50.9 Fever, unspecified (principal); J10.1 Influenza due to other identified influenza virus with other respiratory manifestations; J02.0 Streptococcal pharyngitis; N39.0 Urinary tract infection, site not specified; R11.2 Nausea with vomiting, unspecified
CPT/HCPCS: 81003; 81025; 83518; 87400; 96374; 96375; 96376; 99283; J0696; J2405; J2550; J7030

== ENCOUNTER 2023-01-02 02:41 | Emergency (ER) | payer OTHER ==
[~2023-01-02] VITALS: Ht 160 cm; Wt 83.9 kg
[~2023-01-02 02:41] MED LIST changes: +CEFUROXIME500 MG PO
[2023-01-02] MEDS ORDERED: KETOROLAC TROMETHAMINE 30 MG/ML VIAL IM STA (02:54)
[2023-01-02] MEDS ORDERED: KETOROLAC TROMETHAMINE 60 MG/2 ML VIAL ONE (02:57)
[2023-01-02] MEDS ORDERED: HYDROCODONE/APAP 5MG-325MG TAB ONE (02:58)
[2023-01-02] MEDS ORDERED: HYDROCODONE/APAP 5MG-325MG TAB PO ONE (03:00)
[2023-01-02] MEDS ORDERED: ACETAMINOPHEN/CODEINE 300MG - 30MG TAB PO ONE (03:00)
[2023-01-02] MEDS ORDERED: DOXYCYCLINE HY100 MG PO (03:06)
[2023-01-02] MEDS ORDERED: ORAJEL TOP (03:11)
[2023-01-02] MEDS ORDERED: [UNRECOGNIZED DRUG - OTHER] TOP (03:11)
[2023-01-02] MEDS ORDERED: KETOROLAC TROME10 MG PO (03:12)
== END 2023-01-02 03:30 | disposition home or self-care (01) ==
LOC: FSED 02:45
DX: K02.9 Dental caries, unspecified (principal); S02.5XXA Fracture of tooth (traumatic), initial encounter for closed fracture; K21.9 Gastro-esophageal reflux disease without esophagitis; F31.9 Bipolar disorder, unspecified; F41.9 Anxiety disorder, unspecified; F17.210 Nicotine dependence, cigarettes, uncomplicated
CPT/HCPCS: 99283; J1885